=== PATIENT | female | born 1975 | race Caucasian/White ===

== ENCOUNTER → 2016-08-12 | Outpatient (CLI) | payer BC ==
[~2016-08-12] MED LIST: ACET325T96 PO; ALBUAER INH; ALBUAER PO; CLR10 PO; DIPH1TAB PO; EPIN1INJ37 IM; HYDR-5688 PO; IBUP-103 PO; LANS30TA3 PO; ONDA4TAB46 PO; POTA10TA32 PO; POTA10TA79 PO; PRD10 PO; SYMIN INH
--- NOTE | 2016-08-12 12:36 | MAMMOGRAPHY REPORT ---
ULTRASOUND OF BOTH BREASTS: 08/12/2016 CLINICAL HISTORY: 41 year-old woman called back from screening mammography for a 10 mm curvilinear c ircumscribed and lobulated mass in the lower inner quadrant of the left breast. Unknown family hist ory of breast cancer. COMPARISON: Comparison is made to exam dated: 08/07/2016 mammogram - [facility]. FINDINGS: Targeted ultrasound was performed in the lower inner quadrant of the left breast. In the 7:00 axis, 4 cm from the nipple, there are 3 adjacent oval parallel circumscribed anechoic cysts. In conglomerate they measure 11.7 mm in greatest dimension. This correlates with the mammographic a ppearance of a curvilinear and lobulated 10 mm mass in the left lower inner quadrant. These cysts a re benign and no further workup is needed at this time. Recommend follow-up at time of next annual screening mammogram. IMPRESSION: ACR BI-RADS CATEGORY 2: BENIGN The lobulated curvilinear circumscribed mass in the lower inner quadrant of the left breast correlat es with 3 adjacent oval parallel anechoic simple cysts on ultrasound. No further workup is needed a t this time. Recommend follow-up at time of next annual screening mammogram. These results and rec ommendations were discussed with the patient at the time of the exam. Margarita Turner M.D. ay/:08/12/2016 10:51:55 [employer]: Mariama BARRETO)([place]), [facility] letter sent: Normal 1/2 BI-RADS Code: ACR BI-RADS Category 2: Benign
== END | disposition home or self-care (01) ==
LOC: C.MAMM 10:20
PROVIDERS: ATTEND Obstetrics & Gynecology
DX: N63 Unspecified lump in breast (principal)

== ENCOUNTER → 2016-08-12 | Outpatient (CLI) | payer BC, OTHER ==
[2016-08-12 16:07] LABS: BLOOD UREA NITROGEN 8 mg/dl (7-18); BUN/CREATININE RATIO 9.7 (10-20); CARBON DIOXIDE 27 mmol/L (21-32); CHLORIDE 104 mmol/L (98-107); CREATININE 0.81 mg/dl (0.60-1.20); GLUCOSE 99 mg/dl (70-99); POTASSIUM 4.5 mmol/L (3.5-5.1); SODIUM 137 mmol/L (136-145)
== END | disposition home or self-care (01) ==
LOC: C.LAB 12:32
PROVIDERS: ATTEND Family Medicine
DX: E87.6 Hypokalemia (principal)

== ENCOUNTER 2016-08-16 16:26 | Emergency (ER) | payer BC, OTHER ==
[~2016-08-16] VITALS: Ht 165.1 cm; Wt 94.8 kg
[~2016-08-16 16:26] MED LIST changes: -ACET325T96 PO; -ALBUAER PO; -CLR10 PO; -DIPH1TAB PO; -EPIN1INJ37 IM; -HYDR-5688 PO; -IBUP-103 PO; -LANS30TA3 PO; -ONDA4TAB46 PO; -POTA10TA79 PO; -PRD10 PO
[2016-08-16 16:40] VITALS: TEMP 37; Ht 165.1 cm; Wt 94.8 kg
[2016-08-16] MEDS ORDERED: KETOROLAC TROMETHAMINE 30 MG/ML VIAL IV STA (17:35)
[2016-08-16] MEDS ORDERED: SODIUM CHLORIDE 0.9% 1000ML 2,000 ML IV STA (17:35)
[2016-08-16] MEDS ORDERED: ONDANSETRON INJ 2 MG/ML 2 ML VIAL IV STA (17:35)
[2016-08-16] MEDS ORDERED: POTA10TA79 PO (18:32)
[2016-08-16 18:44] LABS: URINE APPEARANCE TURBID (CLEAR); URINE BILIRUBIN NEG (NEG); URINE COLOR DK YELLOW; URINE EPITHELIAL CELL AUTO >30 /lpf (0-5); URINE NITRITE NEG (NEG); URINE PH 5.5 (4.5-7.5); URINE SPECIFIC GRAVITY 1.032 (1.000-1.030); UROBILINOGEN NEG (NEG); ZZUR CULT IF INDIC CLEAN CATCH YES
[2016-08-16 18:47] LABS: MANUAL MICROSCOPIC REQUIRED? NO; REVIEW REQ? YES
--- NOTE | 2016-08-16 19:18 | DIAGNOSTIC IMAGING REPORT ---
PA CHEST RADIOGRAPH AND UPRIGHT AND SUPINE AP RADIOGRAPHS OF THE ABDOMEN CLINICAL HISTORY: Diarrhea. COMPARISON STUDY: Chest radiograph August 05, [address] of the abdomen and pelvis January 16, 2016. FINDINGS: Lung volumes are mildly diminished. There is no pneumothorax or evidence of pulmonary edema. Cardiac size is normal. There is minimal left basilar opacity. No free air is present. There are cholecystectomy clips. There are a few mildly dilated loops of small bowel. There is gas within the colon and rectum. IMPRESSION: 1. No free air. 2. A few prominent loops of small bowel without convincing evidence for a small bowel obstruction. 3. Minimal left basilar opacity. While nonspecific, this likely reflects atelectasis. Electronically signed by: Jacky Galeana M.D. 08/16/2016 7:16 PM Dictated Date/Time: 08/16/2016 7:14 PM
[2016-08-16 19:24] LABS: BLOOD UREA NITROGEN 12 mg/dl (7-18); GLUCOSE 89 mg/dl (70-99)
[2016-08-16 19:25] LABS: ALT/SGPT 42 U/L (12-78); AST/SGOT 28 U/L (15-37); BUN/CREATININE RATIO 16.6 (10-20); CALCIUM 8.9 mg/dl (8.5-10.1); CARBON DIOXIDE 23 mmol/L (21-32); CHLORIDE 108 mmol/L (98-107); CREATININE 0.71 mg/dl (0.60-1.20); POTASSIUM 3.3 mmol/L (3.5-5.1); SODIUM 141 mmol/L (136-145)
[2016-08-16 19:27] LABS: ALKALINE PHOSPHATASE 59 U/L (45-117)
[2016-08-16 20:22] LABS: BASO % 0.4 %; BASO ABS # 0.03 K/uL (0-0.2); COMPLETE YES; EOS % 1.9 %; HEMATOCRIT 34.5 % (37-47); IG% 0.5 %; LYMPH % 29.6 %; LYMPH ABS # 2.45 K/uL (1.2-3.4); MEAN CELL VOLUME 82.7 fL (80-100); MEAN CORPUSCULAR HEMOGLOBIN 27.3 pg (25-34); MEAN PLATELET VOLUME 10.1 fL (7.4-10.4); NEUT % 61.6 %; PLATELET COUNT 234 K/uL (130-400); RED BLOOD COUNT 4.17 M/uL (4.2-5.4); WHITE BLOOD COUNT 8.28 K/uL (4.8-10.8)
[2016-08-16] MEDS ORDERED: ONDA4TAB46 PO (20:28)
[2016-08-16 20:29] VITALS: BP 111/74; PULSE 81; O2SAT 99
--- NOTE | 2016-08-16 20:46 | EMERGENCY ROOM VISIT NOTE ---
History Report prepared by Shilo: Elana Reeves Under the Supervision of: Bryon XiongO. First contact with patient: 17:22 Chief Complaint: ABDOMINAL PAIN Stated Complaint: STOAMCH PAIN Nursing Triage Summary: pt has had n/v/d since Friday [facility] abd pain History of Present Illness The patient is a 41 year old female who presents to the Emergency Room with complaints of persistent abdominal pain that began Friday. She currently rates her discomfort as an 8/10 in severity and describes it as a cramping. The patient states that two weeks ago she was in the emergency department with breathing difficulties and ended up being intubated. She states that they found that her Potassium was low at that time. The patient states that this past Friday she became sick while at work. She states that she thought her Potassium was low again at this time so she called her PCP. The patient states that on Friday and Friday she had abdominal pain, vomiting, and diarrhea. She states that by Friday her vomiting has subsided, but still noted diarrhea and weakness. The patient states that she still went to work that day. She states that on she was feeling better so her and her ate Daniella' s, but states that she developed diarrhea right after she ate. The patient states that she took an Imodium, which she normal does not. She states that she took Pepto Bismol this morning as well. The patient states that she went to [facility] today and was sent here for further work up. She additionally notes leg cramping, and gas today. The patient notes a history of appendectomy and cholecystectomy. She denies any history of c-diff. The patient denies any recent travel. Pt denies headache, change in vision, fevers, chest pain, shortness of breath, nausea, pain with urination, and melena. Source of History: patient Onset: Friday Position: abdomen Symptom Intensity: 8/10 Quality: cramping Timing: other (persistent) Associated Symptoms: + diarrhea, + vomiting, + weakness Note: Associated Symptoms: gas, leg cramping Review of Systems See HPI for pertinent positives & negatives. A total of 10 systems reviewed and were otherwise negative. Past Medical & Surgical Medical Problems: (1) Abdominal pain (2) Acute respiratory failure (3) CALCULUS OF KIDNEY (4) CALCULUS OF URETER (5) Chest pain (6) Dyspnea (7) IRRITABLE BOWEL SYNDROME (8) LUMBAGO (9) PERITONEAL HEDLGASBL-AZRJ-GI/INF (10) Toxic effect of fumes (11) TUBAL LIGATION STATUS (12) Wheeze Family History No family history of cardiac disease Social History Smoking Status: Never Smoker Alcohol Use: none Drug Use: none Marital Status: Housing Status: lives with family Occupation Status: employed Current/Historical Medications Scheduled Potassium Chloride Microencaps (Potassium Chloride Cr), 10 MEQ PO BID Scheduled PRN Epinephrine (Epinephrine), 0.3 MG IM UD PRN for ALLERGIC REACTION Ondansetron Hcl (Zofran), 4 MG PO TID PRN for Nausea Allergies Coded Allergies: Penicillins (Verified Allergy, Intermediate, HIVES, VOMITING, 08/05/16) HIVES Physical Exam Vital Signs Date Time Temp Pulse Resp B/P Pulse Ox O2 Delivery O2 Flow Rate FiO2 08/16/16 20:29 81 20 111/74 99 Room Air 08/16/16 18:42 86 20 125/85 100 Room Air 08/16/16 16:40 37.0 98 20 129/85 99 Room Air Physical Exam GENERAL: Ambulates through room without difficulty, alert, well appearing, well nourished, no distress, non-toxic EYE EXAM: normal conjunctiva. OROPHARYNX: no exudate, no erythema, lips, buccal mucosa, and tongue normal and mucous membranes are moist NECK: supple, no nuchal rigidity, no adenopathy, non-tender LUNGS: Clear to auscultation. Normal chest wall mechanics HEART: no murmurs, S1 normal and S2 normal ABDOMEN: Mild diffuse tenderness, nonfocal. abdomen soft, normo-active bowel sounds, no masses, no rebound or guarding. BACK: Back is symmetrical on inspection and there is no deformity, no midline tenderness, no CVA tenderness. SKIN: no rashes and no bruising UPPER EXTREMITIES: upper extremities are grossly normal. LOWER EXTREMITIES: No pitting edema. NEURO EXAM: Normal sensorium, cranial nerves II-XII grossly intact, normal speech, no gross weakness of arms, no gross weakness of legs. Medical Decision & Procedures ER Provider Diagnostic Interpretation: Xray results per the radiologist and my interpretation. Other results have been interpreted by the radiologist and reviewed by me. PA CHEST RADIOGRAPH AND UPRIGHT AND SUPINE AP RADIOGRAPHS OF THE ABDOMEN CLINICAL HISTORY: Diarrhea. COMPARISON STUDY: Chest radiograph August 05, [address] of the abdomen and pelvis January 16, 2016. FINDINGS: Lung volumes are mildly diminished. There is no pneumothorax or evidence of pulmonary edema. Cardiac size is normal. There is minimal left basilar opacity. No free air is present. There are cholecystectomy clips. There are a few mildly dilated loops of small bowel. There is gas within the colon and rectum. IMPRESSION: 1. No free air. 2. A few prominent loops of small bowel without convincing evidence for a small bowel obstruction. 3. Minimal left basilar opacity. While nonspecific, this likely reflects atelectasis. Electronically signed by: Jacky Galeana M.D. 08/16/2016 7:16 PM Dictated Date/Time: 08/16/2016 7:14 PM Laboratory Results 08/16/16 20:05 Red Blood Count 4.17, Mean Corpuscular Volume 82.7, Mean Corpuscular Hemoglobin 27.3, Mean Corpuscular Hemoglobin Concent 33.0, Mean Platelet Volume 10.1, Neutrophils (%) (Auto) 61.6, Lymphocytes (%) (Auto) 29.6, Monocytes (%) (Auto) 6.0, Eosinophils (%) (Auto) 1.9, Basophils (%) (Auto) 0.4, Neutrophils # (Auto) 5.10, Lymphocytes # (Auto) 2.45, Monocytes # (Auto) 0.50, Eosinophils # (Auto) 0.16, Basophils # (Auto) 0.03 08/16/16 18:35 Test 08/16/16 18:22 08/16/16 18:35 08/16/16 20:05 Urine Color DK YELLOW Urine Appearance TURBID (CLEAR) Urine pH 5.5 (4.5-7.5) Urine Specific [place] 1.032 (1.000-1.030) Urine Protein TRACE (NEG) Urine Glucose (UA) NEG (NEG) Urine Ketones 3+ (NEG) Urine Occult Blood NEG (NEG) Urine Nitrite NEG (NEG) Urine Bilirubin NEG (NEG) Urine Urobilinogen NEG (NEG) Urine Leukocyte Esterase NEG (NEG) Urine WBC (Auto) >30 /hpf (0-5) Urine RBC (Auto) 5-10 /hpf (0-4) Urine Hyaline Casts (Auto) 5-10 /lpf (0-5) Urine Epithelial Cells (Auto) >30 /lpf (0-5) Urine Bacteria (Auto) 4+ (NEG) Urine Crystals CALCIUM OXALATE (NONE Urine Pathogenic Casts /lpf (0) Urine Yeast (Auto) (NONE PRSENT) Urine Test NEG (NEG) Anion Gap 10.0 mmol/L (3-11) Est Creatinine Clear Calc Drug Dose 119.9 ml/min Estimated GFR () 123.5 Estimated GFR (Non- 106.5 BUN/Creatinine Ratio 16.6 (10-20) Calcium Level 8.9 mg/dl (8.5-10.1) Total Bilirubin 0.4 mg/dl (0.2-1) Direct Bilirubin < 0.1 mg/dl (0-0.2) Aspartate Amino Transf (AST/SGOT) 28 U/L (15-37) Alanine Aminotransferase (ALT/SGPT) 42 U/L (12-78) Alkaline Phosphatase 59 U/L (45-117) Total Protein 7.4 gm/dl (6.4-8.2) Albumin 3.9 gm/dl (3.4-5.0) Lipase 65 U/L (73-393) White Blood Count 8.28 K/uL (4.8-10.8) Red Blood Count 4.17 M/uL (4.2-5.4) Hemoglobin 11.4 g/dL (12.0-16.0) Hematocrit 34.5 % (37-47) Mean Corpuscular Volume 82.7 fL (80-100) Mean Corpuscular Hemoglobin 27.3 pg (25-34) Mean Corpuscular Hemoglobin Concent 33.0 g/dl (32-36) Platelet Count 234 K/uL (130-400) Mean Platelet Volume 10.1 fL (7.4-10.4) Neutrophils (%) (Auto) 61.6 % Lymphocytes (%) (Auto) 29.6 % Monocytes (%) (Auto) 6.0 % Eosinophils (%) (Auto) 1.9 % Basophils (%) (Auto) 0.4 % Neutrophils # (Auto) 5.10 K/uL (1.4-6.5) Lymphocytes # (Auto) 2.45 K/uL (1.2-3.4) Monocytes # (Auto) 0.50 K/uL (0.11-0.59) Eosinophils # (Auto) 0.16 K/uL (0-0.5) Basophils # (Auto) 0.03 K/uL (0-0.2) RDW Standard Deviation 41.0 fL (36.4-46.3) RDW Coefficient of Variation 13.5 % (11.5-14.5) Immature Granulocyte % (Auto) 0.5 % Immature Granulocyte # (Auto) 0.04 K/uL (0.00-0.02) Laboratory results per my review. Medications Administered Medications (Trade) Dose Ordered Sig/Hussein Route Start Time Stop Time Status Last Admin Dose Admin Sodium Chloride (Nss 1000ml) 2,000 ml @ 999 mls/hr Q2H1M STAT IV 08/16/16 17:35 08/16/16 19:35 DC 08/16/16 18:32 999 MLS/HR Ondansetron HCl (Zofran Inj) 4 mg NOW STAT IV 08/16/16 17:35 08/16/16 17:36 DC 08/16/16 18:31 4 MG Ketorolac Tromethamine (Toradol Inj) 30 mg NOW STAT IV 08/16/16 17:35 08/16/16 17:36 DC 08/16/16 18:31 30 MG ED Course ED COURSE: Vital signs were reviewed and showed normal vitals The patients medical record was reviewed The above diagnostic studies were performed and reviewed. ED treatments and interventions as stated above. 1724: The patient was evaluated in room A3. A complete history and physical examination was performed. 1735: Ordered Toradol Inj 30 mg IV, Zofran Inj 4 mg IV, Sodium Chloride 2000 ml @ 999 mls/hr. 1850: I updated the patient at this time. She is going over for her x-ray. 2018: I reevaluated the patient and she is feeling much better. 8: Upon reevaluation, the patient is doing well.I discussed my findings with the patient and she understands and agrees with the treatment plan. Based on the patients age, coexisting illnesses, exam and lab findings the decision to treat as an outpatient was made. The patient remained stable while under my care. The patient appeared well at the time of discharge. Medical Decision Differential diagnoses includes but is not limited to gastritis, peptic ulcer disease, GERD, gallbladder disease, pancreatitis, small bowel obstruction, acute coronary syndrome, pericarditis, ischemic bowel, irritable bowel disease, irritable bowel syndrome, appendicitis, diverticulitis, malignancy, hernia, urinary tract infection, torsion, /ectopic (if female), perforation, trauma, infectious. 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 Her symptoms started out with vomiting and diarrhea on Friday but now is currently just diarrhea. She notes that she does have diffuse abdominal cramping which is improved with bowel movements. Labs show no significant leukocytosis or anemia. BMP had a mild hypokalemia at 3.3. LFTs along with bilirubin was unremarkable. Lipase was negative. UA was contaminated. She has no urinary symptoms and will not pursue. Obstruction series shows no obvious obstruction. She is not vomiting and is able to eat and drink. I do not believe that this is the cause of her symptoms. She had no signs peritonitis on exam. I did not elect to CT her because of this. I do favor this is likely either viral or C. difficile. She is unable to give a stool sample in the ER. I stressed the importance of her following up with her PCP tomorrow to give a stool sample. 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 She was given 2 L normal saline was significant improvement of her symptoms. Discussed with Pt concerning signs and symptoms to watch out for. Pt was instructed to follow up with their PCP and discussed with the patient their option to return to the ED at anytime for persistent or worsening symptoms. The appropriate anticipatory guidance and out-patient management, including indications for return to the emergency department, were explained at length to the patient and understood. Impression Primary Impression: Diarrhea Additional Impression: Abdominal cramping Scribe Attestation The scribe's documentation has been prepared under my direction and personally reviewed by me in its entirety. I confirm that the note above accurately reflects all work, treatment, procedures, and medical decision making performed by me. Departure Information Dispostion Home / Self-Care Prescriptions Ondansetron Hcl (ZOFRAN) 4 Mg Tab 4 MG PO TID Y for Nausea, #20 TAB Prov: Kar James, DO 08/16/16 Referrals RV. Patrick MD (PCP) Forms Call Back Authorization, HOME CARE DOCUMENTATION FORM, IMPORTANT VISIT INFORMATION, [facility] Patient Instructions A Signature Page, Diarrhea, Vomit Diarrhea Self Care Additional Instructions Please follow up with your primary care doctor with in the next 24 hours. Any worsening of your symptoms, please return to the ED immediately. This includes passing out, persistent nausea vomiting, bloody stool, or any other concerning signs or symptoms from your standpoint. You must follow up in 24 hours to obtain a stool sample for possible C. difficile.
[2016-10-01] MEDS ORDERED: ALBUAER PO (10:42)
[2016-10-01] MEDS ORDERED: DIPH1TAB PO (10:42)
== END 2016-08-16 20:57 | disposition home or self-care (01) ==
LOC: C.EDB 16:27 → C.EDA 20:57
DX: R19.7 Diarrhea, unspecified (principal); R10.9 Unspecified abdominal pain; E87.6 Hypokalemia; K58.9 Irritable bowel syndrome, unspecified

== ENCOUNTER 2016-08-20 10:00 | Emergency (ER) | payer BC ==
[~2016-08-20] VITALS: Ht 166.4 cm; Wt 97.0 kg
[~2016-08-20 10:00] MED LIST changes: -ALBUAER INH; +ONDA4TAB46 PO; -POTA10TA32 PO; +POTA10TA79 PO; -SYMIN INH
[2016-08-20 10:04] VITALS: TEMP 36.7; O2SAT 99; Ht 166.4 cm; Wt 97.0 kg
[2016-08-20] MEDS ORDERED: RACEPINEPHRINE 2.25% NEBU SOLN 0.5 ML VIAL INH STA (10:24)
[2016-08-20] MEDS ORDERED: SODIUM CHLORIDE 0.9% 1000ML 1,000 ML IV STA (10:29)
[2016-08-20] MEDS ORDERED: DiphenhydrAMINE HCL 50 MG/ML VIAL IV STA (10:29)
[2016-08-20] MEDS ORDERED: METHYLPREDNISOLONE 125 MG VIAL IV STA (10:29)
[2016-08-20] MEDS ORDERED: RANITIDINE HCL 150 MG TAB PO ONE (10:30)
[2016-08-20 10:48] VITALS: PULSE 110; O2SAT 99
[2016-08-20 11:12] VITALS: BP 140/85; PULSE 103; O2SAT 97
[2016-08-20] MEDS ORDERED: DEXAMETHASONE SOD INJ 10 MG/ML VIAL IM ONE (11:15)
--- NOTE | 2016-08-20 11:30 | EMERGENCY ROOM VISIT NOTE ---
History First contact with patient: 10:06 Chief Complaint: RESPIRATORY PROBLEMS Stated Complaint: BREATHING DIFFICULTY Nursing Triage Summary: Patient stated she was working and walked in where they were waxing or something. Patient states she started with resp. difficulty at that time. Patient states she took one benadryl tablet and used her inhaler with minimal relief. Patient reports throat tightness. Patient was given her epi pen by a co-worker. Patient states she "feels better now". History of Present Illness The patient is a 41 year old female who presents to the Emergency Room with complaints of difficulty breathing She believes it is in reaction to newly coated floor wax smell, and feels her initial reaction occurred at 9:45am She took her albuterol inhaler, which provided no relief Subsequently, she took a Benadryl tablet. She had difficulty swallowing the tablet because she felt her throat was closing in. She was also experiencing significant coughing. She then handed her epi-pen to a colleague, who administered it into the patient 's right upper thigh at 9:55am. Patient felt significant relief immediately Currently, throat slightly tight on left side, still has minimal shortness of breath No CP, nausea, vomiting, abdominal pain. Past Medical/Surgical History Medical Problems: (1) Abdominal pain (2) Acute respiratory failure (3) CALCULUS OF KIDNEY (4) CALCULUS OF URETER (5) Chest pain (6) Dyspnea (7) IRRITABLE BOWEL SYNDROME (8) LUMBAGO (9) PERITONEAL [id number]-[id number]-HH/INF (10) Toxic effect of fumes (11) TUBAL LIGATION STATUS (12) Wheeze Family History No family history of cardiac disease Social History Smoking Status: Never Smoker Alcohol Use: none Drug Use: none Marital Status: Housing Status: lives with family Occupation Status: employed Current/Historical Medications Scheduled PRN Albuterol Sulfate (Proventil Hfa), 2 PUFF PO Q4 PRN for Shortness of Breath Diphenhydramine Hcl (Benadryl Allergy), 25 MG PO DIRECTED PRN for ALLERGIC REACTION Epinephrine (Epinephrine), 0.3 MG IM UD PRN for ALLERGIC REACTION Ondansetron Hcl (Zofran), 4 MG PO TID PRN for Nausea Allergies Coded Allergies: Penicillins (Verified Allergy, Intermediate, HIVES, VOMITING, 08/05/16) HIVES Floor Waxes/Polishes (Unverified Allergy, Unknown, shortness of breath, 05/27) Physical Exam Vital Signs Date Time Temp Pulse Resp B/P Pulse Ox O2 Delivery O2 Flow Rate FiO2 08/20/16 11:12 103 16 140/85 97 Room Air 08/20/16 10:48 110 20 99 Room Air 08/20/16 10:07 105 08/20/16 10:04 36.7 103 18 131/73 100 Room Air 08/20/16 10:04 99 Room Air 08/20/16 10:04 99 Room Air Physical Exam GENERAL: alert, well appearing, well nourished, sitting in bed, no acute distress, non-toxic HEAD: Normocephalic, atraumatic. No sinus tenderness. EYES: PERRL, EOMI, normal conjunctiva OROPHARYNX: no exudate, no erythema, lips, buccal mucosa, and tongue normal and mucous membranes are moist NECK: supple, no nuchal rigidity, no adenopathy, non-tender LUNGS: Clear to auscultation. Normal chest wall mechanics, good air entry. No crepitations, crackles, or wheezes HEART: no murmurs, S1 normal and S2 normal CHEST: No reproducible tenderness. ABDOMEN: abdomen soft, non-tender, normo-active bowel sounds, no masses, no rebound or guarding. BACK: Back is symmetrical on inspection, no deformities, no midline tenderness, no CVA tenderness. SKIN: Warm, pink, dry. No erythema, rashes, or bruising. EXTREMITIES: Grossly normal. Moving all 4 limbs, strength 5/5. No pitting edema. Calves non tender. NEURO: Alert, Ox3. No focal deficits. Normal sensorium, cranial nerves II-XII grossly intact, normal speech. PSYCH: Mood and affect appropriate. Medical Decision & Procedures Medications Administered Medications (Trade) Dose Ordered Sig/Hussein Route Start Time Stop Time Status Last Admin Dose Admin Racepinephrine (Raccemic Epinephrine 2.25% 0.5ML Neb) 0.5 ml NOW STAT INH 08/20/16 10:24 08/20/16 10:32 DC 08/20/16 10:47 0.5 ML Medical Decision 41 year old female presented with acute onset difficulty breathing The patient was evaluated in room B4. A complete history and physical exam was performed. Differential diagnoses includes but is not limited to pneumonia, bronchitis, COPD/Asthma exacerbation, pneumothorax, pulmonary embolism, congestive heart failure, acute coronary syndrome Patient was given racemic epinephrine for symptom relief. Additionally, 1L of IV normal saline was given to improve hydration status. For prolonged relief with reduced inflammation, patient was also given 10mg IM dexamethasone and 150mg PO ranitidine. Given recurrence of symptoms, patient strongly advised to seek care from an sports therapist. In the interim, should a recurrence of symptoms occurs, Benadryl and epi-pen can be used for relief prior to returning to the ED. Patient understands and agreeable with care plan. Patient discharged home well. Impression Primary Impression: Breathing difficulty Departure Information Dispostion Home / Self-Care Condition GOOD Referrals RV. Patrick MD (PCP) Patient Instructions A Signature Page, My [facility] [place] Additional Instructions You were seen in the ED today for an acute episode of difficulty breathing. You vitals were noted to be improved as a result of the epi-pen you self administered. You were given racemic epinephrine and an IM steroid to reduce inflammation and subsequently improve symptoms. Upon discharge, we urge you to follow up with your sports therapist with regards to your reactions to various allergens. 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 You have been examined and treated today on an emergency basis only. This is not a substitute for, or an effort to provide, complete comprehensive medical care. It is impossible to recognize and treat all injuries or illnesses in a single emergency department visit. It is therefore important that you make a follow up with your physician for close monitoring. We urge you to return to ER if similar symptoms return or if you develop worsening or persistent dizziness, vomiting, headache, fevers, chest pains, difficulty breathing, black or bloody stools, slurred speech, numbness, weakness , visual changes, or as needed.
--- NOTE | 2016-09-27 19:19 | EMERGENCY ROOM VISIT NOTE ---
History Report prepared by Shilo: Andria Cedeno Under the Supervision of: Dr. Reinaldo Vail M.D. First contact with patient: 10:05 Chief Complaint: RESPIRATORY PROBLEMS Stated Complaint: BREATHING DIFFICULTY Nursing Triage Summary: Patient stated she was working and walked in where they were waxing or something. Patient states she started with resp. difficulty at that time. Patient states she took one benadryl tablet and used her inhaler with minimal relief. Patient reports throat tightness. Patient was given her epi pen by a co-worker. Patient states she "feels better now". History of Present Illness The patient is a 41 year old female who presents to the Emergency Room with complaints of a sudden onset of respiratory difficulties after coming into contact with floor wax just prior to arrival. Currently, she is feeling better after having relief with administration of her EpiPen just prior to arrival. Patient notes that she has a history of allergies to certain perfumes and odors , and she carries an EpiPen with her in case of reactions. At the time of onset of symptoms today, the patient walked into work where they had just waxed the floors. After smelling the wax, patient immediately felt her throat begin to tighten, and she started coughing and having difficulty breathing. Patient did attempt to take 1 Benadryl tablet, which he had difficulty swallowing secondary to the tight sensation in her throat, however, as her symptoms persisted without relief, she then handed her friend her EpiPen, who was able to inject it into her right thigh. After administration of the epinephrine, patient had immediate relief. However, she was sent to the ED for further evaluation. Throughout the episode, patient denies having experiencing swelling, chest pain , rash, or itchiness. She also denies other recent illness or complaints prior to onset today. 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 ) Timing: other (sudden onset) Modifying Factors (Worsening): other (smelling floor wax) Modifying Factors (Relieving): other (epinephrine) Associated Symptoms: + SOB, + sorethroat (tightness), No chest pain, No nausea, No vomiting Note: Patient denies swelling or itchiness. Review of Systems See HPI for pertinent positives & negatives. A total of 10 systems reviewed and were otherwise negative. Past Medical & Surgical Medical Problems: (1) Abdominal pain (2) Acute respiratory failure (3) CALCULUS OF KIDNEY (4) CALCULUS OF URETER (5) Chest pain (6) Dyspnea (7) IRRITABLE BOWEL SYNDROME (8) LUMBAGO (9) PERITONEAL [id number]-WV/INF (10) Toxic effect of fumes (11) TUBAL LIGATION STATUS (12) Wheeze Family History No family history of cardiac disease Social History Smoking Status: Never Smoker Alcohol Use: none Drug Use: none Marital Status: Housing Status: lives with family Occupation Status: employed Current/Historical Medications Scheduled PRN Albuterol Sulfate (Proventil Hfa), 2 PUFF PO Q4 PRN for Shortness of Breath Diphenhydramine Hcl (Benadryl Allergy), 25 MG PO DIRECTED PRN for ALLERGIC REACTION Epinephrine (Epinephrine), 0.3 MG IM UD PRN for ALLERGIC REACTION Ondansetron Hcl (Zofran), 4 MG PO TID PRN for Nausea Allergies Coded Allergies: Penicillins (Verified Allergy, Intermediate, HIVES, VOMITING, 08/05/16) HIVES Floor Waxes/Polishes (Unverified Allergy, Unknown, shortness of breath, 05/27) Physical Exam Vital Signs Date Time Temp Pulse Resp B/P Pulse Ox O2 Delivery O2 Flow Rate FiO2 08/20/16 11:12 103 16 140/85 97 Room Air 08/20/16 10:48 110 20 99 Room Air 08/20/16 10:07 105 08/20/16 10:04 36.7 103 18 131/73 100 Room Air 08/20/16 10:04 99 Room Air 08/20/16 10:04 99 Room Air Physical Exam GENERAL: Patient is a healthy-appearing well-nourished 41 year old female HEAD: Normocephalic atraumatic EYES: Ocular movements intact pupils equal and react to light OROPHARYNX mucous membranes are moist no exudates present no erythema or edema present NECK: Supple no nuchal rigidity. No stridor. CHEST: Good equal expansion LUNGS: Clear and equal to auscultation CARDIAC: Normal S1 and S2 ABDOMEN: Soft nontender no guarding BACK: No CVA tenderness EXTREMITIES: No pain upon palpation normal muscle strength in all groups no clubbing cyanosis or edema NEURO: Patient is following commands is answering questions appropriately. Alert and oriented x3 Cranial Nerves 2-12 grossly intact Medical Decision & Procedures Medications Administered Medications (Trade) Dose Ordered Sig/Hussein Route Start Time Stop Time Status Last Admin Dose Admin Ranitidine HCl (zANTac TAB) 150 mg NOW ONCE PO 08/20/16 10:30 08/20/16 10:31 DC 08/20/16 11:18 150 MG Racepinephrine (Raccemic Epinephrine 2.25% 0.5ML Neb) 0.5 ml NOW STAT INH 08/20/16 10:24 08/20/16 10:32 DC 08/20/16 10:47 0.5 ML Dexamethasone Sodium Phosphate (Decadron Inj) 10 mg NOW ONCE IM 08/20/16 11:15 08/20/16 11:16 DC 08/20/16 11:19 10 MG ED Course 1010: Past medical records reviewed. The patient was evaluated in room B4. A complete history and physical examination was performed. 1024: Racepinephrine 0.5 ml INH was ordered. 1029: Benadryl 50 mg IV, NSS bolus IV, Solu-Medrol 125 mg IV and Ranitidine HCl 150 mg PO were ordered. 1115: Decadron 10 mg IM was ordered. 1120: Upon reevaluation, the patient was doing well and was resting more comfortably. She was asymptomatic at this time. I updated her on my findings on her exam. She was requesting to go back to work. Discharge instructions were discussed. She verbalized her understanding and agreement with the treatment plan, and she is now ready for disposition. Medical Decision Differential diagnosis: Etiologies such as allergic reaction, anaphylaxis, urticaria, Morrow-Haseeb syndrome, toxic epidermal necrolysis, erythema multiforme, cellulitis, as well as others were entertained. Resident Physician Supervision Note: I interviewed and examined the patient. Discussed with Dr. Daly and agree with findings and plan as documented in the note. Documented By: Reianldo Vail Impression Primary Impression: Breathing difficulty Scribe Attestation The scribe's documentation has been prepared under my direction and personally reviewed by me in its entirety. I confirm that the note above accurately reflects all work, treatment, procedures, and medical decision making performed by me. Departure Information Dispostion Home / Self-Care Referrals RV. Patrick MD (PCP) Forms HOME CARE DOCUMENTATION FORM, IMPORTANT VISIT INFORMATION, WORK / SCHOOL INSTRUCTIONS Patient Instructions A Signature Page, My [facility] Additional Instructions You were seen in the ED today for an acute episode of difficulty breathing. You vitals were noted to be improved as a result of the epi-pen you self administered. You were given racemic epinephrine and an IM steroid to reduce inflammation and subsequently improve symptoms. 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 This is important for skilled nursing health maintenance. You have been examined and treated today on an emergency basis only. This is not a substitute for, or an effort to provide, complete comprehensive medical care. It is impossible to recognize and treat all injuries or illnesses in a single emergency department visit. It is therefore important that you make a follow up with your physician for close monitoring. We urge you to return to ER if similar symptoms return or if you develop worsening or persistent dizziness, vomiting, headache, fevers, chest pains, difficulty breathing, black or bloody stools, slurred speech, numbness, weakness , visual changes, or as needed.
[2016-10-01] MEDS ORDERED: ALBUAER PO (10:42)
[2016-10-01] MEDS ORDERED: DIPH1TAB PO (10:42)
== END 2016-08-20 11:27 | disposition home or self-care (01) ==
LOC: EDBD 10:00 → C.EDB 10:01
DX: R06.00 Dyspnea, unspecified (principal); K58.9 Irritable bowel syndrome, unspecified; Z87.442 Personal history of urinary calculi; Z98.51 Tubal ligation status; Z79.899 Other long term (current) drug therapy; Z88.0 Allergy status to penicillin

== ENCOUNTER → 2016-08-21 | Outpatient (CLI) | payer BC ==
[~2016-08-21] MED LIST changes: +ACET325T96 PO; +ALBUAER PO; +CLR10 PO; +DIPH1TAB PO; +EPIN1INJ37 IM; +HYDR-5688 PO; +IBUP-103 PO; +LANS30TA3 PO; -POTA10TA79 PO; +PRD10 PO
[2016-08-25 17:38] LABS: C1 ESTERASE INHIB FUNC 99 % (>=68); C1 ESTERASE INHIB TC298 32 mg/dL (21-39)
== END | disposition home or self-care (01) ==
LOC: C.LABSPEC 11:01
PROVIDERS: ATTEND Allergy & Immunology
DX: R22.1 Localized swelling, mass and lump, neck (principal)

== ENCOUNTER → 2016-09-09 | Outpatient (CLI) | payer BC | END | disposition home or self-care (01) | LOC: C.PAPS 16:02 | PROVIDERS: ATTEND Obstetrics & Gynecology | DX: Z01.419 Encounter for gynecological examination (general) (routine) without abnormal findings (principal) ==

== ENCOUNTER 2016-10-01 11:19 | Inpatient (IN) | payer BC ==
[~2016-10-01] VITALS: Ht 167.6 cm; Wt 95.1 kg
[~2016-10-01 11:19] MED LIST changes: -ACET325T96 PO; -CLR10 PO; -EPIN1INJ37 IM; -HYDR-5688 PO; -IBUP-103 PO; -LANS30TA3 PO; -PRD10 PO
[2016-10-01] MEDS ORDERED: CLR10 PO (11:29)
[2016-10-01] MEDS ORDERED: FAMOTIDINE 20MG/102 ML D5W IV STA ×2 (11:32→11:40)
[2016-10-01] MEDS ORDERED: SODIUM CHLORIDE 0.9% 1000ML 1,000 ML IV STA (11:32)
[2016-10-01] MEDS ORDERED: ALBUT/IPRATROP 3MG/0.5MG NEB 3 ML VIAL INH STA (11:32)
[2016-10-01] MEDS ORDERED: DiphenhydrAMINE HCL 50 MG/ML VIAL IV STA (11:32)
--- NOTE | 2016-10-01 11:39 | EMERGENCY ROOM VISIT NOTE ---
History Report prepared by Shilo: Mendel Pereyra Under the Supervision of: Dr. Rosalio Chew D.O. First contact with patient: 11:31 Chief Complaint: SHORTNESS OF BREATH Stated Complaint: SOB History of Present Illness The patient is a 41 year old female who presents to the Emergency Room with complaints of worsening shortness of breath for the past three days. The breathing trouble is exacerbated by exercise like running. The patient has also been experiencing recurrent coughing and chest "fullness." The patient has been taking Claritin for the past three days. She has also been using an inhaler, which has not helped. The patient denies any throat swelling. She has an EpiPen , which she has not used. The patient has experienced leg pain which she attributes to recent exercise. The patient called her doctor today, who referred her to the ED. Source of History: patient Onset: three days ago Position: other (respiratory) Quality: other (short of breath) Timing: other (recurrent) Associated Symptoms: + chest pain (fullness), + cough Review of Systems See HPI for pertinent positives & negatives. A total of 10 systems reviewed and were otherwise negative. Past Medical & Surgical Medical Problems: (1) Abdominal pain (2) Acute respiratory failure (3) CALCULUS OF KIDNEY (4) CALCULUS OF URETER (5) Chest pain (6) Dyspnea (7) IRRITABLE BOWEL SYNDROME (8) LUMBAGO (9) PERITONEAL ISXLLINPR-QMUZ-IR/INF (10) Status asthmaticus (11) Toxic effect of fumes (12) TUBAL LIGATION STATUS (13) Wheeze Family History No family history of cardiac disease Social History Smoking Status: Never Smoker Alcohol Use: none Drug Use: none Marital Status: Housing Status: lives with family Occupation Status: employed Current/Historical Medications Scheduled Loratadine (Claritin), 10 MG PO DAILY Scheduled PRN Albuterol Sulfate (Proventil Hfa), 2 PUFF PO Q4 PRN for Shortness of Breath Diphenhydramine Hcl (Benadryl Allergy), 25 MG PO DIRECTED PRN for ALLERGIC REACTION Epinephrine (Epinephrine), 0.3 MG IM UD PRN for ALLERGIC REACTION Ondansetron Hcl (Zofran), 4 MG PO TID PRN for Nausea Allergies Coded Allergies: Penicillins (Verified Allergy, Intermediate, HIVES, VOMITING, 10/01/16) HIVES Floor Waxes/Polishes (Unverified Allergy, Unknown, shortness of breath, ) Physical Exam Vital Signs Date Time Temp Pulse Resp B/P Pulse Ox O2 Delivery O2 Flow Rate FiO2 10/01/16 14:04 106 20 93 Nasal Cannula 2.0 10/01/16 13:49 97 24 121/80 95 Nasal Cannula 2.0 10/01/16 12:33 94 18 115/84 100 Nasal Cannula 2.0 10/01/16 12:18 101 10/01/16 12:10 108 24 124/93 100 Nasal Cannula 2.0 10/01/16 11:59 100 Nasal Cannula 2.0 10/01/16 11:58 99 26 105/86 100 Nasal Cannula 2.0 10/01/16 11:25 36.9 110 20 134/92 98 Room Air 10/01/16 11:25 98 Room Air 10/01/16 11:25 98 Room Air Physical Exam GENERAL: Patient is awake, alert, very anxious and uncomfortable appearing. EYES: The conjunctivae are clear. The pupils are round and reactive. EARS, NOSE, MOUTH AND THROAT: The nose is without any evidence of any deformity. Mucous membranes are moist tongue is midline NECK: The neck is nontender and supple. RESPIRATORY: Diminished lung sounds throughout with severe scatted expiratory wheezing, significant conversational dyspnea and pursed lip breathing. CARDIOVASCULAR: Regular rate and rhythm noted there no murmurs rubs or gallops normal S1 normal S2 GASTROINTESTINAL: The abdomen is soft. Bowel sounds are present in all quadrants. Abdomen is nontender MUSCULOSKELETAL/EXTREMITIES: There is no evidence of gross deformity full range of motion is noted in the hips and shoulders SKIN: There is no obvious evidence of any rash. There are no petechiae, pallor or cyanosis noted. NEUROLOGIC: Patient is awake alert and oriented x3. Medical Decision & Procedures ER Provider Diagnostic Interpretation: X-ray results as stated below per interpretation by me and the radiologist. CHEST ONE VIEW PORTABLE CLINICAL HISTORY: Respiratory distress. Dyspnea. COMPARISON STUDY: Chest radiograph August 16, 2016. FINDINGS: Lung volumes are diminished. This is unchanged. No pneumothorax or pleural effusions present. There is no consolidation to suggest pneumonia and there is no evidence of pulmonary edema. Cardiomediastinal silhouette is normal. IMPRESSION: No acute cardiopulmonary findings. Electronically signed by: Jacky Galeana M.D. 10/01/2016 11:57 AM Dictated Date/Time: 10/01/2016 11:56 AM Laboratory Results 10/01/16 11:30 Red Blood Count 4.76, Mean Corpuscular Volume 80.9, Mean Corpuscular Hemoglobin 27.5, Mean Corpuscular Hemoglobin Concent 34.0, Mean Platelet Volume 10.1, Neutrophils (%) (Auto) 49.9, Lymphocytes (%) (Auto) 39.1, Monocytes (%) (Auto) 5.5, Eosinophils (%) (Auto) 5.1, Basophils (%) (Auto) 0.3, Neutrophils # (Auto) 3.74, Lymphocytes # (Auto) 2.93, Monocytes # (Auto) 0.41, Eosinophils # (Auto) 0.38, Basophils # (Auto) 0.02 Test 10/01/16 00:00 10/01/16 11:30 Influenza Type A Antigen Neg for Influ A (NEG) Influenza Type B Antigen Neg for Influ B (NEG) White Blood Count 7.49 K/uL (4.8-10.8) Red Blood Count 4.76 M/uL (4.2-5.4) Hemoglobin 13.1 g/dL (12.0-16.0) Hematocrit 38.5 % (37-47) Mean Corpuscular Volume 80.9 fL (80-100) Mean Corpuscular Hemoglobin 27.5 pg (25-34) Mean Corpuscular Hemoglobin Concent 34.0 g/dl (32-36) Platelet Count 285 K/uL (130-400) Mean Platelet Volume 10.1 fL (7.4-10.4) Neutrophils (%) (Auto) 49.9 % Lymphocytes (%) (Auto) 39.1 % Monocytes (%) (Auto) 5.5 % Eosinophils (%) (Auto) 5.1 % Basophils (%) (Auto) 0.3 % Neutrophils # (Auto) 3.74 K/uL (1.4-6.5) Lymphocytes # (Auto) 2.93 K/uL (1.2-3.4) Monocytes # (Auto) 0.41 K/uL (0.11-0.59) Eosinophils # (Auto) 0.38 K/uL (0-0.5) Basophils # (Auto) 0.02 K/uL (0-0.2) RDW Standard Deviation 40.3 fL (36.4-46.3) RDW Coefficient of Variation 13.5 % (11.5-14.5) Immature Granulocyte % (Auto) 0.1 % Immature Granulocyte # (Auto) 0.01 K/uL (0.00-0.02) Prothrombin Time 10.2 SECONDS (9.0-12.0) Prothromb Time International Ratio 1.0 (0.9-1.1) Activated Partial Thromboplast Time 25.9 SECONDS (21.0-31.0) Partial Thromboplastin Ratio 1.0 Total Bilirubin 0.4 mg/dl (0.2-1) Aspartate Amino Transf (AST/SGOT) 15 U/L (15-37) Alanine Aminotransferase (ALT/SGPT) 22 U/L (12-78) Alkaline Phosphatase 61 U/L (45-117) Troponin I < 0.015 ng/ml (0-0.045) Total Protein 7.5 gm/dl (6.4-8.2) Albumin 3.9 gm/dl (3.4-5.0) Globulin 3.6 gm/dl (2.5-4.0) Albumin/Globulin Ratio 1.1 (0.9-2) Human Chorionic Gonadotropin, Qual NEG (NEG) Laboratory results per my review. Medications Administered Medications (Trade) Dose Ordered Sig/Hussein Route Start Time Stop Time Status Last Admin Dose Admin Sodium Chloride (Nss 1000ml) 1,000 ml @ 999 mls/hr Q1H1M STAT IV 10/01/16 11:32 10/01/16 12:32 DC 10/01/16 11:40 999 MLS/HR Dexamethasone Sodium Phosphate (Decadron Inj) 10 mg NOW ONCE IV 10/01/16 11:45 10/01/16 11:46 DC 10/01/16 11:40 10 MG Diphenhydramine HCl (Benadryl Inj) 25 mg NOW STAT IV 10/01/16 11:32 10/01/16 11:34 DC 10/01/16 11:40 25 MG Albuterol/ Ipratropium 3 ml 3 ml NOW STAT INH 10/01/16 11:32 10/01/16 11:34 DC 10/01/16 11:38 3 ML Famotidine/ Dextrose (Pepcid IV Inj/ D5 100ml) 102 ml @ 204 mls/hr NOW ONCE IV 10/01/16 11:45 10/01/16 12:14 DC 10/01/16 11:52 204 MLS/HR Epinephrine HCl (EpINEphrine INJ 1MG/ML AMP/VIAL) 0.3 mg NOW STAT IM 10/01/16 11:51 10/01/16 11:53 DC 10/01/16 11:56 0.3 MG Epinephrine HCl (EpINEphrine INJ 1MG/ML AMP/VIAL) 0.3 mg NOW STAT IM 10/01/16 13:25 10/01/16 13:26 DC 10/01/16 13:28 0.3 MG Albuterol/ Ipratropium (Duoneb) 12 ml ONE ONCE INH 10/01/16 13:45 10/01/16 13:46 DC 10/01/16 14:03 12 ML Acetaminophen (Tylenol Tab) 650 mg Q4H PRN PO 10/01/16 15:00 10/31/16 14:59 10/01/16 20:16 650 MG ECG Indication: SOB/dyspnea Rate (beats per minute): 96 Rhythm: normal sinus Findings: no ectopy, other (Inferior T wave abnormality.) Comparison ECG Date: 2015 Change: no significant change ED Course 1130: The patient was evaluated in room A9b. A complete history and physical examination were performed. 1132: DuoNeb 3 ml INH, Benadryl 25 mg IV, NSS 1000 ml @ 999 mls/hr. 1145: Famotidine 20 mg / dextrose 102 ml @ 204 mls/hr, Decadron 10 mg IV. 1150: The patient's symptoms are worsening. She will get epinephrine. 1151: Epinephrine 0.3 mg IM. 1325: Epinephrine 0.3 mg IM. 1342: The patient is still having trouble breathing. 1345: DuoNeb 12ml INH. 1418: Spoke with Dr. Lopez, [place] [facility]. The patient will be evaluated. 1427: Updated the patient. Medical Decision Prior records/ancillary studies reviewed. Triage Nursing notes reviewed. The patient's history was concerning for respiratory difficulties. Differential diagnosis: Etiologies such as infections, reactive airway disease, pneumonia, pneumothorax , COPD, CHF, cardiac ischemia, pulmonary embolism, musculoskeletal, gastrointestinal, as well as others were entertained. The patient is a 41-year-old female who is been having problems with severe bronchospasms because of environmental allergens recently. She presented to the emergency department with a significant difficulty breathing as well as early anaphylaxis. The patient was initially treated with IV fluids IV steroids and bronchodilator nebulizer. The patient's condition continued to worsen she was treated with IM epinephrine on 2 occasions. Her condition slowly improved but she still had very significant bronchospasm especially with any exertion. The patient was reevaluated multiple times. I discussed this case with the on-call [facility] group. They have agreed to evaluate patient in the emergency department for further management and disposition. Consults Time Called: 1410 Consulting Physician: Dr. Lopez [facility]. Returned Call: 1412 1418: Spoke with Dr. Lopez, [facility]. The patient will be evaluated. Impression Primary Impression: Allergic reaction Additional Impressions: Anaphylaxis Bronchospasm Respiratory distress Critical Care I have personally spent greater than 45 minutes of critical care time in the direct management of this patient. This includes bedside care, interpretation of diagnostic studies, and testing, discussion with consultants, patient, and family members, and other required patient management activities. This 45 minutes is in excess of all separately billable procedures. Scribe Attestation The scribe's documentation has been prepared under my direction and personally reviewed by me in its entirety. I confirm that the note above accurately reflects all work, treatment, procedures, and medical decision making performed by me. Departure Information Dispostion Being Evaluated By Hospitalist Referrals RV. Patrick MD (PCP) Patient Instructions My [facility] Problem Qualifiers Primary Impression: Allergic reaction Encounter type: sequela Qualified Codes: T78.40XS - Allergy, unspecified, sequela Additional Impressions: Anaphylaxis Encounter type: initial encounter Qualified Codes: T78.2XXA - Anaphylactic shock, unspecified, initial encounter
[2016-10-01 11:40] LABS: BASO % 0.3 %; BASO ABS # 0.02 K/uL (0-0.2); COMPLETE YES; EOS % 5.1 %; HEMATOCRIT 38.5 % (37-47); IG% 0.1 %; LYMPH % 39.1 %; LYMPH ABS # 2.93 K/uL (1.2-3.4); MEAN CELL VOLUME 80.9 fL (80-100); MEAN CORPUSCULAR HEMOGLOBIN 27.5 pg (25-34); MEAN PLATELET VOLUME 10.1 fL (7.4-10.4); MONO % 5.5 %; NEUT % 49.9 %; PLATELET COUNT 285 K/uL (130-400); RED BLOOD COUNT 4.76 M/uL (4.2-5.4); WHITE BLOOD COUNT 7.49 K/uL (4.8-10.8)
[2016-10-01] MEDS ORDERED: DEXAMETHASONE SOD INJ 10 MG/ML VIAL IV ONE (11:45)
[2016-10-01] MEDS ORDERED: FAMOTIDINE IV INJ 20 MG in DEXTROSE 5% 100ML 100 ML IV ONE (11:45)
[2016-10-01] MEDS ORDERED: EpINEphrine INJ 1MG/ML AMP 1 MG/ML AMP IM STA ×2 (11:51→13:25)
--- NOTE | 2016-10-01 11:58 | DIAGNOSTIC IMAGING REPORT ---
CHEST ONE VIEW PORTABLE CLINICAL HISTORY: Respiratory distress. Dyspnea. COMPARISON STUDY: Chest radiograph August 16, 2016. FINDINGS: Lung volumes are diminished. This is unchanged. No pneumothorax or pleural effusions present. There is no consolidation to suggest pneumonia and there is no evidence of pulmonary edema. Cardiomediastinal silhouette is normal. IMPRESSION: No acute cardiopulmonary findings. Electronically signed by: Jacky Galeana M.D. 10/01/2016 11:57 AM Dictated Date/Time: 10/01/2016 11:56 AM
[2016-10-01 12:01] LABS: ALT/SGPT 22 U/L (12-78); BLOOD UREA NITROGEN 8 mg/dl (7-18); BUN/CREATININE RATIO 10.5 (10-20); CALCIUM 9.3 mg/dl (8.5-10.1); CARBON DIOXIDE 26 mmol/L (21-32); CHLORIDE 106 mmol/L (98-107); GLUCOSE 99 mg/dl (70-99); POTASSIUM 3.3 mmol/L (3.5-5.1); SODIUM 141 mmol/L (136-145)
[2016-10-01 12:05] LABS: ALB/GLOB RATIO 1.1 (0.9-2); ALKALINE PHOSPHATASE 61 U/L (45-117); AST/SGOT 15 U/L (15-37)
[2016-10-01 12:08] LABS: PREG INTERNAL NEGATIVE QC NEG CLEAR BACKGROUND; PREG INTERNAL POSITIVE QC POS CONTROL LINE
[2016-10-01] MEDS ORDERED: ALBUT/IPRATROP 3MG/0.5MG NEB 3 ML VIAL INH ONE (13:45)
[2016-10-01 14:04] VITALS: PULSE 106; O2SAT 93
[2016-10-01] MEDS ORDERED: MAGNESIUM HYDROXIDE SUSP 30 ML UDC PO PRN (15:00)
[2016-10-01] MEDS ORDERED: ALBUTEROL 0.083% NEBU SOLN 3 ML VIAL INH PRN (15:00)
[2016-10-01] MEDS ORDERED: EPINEPHRINE ADULT AUTO-INJECT 0.3 MG SYR IM PRN (15:00)
[2016-10-01] MEDS ORDERED: ALUMINUM/MAGNESIUM/SIMETH (MAALOX MAX) 30 ML UDC PO PRN (15:00)
[2016-10-01] MEDS ORDERED: ALBUTEROL HFA 8 GM INHALER INH PRN (15:00)
[2016-10-01] MEDS ORDERED: AZITHROMYCIN IV 500 MG in DEXTROSE 5% 250ML 250 ML IV ONE (16:00)
[2016-10-01 16:05] VITALS: BP 138/67; PULSE 126; TEMP 36.9; O2SAT 96; Ht 167.6 cm; Wt 95.1 kg
[2016-10-01] MEDS ORDERED: NURSING DECISION MEDICATION ORDER SCH (16:45)
[2016-10-01] MEDS ORDERED: COUGH DROP (SUGAR FREE) LOZ 24 LOZ/1 BOX PO PRN ×2 (16:45→23:30)
[2016-10-01] MEDS ORDERED: METHYLPREDNISOLONE IV 80 MG in SYRINGE 0 ML IV ONE (17:00)
[2016-10-01] MEDS ORDERED: EPIN1INJ37 IM (18:32)
[2016-10-01 18:54] VITALS: BP 119/69; PULSE 111; TEMP 36.7; O2SAT 97
[2016-10-01 19:12] VITALS: PULSE 115; O2SAT 97
[2016-10-01] MEDS: ALBUT/IPRATROP 3MG/0.5MG NEB 3 ML VIAL INH SCH ×2 (19:12→23:59)
[2016-10-01 19:30] LABS: PROTHROMBIN TIME (PATIENT) 10.2 SECONDS (9.0-12.0)
[2016-10-01] MEDS: ACETAMINOPHEN 325 MG TAB PO PRN (20:16)
[2016-10-01 20:37] LABS: URINE APPEARANCE CLEAR (CLEAR); URINE BILIRUBIN NEG (NEG); URINE COLOR YELLOW; URINE NITRITE NEG (NEG); URINE SPECIFIC GRAVITY 1.011 (1.000-1.030); UROBILINOGEN NEG (NEG)
[2016-10-01 20:41] LABS: MANUAL MICROSCOPIC REQUIRED? NO; REVIEW REQ? NO
[2016-10-01] MEDS: ENOXAPARIN 40 MG/0.4 ML SYR SC SCH (21:00)
[2016-10-01] MEDS ORDERED: POTASSIUM CHLORIDE 10 MEQ TABCR PO STA (22:18)
--- NOTE | 2016-10-01 22:19 | History and Physical ---
History & Physical Date & Time of Service: Oct 01, 2016 at 22:13 Chief Complaint: Status Asthmaticus Primary Care Physician: RV. Patrick MD History of Present Illness Source: patient, family started about 4 days ago with worsening breathing, tight cough (some clear sputum but mostly saliva) and then things continued to worsen. no sick contacts but does work here in [facility] so certainly exposures routinely possible, no f/c/s. no diffuse myalgias trying to manage at home - breathing worsened - came to ER for further eval - epi (due to concern on allergic reaction) and nebs - still worsening - we were asked to admit. known to me from prior admissions Past Medical/Surgical History Medical Problems: (1) CALCULUS OF KIDNEY Status: Chronic (2) CALCULUS OF URETER Status: Chronic (3) Chest pain Status: Resolved (4) Dyspnea Status: Resolved (5) IRRITABLE BOWEL SYNDROME Status: Chronic (6) LUMBAGO Status: Chronic (7) PERITONEAL BRAFRHYVZ-TWHF-MI/INF Status: Chronic (8) TUBAL LIGATION STATUS Status: Resolved Family History No family history of cardiac disease Social History Smoking Status: Never Smoker Drug Use: none Marital Status: Occupational Status: employed Multi-Drug Resistant Organisms History of MDRO: No Allergies Coded Allergies: Penicillins (Verified Allergy, Intermediate, HIVES, VOMITING, 10/01/16) HIVES Floor Waxes/Polishes (Unverified Allergy, Unknown, shortness of breath, ) Home Medications Scheduled Loratadine (Claritin), 10 MG PO DAILY Scheduled PRN Albuterol Sulfate (Proventil Hfa), 2 PUFF PO Q4 PRN for Shortness of Breath Diphenhydramine Hcl (Benadryl Allergy), 25 MG PO DIRECTED PRN for ALLERGIC REACTION Epinephrine (Epinephrine), 0.3 MG IM UD PRN for ALLERGIC REACTION Ondansetron Hcl (Zofran), 4 MG PO TID PRN for Nausea Review of Systems ROS otherwise negative except for as above and below Constitutional: No chills, No fever, No sweats Respiratory: + cough, + dyspnea on exertion (first noticed her SOB as VASQUEZ - was trying to work out and things were worsening), + shortness of breath, + wheezing, No sputum Physical Exam Vital Signs Date Time Temp Pulse Resp B/P Pulse Ox O2 Delivery O2 Flow Rate FiO2 10/01/16 19:12 115 20 97 Room Air 10/01/16 18:54 36.7 111 16 119/69 97 Room Air 10/01/16 16:05 36.9 126 16 138/67 96 Room Air 10/01/16 15:15 116 20 110/56 94 10/01/16 14:04 106 20 93 Nasal Cannula 2.0 10/01/16 13:49 97 24 121/80 95 Nasal Cannula 2.0 10/01/16 12:33 94 18 115/84 100 Nasal Cannula 2.0 10/01/16 12:18 101 10/01/16 12:10 108 24 124/93 100 Nasal Cannula 2.0 10/01/16 11:59 100 Nasal Cannula 2.0 10/01/16 11:58 99 26 105/86 100 Nasal Cannula 2.0 10/01/16 11:25 36.9 110 20 134/92 98 Room Air 10/01/16 11:25 98 Room Air 10/01/16 11:25 98 Room Air General Appearance: + moderate distress (tachypnic, some conversational dyspnea ) Head: normocephalic, atraumatic Eyes: normal inspection, EOMI ENT: hearing grossly normal Neck: trachea midline Respiratory/Chest: no respiratory distress, no accessory muscle use, + decreased breath sounds, + wheezing (diffuse wheeze b/l no r/r good effort maybe mild accessory muscle use intercostals) Cardiovascular: regular rate, rhythm (to sl tachy), no edema, no gallop, no murmur Abdomen/GI: non tender, soft, no organomegaly Back: normal inspection (grossly) Extremities/Musculoskelatal: normal inspection, no calf tenderness, no pedal edema, normal range of motion Neurologic/Psych: 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 tested, no motor/sensory deficits (none grossly noted), alert, normal mood/affect, oriented x 3 Skin: normal color, warm/dry Diagnostics Laboratory Results Results Past 24 Hours Test 10/01/16 00:00 10/01/16 11:30 10/01/16 20:17 Range/Units Influenza Type A Antigen Neg for Influ A NEG Influenza Type B Antigen Neg for Influ B NEG White Blood Count 7.49 4.8-10.8 K/uL Red Blood Count 4.76 4.2-5.4 M/uL Hemoglobin 13.1 12.0-16.0 g/dL Hematocrit 38.5 37-47 % Mean Corpuscular Volume 80.9 80-100 fL Mean Corpuscular Hemoglobin 27.5 25-34 pg Mean Corpuscular Hemoglobin Concent 34.0 32-36 g/dl Platelet Count 285 130-400 K/uL Mean Platelet Volume 10.1 7.4-10.4 fL Neutrophils (%) (Auto) 49.9 % Lymphocytes (%) (Auto) 39.1 % Monocytes (%) (Auto) 5.5 % Eosinophils (%) (Auto) 5.1 % Basophils (%) (Auto) 0.3 % Neutrophils # (Auto) 3.74 1.4-6.5 K/uL Lymphocytes # (Auto) 2.93 1.2-3.4 K/uL Monocytes # (Auto) 0.41 0.11-0.59 K/uL Eosinophils # (Auto) 0.38 0-0.5 K/uL Basophils # (Auto) 0.02 0-0.2 K/uL RDW Standard Deviation 40.3 36.4-46.3 fL RDW Coefficient of Variation 13.5 11.5-14.5 % Immature Granulocyte % (Auto) 0.1 % Immature Granulocyte # (Auto) 0.01 0.00-0.02 K/uL Prothrombin Time 10.2 9.0-12.0 SECONDS Prothromb Time International Ratio 1.0 0.9-1.1 Activated Partial Thromboplast Time 25.9 21.0-31.0 SECONDS Partial Thromboplastin Ratio 1.0 Sodium Level 141 136-145 mmol/L Potassium Level 3.3 3.5-5.1 mmol/L Chloride Level 106 98-107 mmol/L Carbon Dioxide Level 26 21-32 mmol/L Anion Gap 9.0 3-11 mmol/L Blood Urea Nitrogen 8 7-18 mg/dl Creatinine 0.80 0.60-1.20 mg/dl Est Creatinine Clear Calc Drug Dose 108.8 ml/min Estimated GFR () 106.9 Estimated GFR (Non- 92.2 BUN/Creatinine Ratio 10.5 10-20 Random Glucose 99 70-99 mg/dl Calcium Level 9.3 8.5-10.1 mg/dl Total Bilirubin 0.4 0.2-1 mg/dl Aspartate Amino Transf (AST/SGOT) 15 15-37 U/L Alanine Aminotransferase (ALT/SGPT) 22 12-78 U/L Alkaline Phosphatase 61 45-117 U/L Troponin I < 0.015 0-0.045 ng/ml Total Protein 7.5 6.4-8.2 gm/dl Albumin 3.9 3.4-5.0 gm/dl Globulin 3.6 2.5-4.0 gm/dl Albumin/Globulin Ratio 1.1 0.9-2 Human Chorionic Gonadotropin, Qual NEG NEG Urine Color YELLOW Urine Appearance CLEAR CLEAR Urine pH 5.0 4.5-7.5 Urine Specific [place] 1.011 1.000-1.030 Urine Protein NEG NEG Urine Glucose (UA) 3+ NEG Urine Ketones 1+ NEG Urine Occult Blood NEG NEG Urine Nitrite NEG NEG Urine Bilirubin NEG NEG Urine Urobilinogen NEG NEG Urine Leukocyte Esterase NEG NEG CXR normal (no infiltrate) Impression Assessment and Plan asthma exacerbation/ status asthmaticus -recurrent -since wax/fumes exposure last year has had a much worse course w asthma than prior - wheezing and tight today -flu swab -zithromax to cover atypicals -steroids, duonebs q4hr, albuterol q2 prn -supportive care, follow closely -pulmonary consult given recurrent and refractory nature of her illness recently hypokalemia -replete, recheck DVT proph -lovenox Advanced Directives Existing Living Will: No Existing Power of Unemployment Examiner: No VTE Prophylaxis VTE Risk Assessment Done? Y/N: Yes Risk Level: Moderate
[2016-10-01] MEDS: METHYLPREDNISOLONE IV 80 MG in SYRINGE 0 ML IV SCH (23:22)
[2016-10-01] MEDS ORDERED: CHLORASEPTIC 1.4% SOLN 180 ML BTL MT PRN (23:30)
[2016-10-01 23:58] VITALS: BP 121/68; PULSE 102; TEMP 36.6; O2SAT 95
[2016-10-01 23:59] VITALS: PULSE 97; O2SAT 95
[2016-10-02] VITALS (14 sets, daily range): BP systolic 101–136; BP diastolic 62–95; PULSE 66–116; TEMP 36.5–37.1; O2SAT 0–99
[2016-10-02] MEDS ORDERED: GUAIFENESIN 600 MG TABCR PO ONE (00:19)
[2016-10-02] MEDS ORDERED: HYDROCODONE/HOMATROPINE SYRUP 5MG/1.5MG 5ML UDP PO STA (00:20)
[2016-10-02] MEDS: ALBUT/IPRATROP 3MG/0.5MG NEB 3 ML VIAL INH SCH ×6 (03:35→23:21)
[2016-10-02 05:56] LABS: BUN/CREATININE RATIO 8.5 (10-20); CALCIUM 8.8 mg/dl (8.5-10.1); CREATININE 0.84 mg/dl (0.60-1.20); POTASSIUM 3.8 mmol/L (3.5-5.1)
[2016-10-02] MEDS: LORATADINE 10 MG TAB PO SCH (08:45)
[2016-10-02] MEDS: GUAIFENESIN 600 MG TABCR PO SCH ×2 (08:45→20:34)
[2016-10-02] MEDS: METHYLPREDNISOLONE IV 80 MG in SYRINGE 0 ML IV SCH ×3 (08:46→23:32)
[2016-10-02] MEDS: AZITHROMYCIN IV 250 MG in DEXTROSE 5% 250ML 250 ML IV SCH (08:46)
[2016-10-02] MEDS: HYDROCODONE/HOMATROPINE SYRUP 5MG/1.5MG 5ML UDP PO PRN ×3 (10:53→23:32)
[2016-10-02] MEDS: ACETAMINOPHEN 325 MG TAB PO PRN ×3 (12:00→23:41)
--- NOTE | 2016-10-02 12:11 | Pulmonary Consultation ---
History General Date of Service: Oct 02, 2016. Stated Complaint: Status Asthmaticus HPI The patient is a 41 year old female who presents to [facility] with complaints of Status Asthmaticus. The patient's primary care provider is RV. Patrick MD. The patient is a 41 year old female who presents to the Emergency Room with complaints of worsening shortness of breath. She has a history of repeated episodes of angioedema in the past requiring epinephrine and severe asthma attacks requiring intubation in the past. Over the past week she notes progressive a non-productive cough associated especially with exercise. Yesterday while eating lunch she describes an aspiration event which appears to have exacerbated her cough with associated SOB. In the ED she was treated for possible angioedema but she denies voice changes associated with previous attacks. At this time she notes mucus production and chest tightness. She denies: cardiac chest pain, pleurisy or upper airway issues. Treatment: EG: #1 Decadron injection 10 mg IV 1 #2 Benadryl 25 mg IV 1 #3 DuoNeb nebulizer #4 Pepcid IV #5 epinephrine 0.3 mg IM 2 Hospital: #1 Claritin 10 mg by mouth daily #2 azithromycin/Z-Willian #3 600 mg by mouth twice a day #4 methylprednisolone 80 mg IV every 8 #5 Lovenox 40 mg subcutaneous daily #6 DuoNeb every 4 hours #7 epinephrine pen 0.3 mg when necessary Previous workup: Echocardiogram stress study 01/24/16 (indeterminate study secondary to chest pain ) LV: EF=55-60% o No stress induced segmental wall abnormalities noted RV: Within normal limits Stress parameters o Borderline positive stress EKG for ischemia. 1.[address] depression in the inferior leads Allergy consultation Dr. Lemon No definitive findings ENT Dr. Sean Menchaca Laryngoscopy performed within normal limits Historian: patient, EMS Review of Systems Constitutional: reports: no symptoms Eyes: reports: no symptoms ENT: reports: no symptoms Cardiovascular: reports: no symptoms Respiratory: reports: cough, other, shortness of breath Gastrointestinal: reports: no symptoms Genitourinary - Female: reports: no symptoms Musculoskeletal: reports: no symptoms Integumentary: reports: no symptoms Neurologic: reports: no symptoms Psychiatric: reports: no symptoms Endocrine: no symptoms Hematologic / Lymphatic: no symptoms Allergic / Immunologic: no symptoms Past Medical History Past Medical History: 1.Abnormal CT scan 2.Acid reflux 3.Ascites 4.Dyspnea 5.Elevated d-dimer 6.Epigastric pain 7.Hepatomegaly 8.Irritable bowel syndrome 9.Kidney stone 10.Loss of appetite 11.Lumbago 12.Plantar fasciitis, bilateral 13.Concussion Past Surgical History: 1. Ankle Repair 2. Appendectomy 3. Breast Surgery Enlargement Procedure 4. Lithotripsy 5. Septoplasty 6. Tubal Ligation Family History No family history of cardiac disease 1. Family history of cardiac disorder 2. Family history of diabetes mellitus Social History Employed Living situation Never smoker Social alcohol use Hx Tobacco Use In Past Year?: No Smoking Status: Never Smoker Marital status: Occupational Status: employed History of MDRO History of MDRO: No Allergies Coded Allergies: Penicillins (Verified Allergy, Intermediate, HIVES, VOMITING, 10/01/16) HIVES Floor Waxes/Polishes (Unverified Allergy, Unknown, shortness of breath, ) Current Medications Reported Home Medications Medications Dose Route/Sig Max Daily Dose Days Date Category Claritin (Loratadine) 10 Mg Tab 10 Mg PO DAILY 10/01/16 Reported Proventil Hfa (Albuterol Sulfate) 108 Mcg/Act Aer 2 Puff PO Q4 PRN 08/20/16 Reported Benadryl Allergy (Diphenhydramine Hcl) 25 Mg Tab 25 Mg PO DIRECTED PRN 08/20/16 Reported Zofran (Ondansetron HCl) 4 Mg Tab 4 Mg PO TID PRN 08/16/16 Rx Epinephrine 0.3 Mg/0.3 Ml Inj 0.3 Mg IM UD PRN 08/16/16 Reported Physical Physical Exam Vital Signs: Date Time Temp Pulse Resp B/P Pulse Ox O2 Delivery O2 Flow Rate FiO2 10/02/16 11:42 104 20 98 Room Air 10/02/16 10:49 36.7 101 16 114/73 97 Room Air 10/02/16 09:02 Room Air 10/02/16 08:00 0 Room Air 10/02/16 07:33 36.5 116 20 102/62 98 Room Air 10/02/16 06:53 73 20 97 Room Air 10/02/16 05:13 102 20 93 Room Air 10/02/16 04:00 Room Air 10/02/16 03:57 36.8 84 20 114/72 95 Room Air 10/02/16 00:00 Room Air 2.0 10/01/16 23:59 97 20 95 Room Air 10/01/16 23:58 36.6 102 20 121/68 95 Room Air 10/01/16 20:00 Room Air 10/01/16 19:12 115 20 97 Room Air 10/01/16 18:54 36.7 111 16 119/69 97 Room Air 10/01/16 16:05 36.9 126 16 138/67 96 Room Air 10/01/16 15:15 116 20 110/56 94 10/01/16 14:04 106 20 93 Nasal Cannula 2.0 10/01/16 13:49 97 24 121/80 95 Nasal Cannula 2.0 10/01/16 12:33 94 18 115/84 100 Nasal Cannula 2.0 10/01/16 12:18 101 10/01/16 12:10 108 24 124/93 100 Nasal Cannula 2.0 10/01/16 11:59 100 Nasal Cannula 2.0 10/01/16 11:58 99 26 105/86 100 Nasal Cannula 2.0 General Appearance: mild distress Head: NORMOCEPHALIC, ATRAUMATIC Eyes: PERRLA, NO DISCHARGE, EOMI, SCLERAE NORMAL ENT: NORMAL EAR EXAM, NORMAL NASAL EXAM, NORMAL MOUTH EXAM, NORMAL THROAT EXAM , other Neck: NORMAL RANGE OF MOTION, NO TENDERNESS, other (minimal exp wheezing in the throat) Respiratory: CLEAR TO AUSCULTATION Cardiovasular: REGULAR RATE/RHYTHM, NORMAL S1S2, NO M/G/R, NO MURMUR, NO GALLOP , NO JVD Abdomen: NON TENDER, NORMAL BOWEL SOUNDS, NO REBOUND, NO MASSES, NO GUARDING, NO ORGANOMEGALY, NORMAL RECTAL EXAM, NO HEMORRHOIDS Genitourinary - Female: EXTERNAL GENITALIA NORMAL Back: NORMAL INSPECTION, NO MIDLINE TENDERNESS, NO CVA TENDERNESS, NO PARAVERTEBRAL TTP Upper Extremities: NO EDEMA, NO DEFORMITY, NORMAL ROM Lower Extremities: NO EDEMA, NO DEFORMITY, NORMAL ROM Pulses: carotid (R) (2+), carotid (L) (2+), dorsalis pedis (R) (2+), dorsalis pedis (L) (2+) Neuro: ALERT, ORIENTED x 3, NORMAL MOTOR EXAM, NORMAL SENSATION, NORMAL CEREBELLAR EXAM, NORMAL SPEECH Reflexes: biceps (R) (2+), bicpes (L) (2+), achilles (R) (2+), achilles (L) (2+ ) Babinski Testing: right (downgoing), left (downgoing) Psychiatric: NORMAL AFFECT, NO SUICIDAL IDEATION, CONTRACTS FOR SAFETY Diagnostics Labs Results Past 24 Hours Test 10/01/16 20:17 10/02/16 05:05 10/02/16 09:20 Range/Units Urine Color YELLOW Urine Appearance CLEAR CLEAR Urine pH 5.0 4.5-7.5 Urine Specific [place] 1.011 1.000-1.030 Urine Protein NEG NEG Urine Glucose (UA) 3+ NEG Urine Ketones 1+ NEG Urine Occult Blood NEG NEG Urine Nitrite NEG NEG Urine Bilirubin NEG NEG Urine Urobilinogen NEG NEG Urine Leukocyte Esterase NEG NEG Sodium Level 142 136-145 mmol/L Potassium Level 3.8 3.5-5.1 mmol/L Chloride Level 110 98-107 mmol/L Carbon Dioxide Level 18 21-32 mmol/L Anion Gap 14.0 3-11 mmol/L Blood Urea Nitrogen 7 7-18 mg/dl Creatinine 0.84 0.60-1.20 mg/dl Est Creatinine Clear Calc Drug Dose 104.6 ml/min Estimated GFR () 100.8 Estimated GFR (Non- 86.9 BUN/Creatinine Ratio 8.5 10-20 Random Glucose 177 70-99 mg/dl Calcium Level 8.8 8.5-10.1 mg/dl Erythrocyte Sedimentation Rate 10 0-21 mm/hr C-Reactive Protein < 0.29 0-0.29 mg/dl Procalcitonin < 0.05 0-0.5 ng/mL Diagnostic Radiology Chest x-ray: Expiratory film no acute intra-thoracic process noted EKG Interpretation: NORMAL EKG Impression Assessment and Plan 41y/o female with acute on chronic respiratory insufficiency: 1) Acute Respiratory Insufficiency: Most likely associated with reactive airway disease syndrome(RAD) exacerbated by aspiration event. I agree with current medical regimen but will change her steroids to prednisone 60md/qd. Suggest we monitor her Peak Flow and when stable d/c with pulm clinic f/u. Patient will need bronchoscopy in the future but with repeat episodes of angioedema and upper airway compromise I would like her to see an drilling fluids specialist at [facility] prior to the bronchoscopy. 2) Angioedema: Patient has clinical history similar to episodes of angioedema. Patient's recent blood work shows normal C4 and C esterase inhibitor levels. These are relevant in hereditary and acquired forms of angioedema. 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 It should be noted that angioedema is a clinical diagnosis and can be very difficult to make. At this time I have suggested the patient go to [facility] and/or [facility] for an allergy evaluation.
[2016-10-02] MEDS ORDERED: RACEPINEPHRINE 2.25% NEBU SOLN 0.5 ML VIAL INH ONE (15:30)
--- NOTE | 2016-10-02 15:57 | Progress Note ---
Subjective Date of Service: Oct 02, 2016. Subjective Pt evaluation today including: conversation w/ patient, physical exam, lab review, review of studies, conversation w/ [employer] consultant, review of inpatient medication list Pain: sore throat PO Intake: adequate, limited by sore throat Voiding: no voiding problems patient was doing okay this morning, main complaint was sore throat discussed with Dr. Lara, patient has two issues, reactive airway disease but also angioedema in the afternoon the patient's voice was more raspy, more stridor on exam she did not feel like airway was closing in like it had in the past, she just had some difficulty swallowing still with chest tightness Problem List Medical Problems: (1) Allergic reaction Status: Acute (2) Anaphylaxis Status: Acute (3) Anterior chest wall pain Status: Acute (4) Breathing difficulty Status: Acute (5) Bronchospasm Status: Acute (6) Bronchospasm Status: Acute (7) Bronchospasm Status: Acute (8) Chest pain Status: Acute (9) Laryngeal edema Status: Acute (10) Pleurisy Status: Acute (11) Respiratory distress Status: Acute (12) Respiratory distress Status: Acute (13) Stridor Status: Acute Review of Systems ENT: + sore throat Respiratory: + cough, + dyspnea on exertion, + shortness of breath Cardiac: + chest pain (tightness) All Other Systems: Reviewed and Negative Medications Current Inpatient Medications Medications (Trade) Dose Ordered Sig/Hussein Route Start Time Stop Time Status Last Admin Dose Admin Enoxaparin Sodium (Lovenox Inj) 40 mg QPM SC 10/01/16 21:00 10/31/16 20:59 Acetaminophen (Tylenol Tab) 650 mg Q4H PRN PO 10/01/16 15:00 10/31/16 14:59 10/02/16 12:00 650 MG Al Hydrox/Mg Hydrox/Simethicone (Maalox Max Susp) 15 ml Q4H PRN PO 10/01/16 15:00 10/31/16 14:59 Magnesium Hydroxide (Milk Of Magnesia Susp) 30 ml Q12H PRN PO 10/01/16 15:00 10/31/16 14:59 Ondansetron HCl (Zofran Inj) 4 mg Q6H PRN IV 10/01/16 15:00 10/31/16 14:59 Albuterol (Ventolin Hfa Inhaler) 1 puffs Q4 PRN INH 10/01/16 15:00 10/31/16 14:59 Epinephrine (Epipen) 0.3 mg UD PRN IM 10/01/16 15:00 10/31/16 14:59 Loratadine 10 mg 10 mg DAILY PO 10/02/16 09:00 11/01/16 08:59 10/02/16 08:45 10 MG Methylprednisolone Sodium Succinate/ Syringe (Solu-Medrol IV/ Syringe) 1.28 ml @ 1.5 mls/min Q8H IV 10/02/16 00:00 11/01/16 00:00 10/02/16 08:46 1.5 MLS/MIN Albuterol/ Ipratropium (Duoneb) 3 ml Q4R INH 10/01/16 16:00 10/31/16 15:59 10/02/16 15:36 3 ML Albuterol Sulfate 2.5 mg 2.5 mg Q4 PRN INH 10/01/16 15:00 10/31/16 14:59 Azithromycin/ Dextrose (Zithromax IV/D5 250ml) 252.5 ml @ 125 mls/hr DAILY@0900 IV 10/02/16 09:00 10/08/16 08:59 10/02/16 08:46 125 MLS/HR Menthol (Nice Zohaib) 1 zohaib PRN PRN PO 10/01/16 16:45 10/31/16 16:44 10/01/16 16:44 1 ZOHAIB Phenol (Chloraseptic 1.4% [place]) 2 sprays Q4H PRN MT 10/01/16 23:30 10/31/16 23:29 Guaifenesin (Mucinex Contr Rel Tab) 600 mg Q12 PO 10/02/16 09:00 11/01/16 08:59 10/02/16 08:45 600 MG Hydrocodone Bit/ Homatropine Methylb (Hycodan Syrup) 5 ml Q6 PRN PO 10/02/16 09:15 10/16/16 09:14 10/02/16 10:53 5 ML Objective Vital Signs Date Time Temp Pulse Resp B/P Pulse Ox O2 Delivery O2 Flow Rate FiO2 10/02/16 15:38 36.6 110 18 109/66 98 10/02/16 15:36 104 20 97 Room Air 10/02/16 12:00 0 Room Air 10/02/16 11:42 104 20 98 Room Air 10/02/16 10:49 36.7 101 16 114/73 97 Room Air 10/02/16 09:02 Room Air 10/02/16 08:00 0 Room Air 10/02/16 07:33 36.5 116 20 102/62 98 Room Air 10/02/16 06:53 73 20 97 Room Air 10/02/16 05:13 102 20 93 Room Air 10/02/16 04:00 Room Air 10/02/16 03:57 36.8 84 20 114/72 95 Room Air 10/02/16 00:00 Room Air 2.0 10/01/16 23:59 97 20 95 Room Air 10/01/16 23:58 36.6 102 20 121/68 95 Room Air 10/01/16 20:00 Room Air 10/01/16 19:12 115 20 97 Room Air 10/01/16 18:54 36.7 111 16 119/69 97 Room Air 10/01/16 16:05 36.9 126 16 138/67 96 Room Air Physical Exam General Appearance: WD/WN, no apparent distress Eyes: normal inspection, EOMI, sclerae normal ENT: normal ENT inspection, hearing grossly normal, pharynx normal (no erythema , no exudate) Neck: supple, no adenopathy, no JVD, trachea midline, + pertinent finding ( expiratory stridor) Respiratory/Chest: chest non-tender, lungs clear, normal breath sounds, no respiratory distress, no accessory muscle use Cardiovascular: regular rate, rhythm, no edema, no gallop, no JVD, no murmur Abdomen: normal bowel sounds, non tender, soft, no organomegaly Extremities: normal range of motion, non-tender, normal inspection, no pedal edema, no calf tenderness 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, no motor/sensory deficits, alert, normal mood/affect, oriented x 3 Skin: normal color, warm/dry, no rash Lymphatic: no adenopathy Laboratory Results Last 24 Hours Test 10/01/16 20:17 10/02/16 05:05 10/02/16 09:20 Urine Color YELLOW Urine Appearance CLEAR Urine pH 5.0 Urine Specific [place] 1.011 Urine Protein NEG Urine Glucose (UA) 3+ Urine Ketones 1+ Urine Occult Blood NEG Urine Nitrite NEG Urine Bilirubin NEG Urine Urobilinogen NEG Urine Leukocyte Esterase NEG Sodium Level 142 mmol/L Potassium Level 3.8 mmol/L Chloride Level 110 mmol/L Carbon Dioxide Level 18 mmol/L Anion Gap 14.0 mmol/L Blood Urea Nitrogen 7 mg/dl Creatinine 0.84 mg/dl Est Creatinine Clear Calc Drug Dose 104.6 ml/min Estimated GFR () 100.8 Estimated GFR (Non- 86.9 BUN/Creatinine Ratio 8.5 Random Glucose 177 mg/dl Calcium Level 8.8 mg/dl Erythrocyte Sedimentation Rate 10 mm/hr C-Reactive Protein < 0.29 mg/dl Procalcitonin < 0.05 ng/mL Assessment and Plan 41 yo female with history of angioedema, has required intubation in the past, also with reactive airway disease, here with chest tightness, dyspnea, cough and sore throat that started yesterday after possible aspiration event - Angioedema: lips and tongue normal, can visualize entire posterior oropharynx however, she has stridor on exam continue Prednisone, anti-histamines, will give a dose of Racemic epi since it has helped in the past - Reactive airway disease: appreciate pulm consult peak flows, utilize nebulizers, Azithromycin for atypical coverage ideally would need bronchoscopy but Dr. Lara wants patient to see swimming coach or instructor at [place] prior to this hypokalemia: resolved keep on tele due to stridor, tachycardia DVT proph -lovenox
[2016-10-02] MEDS: ENOXAPARIN 40 MG/0.4 ML SYR SC SCH (20:34)
[2016-10-03] VITALS (14 sets, daily range): BP systolic 104–125; BP diastolic 63–77; PULSE 87–115; TEMP 36.5–36.9; O2SAT 0–98
[2016-10-03] MEDS: ALBUT/IPRATROP 3MG/0.5MG NEB 3 ML VIAL INH SCH ×5 (03:57→20:02)
[2016-10-03] MEDS: HYDROCODONE/HOMATROPINE SYRUP 5MG/1.5MG 5ML UDP PO PRN ×3 (05:40→20:11)
[2016-10-03] MEDS: ACETAMINOPHEN 325 MG TAB PO PRN ×4 (05:41→20:12)
[2016-10-03] MEDS: METHYLPREDNISOLONE IV 80 MG in SYRINGE 0 ML IV SCH ×3 (08:12→23:46)
[2016-10-03] MEDS: GUAIFENESIN 600 MG TABCR PO SCH ×2 (08:13→21:31)
[2016-10-03] MEDS: LORATADINE 10 MG TAB PO SCH (08:13)
[2016-10-03] MEDS: AZITHROMYCIN IV 250 MG in DEXTROSE 5% 250ML 250 ML IV SCH (08:20)
--- NOTE | 2016-10-03 16:20 | Progress Note ---
Subjective Date of Service: Oct 03, 2016. Subjective Pt evaluation today including: conversation w/ patient, physical exam, conversation w/ industrial rehabilitation consultant, review of inpatient medication list Pain: sore throat PO Intake: adequate Voiding: no voiding problems breathing better, throat still very sore but feels less narrow, breathing easier still with cough, no hypoxia she is frustrated that not significantly better Problem List Medical Problems: (1) Allergic reaction Status: Acute (2) Anaphylaxis Status: Acute (3) Anterior chest wall pain Status: Acute (4) Breathing difficulty Status: Acute (5) Bronchospasm Status: Acute (6) Bronchospasm Status: Acute (7) Bronchospasm Status: Acute (8) Chest pain Status: Acute (9) Laryngeal edema Status: Acute (10) Pleurisy Status: Acute (11) Respiratory distress Status: Acute (12) Respiratory distress Status: Acute (13) Stridor Status: Acute Review of Systems ENT: + sore throat Respiratory: + cough, + dyspnea on exertion All Other Systems: Reviewed and Negative Medications Current Inpatient Medications Medications (Trade) Dose Ordered Sig/Hussein Route Start Time Stop Time Status Last Admin Dose Admin Enoxaparin Sodium (Lovenox Inj) 40 mg QPM SC 10/01/16 21:00 10/31/16 20:59 Acetaminophen (Tylenol Tab) 650 mg Q4H PRN PO 10/01/16 15:00 10/31/16 14:59 10/03/16 14:46 650 MG Al Hydrox/Mg Hydrox/Simethicone (Maalox Max Susp) 15 ml Q4H PRN PO 10/01/16 15:00 10/31/16 14:59 Magnesium Hydroxide (Milk Of Magnesia Susp) 30 ml Q12H PRN PO 10/01/16 15:00 10/31/16 14:59 Ondansetron HCl (Zofran Inj) 4 mg Q6H PRN IV 10/01/16 15:00 10/31/16 14:59 Albuterol (Ventolin Hfa Inhaler) 1 puffs Q4 PRN INH 10/01/16 15:00 10/31/16 14:59 Epinephrine (Epipen) 0.3 mg UD PRN IM 10/01/16 15:00 10/31/16 14:59 Loratadine 10 mg 10 mg DAILY PO 10/02/16 09:00 11/01/16 08:59 10/03/16 08:13 10 MG Methylprednisolone Sodium Succinate/ Syringe (Solu-Medrol IV/ Syringe) 1.28 ml @ 1.5 mls/min Q8H IV 10/02/16 00:00 11/01/16 00:00 10/03/16 16:12 1.5 MLS/MIN Albuterol/ Ipratropium (Duoneb) 3 ml Q4R INH 10/01/16 16:00 10/31/16 15:59 10/03/16 11:13 3 ML Albuterol Sulfate 2.5 mg 2.5 mg Q4 PRN INH 10/01/16 15:00 10/31/16 14:59 Azithromycin/ Dextrose (Zithromax IV/D5 250ml) 252.5 ml @ 125 mls/hr DAILY@0900 IV 10/02/16 09:00 10/08/16 08:59 10/03/16 08:20 125 MLS/HR Menthol (Nice Zohaib) 1 zohaib PRN PRN PO 10/01/16 16:45 10/31/16 16:44 10/01/16 16:44 1 ZOHAIB Phenol (Chloraseptic 1.4% [place]) 2 sprays Q4H PRN MT 10/01/16 23:30 10/31/16 23:29 Guaifenesin (Mucinex Contr Rel Tab) 600 mg Q12 PO 10/02/16 09:00 11/01/16 08:59 10/03/16 08:13 600 MG Hydrocodone Bit/ Homatropine Methylb (Hycodan Syrup) 5 ml Q6 PRN PO 10/02/16 09:15 10/16/16 09:14 10/03/16 13:09 5 ML Objective Vital Signs Date Time Temp Pulse Resp B/P Pulse Ox O2 Delivery O2 Flow Rate FiO2 10/03/16 15:54 36.7 87 18 122/72 95 Room Air 10/03/16 13:19 Room Air 10/03/16 12:51 36.9 98 18 123/77 95 10/03/16 12:29 36.8 99 18 0 2.0 10/03/16 12:00 0 Room Air 10/03/16 11:39 36.8 99 18 112/73 98 Room Air 10/03/16 11:13 98 12 96 Room Air 10/03/16 08:00 0 Room Air 10/03/16 07:58 36.5 103 18 110/71 95 Room Air 10/03/16 07:17 112 20 97 Room Air 10/03/16 03:57 115 20 96 Room Air 10/03/16 03:30 Room Air 10/03/16 03:30 36.7 99 22 104/63 93 Room Air 10/02/16 23:30 Room Air 10/02/16 23:28 37.1 96 20 101/65 98 Room Air 10/02/16 23:21 85 20 96 Room Air 10/02/16 20:18 108 20 96 Room Air 10/02/16 20:00 Room Air 10/02/16 19:20 36.8 108 18 117/95 99 Physical Exam General Appearance: WD/WN, no apparent distress Eyes: normal inspection, EOMI, sclerae normal ENT: normal ENT inspection, hearing grossly normal, pharynx normal (posterior oropharynx with normal color, normal tonsils) Neck: supple, no adenopathy, no JVD, trachea midline, + pertinent finding (no stridor today which is improvement) Respiratory/Chest: chest non-tender, no respiratory distress, no accessory muscle use, + wheezing (end exhalation, less than yesterday) Cardiovascular: regular rate, rhythm, no edema, no gallop, no JVD, no murmur Abdomen: normal bowel sounds, non tender, soft, no organomegaly Extremities: normal range of motion, non-tender, normal inspection, no pedal edema, no calf tenderness, pelvis stable Neurologic/Psychiatric: learning designer II-XII nml as tested, no motor/sensory deficits, alert, normal mood/affect, oriented x 3 Skin: normal color, warm/dry, no rash Lymphatic: no adenopathy Laboratory Results Last 24 Hours Test 10/03/16 05:15 Assessment and Plan 41 yo female with history of angioedema, has required intubation in the past, also with reactive airway disease, here with chest tightness, dyspnea, cough and sore throat that started yesterday after possible aspiration event - Angioedema: lips and tongue normal, can visualize entire posterior oropharynx still, no change since yesterday no stridor today which is improvement continue Prednisone, anti-histamines will ask for ENT to evaluate tomorrow since her throat is still so sore and nothing can be seen on my exam pulmonology would like visualization with laryngoscope if possible - Reactive airway disease: appreciate pulm consult peak flows, utilize nebulizers, Azithromycin for atypical coverage ideally would need bronchoscopy but Dr. Lara wants patient to see news wire photo operator at [place] prior to this lungs clearing up, less wheezing and only at end exhalation hypokalemia: resolved transfer to medical today DVT proph -lovenox
[2016-10-03] MEDS: ENOXAPARIN 40 MG/0.4 ML SYR SC SCH (21:00)
[2016-10-04] VITALS (9 sets, daily range): BP systolic 116–122; BP diastolic 75–76; PULSE 63–99; TEMP 36.6–36.7; O2SAT 94–100
[2016-10-04] MEDS: ALBUT/IPRATROP 3MG/0.5MG NEB 3 ML VIAL INH SCH ×7 (00:15→23:55)
[2016-10-04] MEDS: HYDROCODONE/HOMATROPINE SYRUP 5MG/1.5MG 5ML UDP PO PRN ×4 (03:10→21:04)
[2016-10-04] MEDS: ACETAMINOPHEN 325 MG TAB PO PRN ×4 (03:11→21:06)
[2016-10-04] MEDS: GUAIFENESIN 600 MG TABCR PO SCH ×2 (07:48→21:04)
[2016-10-04] MEDS: METHYLPREDNISOLONE IV 80 MG in SYRINGE 0 ML IV SCH ×2 (07:48→15:17)
[2016-10-04] MEDS: LORATADINE 10 MG TAB PO SCH (07:48)
[2016-10-04] MEDS: AZITHROMYCIN IV 250 MG in DEXTROSE 5% 250ML 250 ML IV SCH (09:26)
--- NOTE | 2016-10-04 13:55 | ENT CONSULTATION ---
DATE OF CONSULTATION: 10/04/2016 I have been asked by Dr. Viral Levy to evaluate this patient with severe sore throat. HISTORY OF PRESENT ILLNESS: The patient is a 41-year-old female who I have seen in the past in my office on 05/07/2019 for evaluation of hoarseness after being intubated for 3 days and hospitalized for 8 days after a presumed chemical exposure to floor wax. At that time she had only mild hoarseness and improved over time and therefore did not follow up with me. Since that time she has had several illnesses and several hospital admissions and was recently admitted on 10/01/2016 with shortness of breath and chest fullness. Since being admitted her shortness of breath is somewhat improved, but she has developed a severe sore throat as well as hoarseness. This has progressed over the past 2 days. She states that she was choking on lettuce and is wondering if lettuce is lodged in her airways or her esophagus. However, she is able to eat and drink without any difficulty currently and is tolerating her secretions. She does have a history of recurrent angioedema requiring epinephrine and is supposed to get allergy testing at [facility] on October 17. She had normal C4 and C1 esterase inhibitor levels ruling out hereditary angioedema. Since she was hospitalized on the she has been afebrile and her vital signs are stable. She currently is on room air. ALLERGIES: PENICILLIN AND PRESUMABLY FLOOR WAX AND UKRAINIAN. CURRENT MEDICATIONS: Hydrocodone, loratadine, azithromycin, Guaifenesin, methylprednisolone, Chloraseptic spray, Lovenox, menthol lozenges, DuoNeb, Tylenol p.r.n., Maalox p.r.n., Milk of magnesia p.r.n., Zofran p.r.n., albuterol p.r.n., epinephrine p.r.n. PAST MEDICAL HISTORY: 1. As above. 2. Kidney stones. 3. Reactive airway disease/asthma. 4. Irritable bowel syndrome. 5. Recurrent angioedema. PAST SURGICAL HISTORY: 1. Status post ankle surgery. 2. Status post appendectomy. 3. Status post breast augmentation. 4. Status post lithotripsy. 5. Status post tubal ligation. 6. Status post septoplasty and turbinate reduction by Dr. Sun. FAMILY HISTORY: Noncontributory. No hereditary angioedema. 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 She is . She lives with her family. She denies tobacco, alcohol or illicit drug use. REVIEW OF SYSTEMS: The patient currently has a severe sore throat in the hypopharyngeal airway as well as hoarseness. She has cough productive of yellow sputum and some mild shortness of breath. She denies any sinus pain or pressure. She denies any decrease sense of smell. She does perhaps have postnasal drip. She denies any lightheadedness, dizziness or chest pain. PHYSICAL EXAMINATION: GENERAL: This is a middle-aged white female in no acute distress with no stridor but who does have moderately severe breathy hoarseness. External auditory canals and tympanic membranes are clear bilaterally. Nasal examination reveals a septal perforation anteriorly as well as dry mucous membranes and bloody crusting. There is some purulence within the left greater than right nasal cavity. Oral cavity and oropharyngeal examination reveals no mucosal lesions or masses. There is no evidence of oral thrush. NECK: Reveals no lymphadenopathy, thyroid nodularity or masses. After administration of topical lidocaine and Afrin to the left nasal cavity, flexible nasopharyngeal laryngoscopy was performed revealing severe thickened mucoid yellowish secretions within the nasal cavity and coating the nasopharynx. Within the oropharynx, hypopharynx and larynx, there is mild inflammation but no evidence of tumor, mass or fungal infection. There is normal bilateral true vocal cord mobility to the midline. Interestingly, periodically the patient's voice would be normal while the scope was in place. LABORATORY EXAMINATION: Reveals a normal white blood cell count on 10/01/2016. She has a normal eosinophil count. Chest x-ray from 10/01/2016 is unremarkable. IMPRESSION AND RECOMMENDATIONS: This 41-year-old female with history of recurrent angioedema and allergic attacks who currently has severe sore throat and hoarseness. Her examination is consistent with possible sinusitis and postnasal drip leading to sore throat. She currently is on azithromycin and methylprednisolone, which should cover most sinonasal pathogens. Supportive care with bronchodilation is also recommended. She does have an appointment with [facility] for allergy testing for her suspected chemical exposure and I would highly recommend that she has that consultation. There is no evidence of a foreign body within her hypopharynx or larynx. If you are still clinically conserved, one could entertain the thought of bronchoscopy and/or EGD to further evaluate this patient's complaints. Since there is no surgical issue, I will sign off on this consultation, but if you need any further assistance, please do not hesitate to contact me. MARITZAD
--- NOTE | 2016-10-04 15:43 | Progress Note ---
Subjective Date of Service: Oct 04, 2016. Subjective Pt evaluation today including: conversation w/ patient, conversation w/ family , physical exam, review of studies, conversation w/ packaging sales consultant, review of inpatient medication list Pain: sore throat PO Intake: adequate Voiding: no voiding problems patient more hoarse today, throat still sore, but does not feel like throat is closing feels like she has a lot of congestion in chest, wishes she could just cough it up reviewed ENT consultation, laryngoscopy showed sinusitis, normal vocal cords, no inflammation lower in the throat to explain pain just finished performing a PFT with respiratory, will review results later overall, no considerable improvement since admission, patient naturally frustrated Problem List Medical Problems: (1) Allergic reaction Status: Acute (2) Anaphylaxis Status: Acute (3) Anterior chest wall pain Status: Acute (4) Breathing difficulty Status: Acute (5) Bronchospasm Status: Acute (6) Bronchospasm Status: Acute (7) Bronchospasm Status: Acute (8) Chest pain Status: Acute (9) Laryngeal edema Status: Acute (10) Pleurisy Status: Acute (11) Respiratory distress Status: Acute (12) Respiratory distress Status: Acute (13) Stridor Status: Acute Review of Systems ENT: + sore throat Respiratory: + cough, + shortness of breath All Other Systems: Reviewed and Negative Medications Current Inpatient Medications Medications (Trade) Dose Ordered Sig/Hussein Route Start Time Stop Time Status Last Admin Dose Admin Enoxaparin Sodium (Lovenox Inj) 40 mg QPM SC 10/01/16 21:00 10/31/16 20:59 Acetaminophen (Tylenol Tab) 650 mg Q4H PRN PO 10/01/16 15:00 10/31/16 14:59 10/04/16 15:17 650 MG Al Hydrox/Mg Hydrox/Simethicone (Maalox Max Susp) 15 ml Q4H PRN PO 10/01/16 15:00 10/31/16 14:59 Magnesium Hydroxide (Milk Of Magnesia Susp) 30 ml Q12H PRN PO 10/01/16 15:00 10/31/16 14:59 Ondansetron HCl (Zofran Inj) 4 mg Q6H PRN IV 10/01/16 15:00 10/31/16 14:59 Albuterol (Ventolin Hfa Inhaler) 1 puffs Q4 PRN INH 10/01/16 15:00 10/31/16 14:59 Epinephrine (Epipen) 0.3 mg UD PRN IM 10/01/16 15:00 10/31/16 14:59 Loratadine 10 mg 10 mg DAILY PO 10/02/16 09:00 11/01/16 08:59 10/04/16 07:48 10 MG Methylprednisolone Sodium Succinate/ Syringe (Solu-Medrol IV/ Syringe) 1.28 ml @ 1.5 mls/min Q8H IV 10/02/16 00:00 11/01/16 00:00 10/04/16 15:17 1.5 MLS/MIN Albuterol/ Ipratropium (Duoneb) 3 ml Q4R INH 10/01/16 16:00 10/31/16 15:59 10/04/16 15:19 3 ML Albuterol Sulfate 2.5 mg 2.5 mg Q4 PRN INH 10/01/16 15:00 10/31/16 14:59 Azithromycin/ Dextrose (Zithromax IV/D5 250ml) 252.5 ml @ 125 mls/hr DAILY@0900 IV 10/02/16 09:00 10/08/16 08:59 10/04/16 09:26 125 MLS/HR Menthol (Nice Zohaib) 1 zohaib PRN PRN PO 10/01/16 16:45 10/31/16 16:44 10/01/16 16:44 1 ZOHAIB Phenol (Chloraseptic 1.4% [place]) 2 sprays Q4H PRN MT 10/01/16 23:30 10/31/16 23:29 Guaifenesin (Mucinex Contr Rel Tab) 600 mg Q12 PO 10/02/16 09:00 11/01/16 08:59 10/04/16 07:48 600 MG Hydrocodone Bit/ Homatropine Methylb (Hycodan Syrup) 5 ml Q6 PRN PO 10/02/16 09:15 10/16/16 09:14 10/04/16 15:16 5 ML Objective Vital Signs Date Time Temp Pulse Resp B/P Pulse Ox O2 Delivery O2 Flow Rate FiO2 10/04/16 15:20 86 16 97 Room Air 10/04/16 15:16 36.6 95 18 116/76 94 10/04/16 11:38 81 16 98 Room Air 10/04/16 08:00 Room Air 10/04/16 07:53 84 16 98 Room Air 10/04/16 07:49 36.7 99 18 122/75 100 10/04/16 03:14 83 16 97 Room Air 10/04/16 00:15 87 16 94 Room Air 10/03/16 23:44 36.7 90 18 125/77 96 Room Air 10/03/16 20:02 96 16 96 Room Air 10/03/16 20:00 Room Air 10/03/16 16:26 89 16 97 Room Air 10/03/16 15:54 36.7 87 18 122/72 95 Room Air Physical Exam General Appearance: WD/WN, no apparent distress Eyes: normal inspection, EOMI, sclerae normal ENT: normal ENT inspection, hearing grossly normal, pharynx normal, + pertinent finding (no sinus pain or tenderness) Neck: supple, no adenopathy, no JVD, trachea midline Respiratory/Chest: chest non-tender, normal breath sounds, no respiratory distress, no accessory muscle use, + wheezing (faint, end expiratory, no stridor today) Cardiovascular: regular rate, rhythm, no edema, no gallop, no JVD, no murmur Abdomen: normal bowel sounds, non tender, soft, no organomegaly Extremities: normal range of motion, non-tender, normal inspection, no pedal edema, no calf tenderness Neurologic/Psychiatric: asset analyst II-XII nml as tested, no motor/sensory deficits, alert, normal mood/affect, oriented x 3 Skin: normal color, warm/dry, no rash Lymphatic: no adenopathy Assessment and Plan 41 yo female with history of angioedema, has required intubation in the past, also with reactive airway disease, here with chest tightness, dyspnea, cough and sore throat that started yesterday after possible aspiration event - Angioedema: lips and tongue normal, can visualize entire posterior oropharynx still, no change since yesterday no stridor today which is improvement but still with what is described as severe sore throat continue Prednisone, anti-histamines ENT evaluation: normal oropharynx, normal cords, no inflammation visualized in throat or swelling had evidence of sinusitis - Reactive airway disease: appreciate pulm consult peak flows, utilize nebulizers, Azithromycin for atypical coverage ideally would need bronchoscopy but Dr. Lara wants patient to see surface to air weapons officer at [place] prior to this lungs clearing up, less wheezing and only at end exhalation overall little improvement since admission, flow loop performed today, results pending - Sinusitis: no improvement on Azithromycin, could consider alternative, she has PCN allergy so would avoid PCN, cephalosporins will add Levaquin today interestingly, no sinus symptoms despite how bad it looked on direct scope exam no fever, WBC normal hypokalemia: resolved DVT proph -lovenox
[2016-10-04] MEDS ORDERED: OPTIRAY 320 IV PRN (16:00)
[2016-10-04] MEDS: LEVOFLOXACIN / D5W 750 MG in PREMIXED IN D5W 150 ML IV SCH (16:28)
--- NOTE | 2016-10-04 16:34 | DIAGNOSTIC IMAGING REPORT ---
CT OF THE SINUSES WITH CONTRAST. CT DOSE: 559.15 mGy.cm CLINICAL HISTORY: Sinusitis. Status asthmaticus. TECHNIQUE: Axial images of the sinuses were obtained following intravenous injection of 92 cc of Optiray 320 IV. Coronal reformats were viewed. COMPARISON STUDY: Head CT April 20, 2016. FINDINGS: Visualized portions of the intracranial contents are unremarkable. Mastoid air cells are clear. There is no fluid within the middle ears. Cribriform plate is intact. The orbits are unremarkable. There is no mass within the nasal cavity or the sinuses. The major drainage pathways of the sinuses are patent. There is minimal mucosal thickening of the ethmoid sinuses. There are no air-fluid levels. There is no bony destruction. Note is made of lalo bullosa of the bilateral middle turbinates. There is mild rightward deviation of the nasal septum. IMPRESSION: 1. Minimal mucosal thickening of the sinuses. No evidence of acute sinusitis. Patent major drainage pathways. 2. Lalo bullosa of the bilateral middle turbinates. 3. Mild S-shaped deviation of the nasal septum. Electronically signed by: Jacky Galeana M.D. 10/04/2016 4:32 PM Dictated Date/Time: 10/04/2016 4:28 PM
--- NOTE | 2016-10-04 17:13 | Pulmonology Progress Note ---
Pulmonary Progress Note Date of Service Oct 04, 2016. Attending Cam Lara Subjective Patient still notes sore throat but no active sputum production, pleurisy or chest pain Objective Patient able to complete full sentences no signs of respiratory insufficiency: Vital signs: Stable Respiratory: Expiration patient has multiple coughs unable to completely auscultate Cardiac: S1-S2 regular rate and rhythm Abdomen: Positive bowel sounds soft nontender ENT: No signs of erythema or breakdown/ulcers at this time Labs: C-reactive protein less than 0.29 Pro-calcitonin less than 0.05 ESR 10 Complement titers pending ENT laryngoscopy Signs of sinusitis The signs of active angioedema or obstructive foreign-body Primary function test: This of ATS criteria moderate obstructive ventilatory disease FEV1/FVC: 74 FEV1: 2.06/62% FVC: 2.72/69% Flow volume loop no signs of intra or extra thoracic obstruction Assessment & Plan 41-year-old female with a history of angioedema but admitted with sore throat and acute cough: #1 cough: Patient is been worked up at this time by ENT as well as flow volume loops. At this time she showing no signs of respiratory compromise and ENT did note signs of sinusitis. Patient is having no signs of respiratory/upper respiratory compromise we'll switch from IV steroids to prednisone at this time and taper down over the next 7 days. Patient needs to be off all antihistamines as well as steroids for at least a week prior to her visit to her she allergy clinic on 10/17/2016. Pulmonary sign off at this time please contact Dr. Wade frankel over the weekend if necessary Data Medications: Current Inpatient Medications Medications (Trade) Dose Ordered Sig/Hussein Route Start Time Stop Time Status Last Admin Dose Admin Enoxaparin Sodium (Lovenox Inj) 40 mg QPM SC 10/01/16 21:00 10/31/16 20:59 Acetaminophen (Tylenol Tab) 650 mg Q4H PRN PO 10/01/16 15:00 10/31/16 14:59 10/04/16 15:17 650 MG Al Hydrox/Mg Hydrox/Simethicone (Maalox Max Susp) 15 ml Q4H PRN PO 10/01/16 15:00 10/31/16 14:59 Magnesium Hydroxide (Milk Of Magnesia Susp) 30 ml Q12H PRN PO 10/01/16 15:00 10/31/16 14:59 Ondansetron HCl (Zofran Inj) 4 mg Q6H PRN IV 10/01/16 15:00 10/31/16 14:59 Albuterol (Ventolin Hfa Inhaler) 1 puffs Q4 PRN INH 10/01/16 15:00 10/31/16 14:59 Epinephrine (Epipen) 0.3 mg UD PRN IM 10/01/16 15:00 10/31/16 14:59 Loratadine 10 mg 10 mg DAILY PO 10/02/16 09:00 11/01/16 08:59 10/04/16 07:48 10 MG Methylprednisolone Sodium Succinate/ Syringe (Solu-Medrol IV/ Syringe) 1.28 ml @ 1.5 mls/min Q8H IV 10/02/16 00:00 11/01/16 00:00 10/04/16 15:17 1.5 MLS/MIN Albuterol/ Ipratropium (Duoneb) 3 ml Q4R INH 10/01/16 16:00 10/31/16 15:59 10/04/16 15:19 3 ML Albuterol Sulfate 2.5 mg 2.5 mg Q4 PRN INH 10/01/16 15:00 10/31/16 14:59 Azithromycin/ Dextrose (Zithromax IV/D5 250ml) 252.5 ml @ 125 mls/hr DAILY@0900 IV 10/02/16 09:00 10/08/16 08:59 10/04/16 09:26 125 MLS/HR Menthol (Nice Leena) 1 leena PRN PRN PO 10/01/16 16:45 10/31/16 16:44 10/01/16 16:44 1 LEENA Phenol (Chloraseptic 1.4% [place]) 2 sprays Q4H PRN MT 10/01/16 23:30 10/31/16 23:29 Guaifenesin (Mucinex Contr Rel Tab) 600 mg Q12 PO 10/02/16 09:00 11/01/16 08:59 10/04/16 07:48 600 MG Hydrocodone Bit/ Homatropine Methylb 5 ml 5 ml Q6 PRN PO 10/02/16 09:15 10/16/16 09:14 10/04/16 15:16 5 ML Levofloxacin/Prmx (Levaquin / D5W/ Premixed D5W) 150 ml @ 100 mls/hr DAILY@1600 IV 10/04/16 16:00 10/11/16 15:59 10/04/16 16:28 100 MLS/HR Ioversol (Optiray 320) 125 ml UD PRN IV 10/04/16 16:00 10/08/16 15:59 I & O: 24-Hour Column 10/04/16 08:00 Intake Total 250 ml Balance 250 ml Vital Signs: Date Time Temp Pulse Resp B/P Pulse Ox O2 Delivery O2 Flow Rate FiO2 10/04/16 16:00 Room Air 10/04/16 15:20 86 16 97 Room Air 10/04/16 15:16 36.6 95 18 116/76 94 10/04/16 11:38 81 16 98 Room Air 10/04/16 08:00 Room Air 10/04/16 07:53 84 16 98 Room Air 10/04/16 07:49 36.7 99 18 122/75 100 10/04/16 03:14 83 16 97 Room Air 10/04/16 00:15 87 16 94 Room Air 10/03/16 23:44 36.7 90 18 125/77 96 Room Air 10/03/16 20:02 96 16 96 Room Air 10/03/16 20:00 Room Air
[2016-10-04] MEDS: ENOXAPARIN 40 MG/0.4 ML SYR SC SCH (21:00)
[2016-10-05] VITALS (15 sets, daily range): BP systolic 117–136; BP diastolic 76–103; PULSE 74–136; TEMP 36.4–36.9; O2SAT 95–100
[2016-10-05] MEDS: METHYLPREDNISOLONE IV 80 MG in SYRINGE 0 ML IV SCH (00:37)
[2016-10-05] MEDS: ALBUT/IPRATROP 3MG/0.5MG NEB 3 ML VIAL INH SCH ×5 (03:56→19:37)
[2016-10-05] MEDS: HYDROCODONE/HOMATROPINE SYRUP 5MG/1.5MG 5ML UDP PO PRN ×2 (05:48→20:50)
[2016-10-05] MEDS: ACETAMINOPHEN 325 MG TAB PO PRN ×3 (05:49→18:40)
[2016-10-05] MEDS: GUAIFENESIN 600 MG TABCR PO SCH ×2 (08:06→23:11)
[2016-10-05] MEDS: LORATADINE 10 MG TAB PO SCH (08:06)
[2016-10-05] MEDS: AZITHROMYCIN IV 250 MG in DEXTROSE 5% 250ML 250 ML IV SCH (08:07)
[2016-10-05 09:19] LABS: BASO % 0.1 %; BASO ABS # 0.01 K/uL (0-0.2); COMPLETE YES; HEMATOCRIT 40.7 % (37-47); LYMPH % 13.1 %; LYMPH ABS # 1.92 K/uL (1.2-3.4); MEAN CELL VOLUME 83.6 fL (80-100); MEAN CORPUSCULAR HEMOGLOBIN 27.7 pg (25-34); MEAN CORPUSCULAR HGB CONC 33.2 g/dl (32-36); MEAN PLATELET VOLUME 10.6 fL (7.4-10.4); MONO % 2.7 %; NEUT % 83.1 %; PLATELET COUNT 305 K/uL (130-400); RED BLOOD COUNT 4.87 M/uL (4.2-5.4); WHITE BLOOD COUNT 14.71 K/uL (4.8-10.8)
[2016-10-05 09:45] LABS: BLOOD UREA NITROGEN 16 mg/dl (7-18); BUN/CREATININE RATIO 16.8 (10-20); C-REACTIVE PROTEIN < 0.29 mg/dl (0-0.29); CALCIUM 9.3 mg/dl (8.5-10.1); CARBON DIOXIDE 27 mmol/L (21-32); CHLORIDE 101 mmol/L (98-107); CREATININE 0.93 mg/dl (0.60-1.20); GLUCOSE 183 mg/dl (70-99); MAGNESIUM 2.4 mg/dl (1.8-2.4); POTASSIUM 3.7 mmol/L (3.5-5.1); SODIUM 136 mmol/L (136-145)
[2016-10-05] MEDS ORDERED: MAGIC SWIZZLE PO PRN (14:45)
--- NOTE | 2016-10-05 14:49 | PULMONARY PROGRESS NOTE ---
DATE: 10/05/2016 DATE: 10/05/2016. TIME: 2:20 p.m. SUBJECTIVE: The patient feels about the same as she did when admitted. She does not feel any better or any worse. She still has significant hoarseness. She still is short of breath to about the same degree. She does not feel badly as she did last fall when she had to be intubated. She is not expectorating any phlegm. OBJECTIVE: GENERAL: The patient is very hoarse. She did not appear short of breath. Temperature is 36.4. Review of her records does not show any significant fever since admission. Pupils were reactive to light. Mouth exam was unremarkable. She appears to have blotchy red spots in her neck. I believe this may be from rubbing it. HEART: The heart rate is 78 per minute. Blood pressure 123/85. Respiratory rate is 20 breaths per minute. Wheezing is heard on inspiration and expiration. Oxygen saturation is 97% on room air. ABDOMEN: Soft and nontender. EXTREMITIES: Show no cyanosis, clubbing or edema. IMPRESSIONS: 1. Recurring episodes of cough and shortness of breath -- etiology not entirely clear. 2. Possible angioedema. 3. Possible aspiration. COMMENTS: The patient does not feel terribly uncomfortable. She is not comfortable either and she has wheezing on examination. ENT examination was unremarkable. In spite of this, she complains of severe burning in her throat. She also has the sensation that food is sticking. The case was discussed with Dr. Lara. He believes she has recurrent angioedema. Typically, I would think if that was the only issue she would resolve more quickly than what she has this time. She is on prednisone 60 mg daily as well as levofloxacin, azithromycin, guaifenesin and frequent nebulizer treatments. I reviewed a report of pulmonary function testing done 02/08/2016. I also reviewed the actual date and flow volume loops. They were normal. Diffusion was also normal when corrected for alveolar ventilation. Would continue the current medicines. I believe the patient should be better than she is before discharge. Will discuss with Dr. Levy.
--- NOTE | 2016-10-05 14:52 | Progress Note ---
Subjective Date of Service: Oct 05, 2016. Subjective Pt evaluation today including: conversation w/ patient, conversation w/ family , physical exam, lab review, conversation w/ quality compliance consultant, review of inpatient medication list Pain: sore throat, no improvement PO Intake: adequate Voiding: no voiding problems patient frustrated, no real improvement over the past few day still with sore throat, no change still with tightness in chest and the constant feeling of needing to cough up phlegm, very little production discussed results of CT sinuses - no sinusitis discussed case with Dr. Preciado, he would like to aggressively treat GERD Problem List Medical Problems: (1) Allergic reaction Status: Acute (2) Anaphylaxis Status: Acute (3) Anterior chest wall pain Status: Acute (4) Breathing difficulty Status: Acute (5) Bronchospasm Status: Acute (6) Bronchospasm Status: Acute (7) Bronchospasm Status: Acute (8) Chest pain Status: Acute (9) Laryngeal edema Status: Acute (10) Pleurisy Status: Acute (11) Respiratory distress Status: Acute (12) Respiratory distress Status: Acute (13) Stridor Status: Acute Review of Systems Constitutional: + fatigue, + weakness ENT: + sore throat Respiratory: + cough, + shortness of breath, + sputum, + wheezing All Other Systems: Reviewed and Negative Medications Current Inpatient Medications Medications (Trade) Dose Ordered Sig/Hussein Route Start Time Stop Time Status Last Admin Dose Admin Enoxaparin Sodium (Lovenox Inj) 40 mg QPM SC 10/01/16 21:00 10/31/16 20:59 Acetaminophen (Tylenol Tab) 650 mg Q4H PRN PO 10/01/16 15:00 10/31/16 14:59 10/05/16 10:36 650 MG Al Hydrox/Mg Hydrox/Simethicone (Maalox Max Susp) 15 ml Q4H PRN PO 10/01/16 15:00 10/31/16 14:59 Magnesium Hydroxide (Milk Of Magnesia Susp) 30 ml Q12H PRN PO 10/01/16 15:00 10/31/16 14:59 Ondansetron HCl (Zofran Inj) 4 mg Q6H PRN IV 10/01/16 15:00 10/31/16 14:59 Albuterol (Ventolin Hfa Inhaler) 1 puffs Q4 PRN INH 10/01/16 15:00 10/31/16 14:59 Epinephrine (Epipen) 0.3 mg UD PRN IM 10/01/16 15:00 10/31/16 14:59 Loratadine (Claritin Tab) 10 mg DAILY PO 10/02/16 09:00 11/01/16 08:59 10/05/16 08:06 10 MG Albuterol/ Ipratropium (Duoneb) 3 ml Q4R INH 10/01/16 16:00 10/31/16 15:59 10/05/16 11:00 3 ML Albuterol Sulfate 2.5 mg 2.5 mg Q4 PRN INH 10/01/16 15:00 10/31/16 14:59 Azithromycin/ Dextrose (Zithromax IV/D5 250ml) 252.5 ml @ 125 mls/hr DAILY@0900 IV 10/02/16 09:00 10/08/16 08:59 10/05/16 08:07 125 MLS/HR Menthol (Nice Zohaib) 1 zohaib PRN PRN PO 10/01/16 16:45 10/31/16 16:44 10/01/16 16:44 1 ZOHAIB Phenol (Chloraseptic 1.4% [place]) 2 sprays Q4H PRN MT 10/01/16 23:30 10/31/16 23:29 Guaifenesin (Mucinex Contr Rel Tab) 600 mg Q12 PO 10/02/16 09:00 11/01/16 08:59 10/05/16 08:06 600 MG Hydrocodone Bit/ Homatropine Methylb 5 ml 5 ml Q6 PRN PO 10/02/16 09:15 10/16/16 09:14 10/05/16 05:48 5 ML Levofloxacin/Prmx (Levaquin / D5W/ Premixed D5W) 150 ml @ 100 mls/hr DAILY@1600 IV 10/04/16 16:00 10/11/16 15:59 10/04/16 16:28 100 MLS/HR Ioversol (Optiray 320) 125 ml UD PRN IV 10/04/16 16:00 10/08/16 15:59 Prednisone (PredniSONE TAB) 60 mg DAILY PO 10/05/16 08:00 11/04/16 07:59 10/05/16 08:07 60 MG Objective Vital Signs Date Time Temp Pulse Resp B/P Pulse Ox O2 Delivery O2 Flow Rate FiO2 10/05/16 11:58 36.4 10/05/16 11:00 78 16 98 Room Air 10/05/16 08:15 Room Air 10/05/16 08:11 36.8 78 18 123/85 96 10/05/16 08:01 92 16 96 Room Air 10/05/16 03:56 103 16 97 Room Air 10/05/16 00:41 36.7 78 18 121/78 95 Room Air 10/04/16 23:59 Room Air 10/04/16 23:55 63 16 97 Room Air 10/04/16 20:09 79 16 96 Room Air 10/04/16 20:00 Room Air 10/04/16 16:00 Room Air 10/04/16 15:20 86 16 97 Room Air 10/04/16 15:16 36.6 95 18 116/76 94 Physical Exam General Appearance: WD/WN, no apparent distress Eyes: normal inspection, EOMI, sclerae normal ENT: normal ENT inspection, hearing grossly normal, pharynx normal Neck: supple, no adenopathy, no JVD, trachea midline (no stridor) Respiratory/Chest: chest non-tender, no respiratory distress, no accessory muscle use Cardiovascular: regular rate, rhythm, no edema, no gallop, no JVD, no murmur Abdomen: normal bowel sounds, non tender, soft, no organomegaly Extremities: normal range of motion, non-tender, normal inspection, no pedal edema, no calf tenderness Neurologic/Psychiatric: geometry teacher II-XII nml as tested, no motor/sensory deficits, alert, normal mood/affect, oriented x 3 Skin: normal color, warm/dry, no rash Lymphatic: no adenopathy Laboratory Results Last 24 Hours Test 10/05/16 09:05 White Blood Count 14.71 K/uL Red Blood Count 4.87 M/uL Hemoglobin 13.5 g/dL Hematocrit 40.7 % Mean Corpuscular Volume 83.6 fL Mean Corpuscular Hemoglobin 27.7 pg Mean Corpuscular Hemoglobin Concent 33.2 g/dl Platelet Count 305 K/uL Mean Platelet Volume 10.6 fL Neutrophils (%) (Auto) 83.1 % Lymphocytes (%) (Auto) 13.1 % Monocytes (%) (Auto) 2.7 % Eosinophils (%) (Auto) 0.0 % Basophils (%) (Auto) 0.1 % Neutrophils # (Auto) 12.25 K/uL Lymphocytes # (Auto) 1.92 K/uL Monocytes # (Auto) 0.39 K/uL Eosinophils # (Auto) 0.00 K/uL Basophils # (Auto) 0.01 K/uL RDW Standard Deviation 43.8 fL RDW Coefficient of Variation 14.3 % Immature Granulocyte % (Auto) 1.0 % Immature Granulocyte # (Auto) 0.14 K/uL Erythrocyte Sedimentation Rate 20 mm/hr Sodium Level 136 mmol/L Potassium Level 3.7 mmol/L Chloride Level 101 mmol/L Carbon Dioxide Level 27 mmol/L Anion Gap 8.0 mmol/L Blood Urea Nitrogen 16 mg/dl Creatinine 0.93 mg/dl Est Creatinine Clear Calc Drug Dose 93.0 ml/min Estimated GFR () 89.1 Estimated GFR (Non- 76.9 BUN/Creatinine Ratio 16.8 Random Glucose 183 mg/dl Calcium Level 9.3 mg/dl Magnesium Level 2.4 mg/dl C-Reactive Protein < 0.29 mg/dl Assessment and Plan 41 yo female with history of angioedema, has required intubation in the past, also with reactive airway disease, here with chest tightness, dyspnea, cough and sore throat that started yesterday after possible aspiration event - Angioedema: lips and tongue normal, can visualize entire posterior oropharynx still, no change still no stridor continue Prednisone, anti-histamines ENT evaluation: normal oropharynx, normal cords, no inflammation visualized in throat or swelling - Reactive airway disease: appreciate pulm consult peak flows, utilize nebulizers, Levaquin for atypical coverage ideally would need bronchoscopy but Dr. Lara wants patient to see product safety and standards engineer at [place] prior to this wheezing inhalation and exhalation today overall little improvement since admission, flow loop performed, not good study due to coughing will treat potential GERD per Dr. Preciado, appreciate his recommendations - Sinusitis?: seen on laryngoscope, no signs of sinusitis clinically CT sinuses - no evidence of sinusitis WBC normal, afebrile will stop Zithromax, continue Levaquin - Sore throat, dysphagia: will add Protonix 40mg daily and Magic Swizzle, look for improvement would hold on GI consult, not a candidate for an EGD given her active asthma hypokalemia: resolved DVT proph -lovenox
[2016-10-05] MEDS ORDERED: PANTOprazole SOD 40 MG TAB PO ONE (15:00)
[2016-10-05] MEDS: LIDOCAINE HCL 2% VISCOUS SOLN 60 ML, DiphenhydrAMINE HCL SYRUP 150 MG, ALUMINUM/MAGNESI... MT PRN ×4 (16:39)
[2016-10-05] MEDS: LEVOFLOXACIN / D5W 750 MG in PREMIXED IN D5W 150 ML IV SCH (16:44)
[2016-10-05] MEDS ORDERED: OPTIRAY 320 IV PRN (17:15)
--- NOTE | 2016-10-05 17:49 | DIAGNOSTIC IMAGING REPORT ---
CT OF THE CHEST WITH IV CONTRAST CLINICAL HISTORY: Chest tightness. Asthma. COMPARISON STUDY: 05/17/2016 TECHNIQUE: Following the IV administration of 74 mL of Optiray-320, CT of the thorax was performed from the thoracic inlet to the lung bases. Images are reviewed in the axial, sagittal, and coronal planes. IV contrast was administered without complication. CT DOSE: 651.79 mGy.cm FINDINGS: Thyroid: Imaged portions of the thyroid gland are normal in appearance. Thoracic aorta: The thoracic aorta is normal in course and caliber, noting standard 3-vessel arch anatomy. No aneurysm or dissection is seen. Pulmonary vasculature: The pulmonary trunk is normal in caliber. There are no central filling defects identified to suggest pulmonary embolus. Note that this examination was not protocoled for the evaluation of pulmonary emboli. HEART: The heart is normal in size and configuration, without pericardial effusion. Lungs and pleural spaces: No pleural effusions are visualized. There is no focal consolidation. Mediastinum: There is no mediastinal lymphadenopathy. Meenakshi: Clear. Axilla: Clear. Upper abdomen: There are bilateral breast implants. There is a stable 2 cm left lobe hepatic cyst. The gallbladder surgically absent. Skeletal structures: There are no lytic or blastic osseous lesions. IMPRESSION: 1. No evidence of pathologic adenopathy 2. Atelectatic changes 3. No evidence of focal pulmonary consolidation 4. No evidence of pathologic adenopathy Electronically signed by: Kel Baker M.D. 10/05/2016 5:48 PM Dictated Date/Time: 10/05/2016 5:43 PM
[2016-10-05] MEDS ORDERED: DiphenhydrAMINE HCL 50 MG/ML VIAL IV STA (20:04)
[2016-10-05] MEDS ORDERED: METHYLPREDNISOLONE 125 MG VIAL IV STA (20:04)
[2016-10-05] MEDS ORDERED: DiphenhydrAMINE HCL 50 MG/ML VIAL ONE (20:05)
[2016-10-05] MEDS ORDERED: METHYLPREDNISOLONE 125 MG in SYRINGE 0 ML IV STA (20:06)
[2016-10-05] MEDS: ONDANSETRON INJ 2 MG/ML 2 ML VIAL IV PRN ×2 (20:11→20:23)
[2016-10-05] MEDS ORDERED: LORAZEPAM 2 MG/ML 1 ML VIAL IV PRN (20:15)
[2016-10-05] MEDS ORDERED: DiphenhydrAMINE HCL 50 MG/ML VIAL IV PRN (20:15)
[2016-10-05] MEDS ORDERED: ACETAMINOPHEN 325 MG TAB PO PRN (20:15)
[2016-10-05] MEDS ORDERED: RACEPINEPHRINE 2.25% NEBU SOLN 0.5 ML VIAL INH STA (20:24)
[2016-10-05] MEDS ORDERED: LEVALBUTEROL 1.25MG/0.5ML NEB INH PRN (20:30)
[2016-10-05] MEDS ORDERED: LORAZEPAM INJ 0.5 MG in SYRINGE 0.75 ML IV PRN (20:30)
[2016-10-05] MEDS ORDERED: IPRATROPIUM BROMIDE NEB SOLN 0.02% 2.5 ML VIAL INH PRN (20:30)
--- NOTE | 2016-10-05 20:32 | DIAGNOSTIC IMAGING REPORT ---
CHEST ONE VIEW PORTABLE CLINICAL HISTORY: tachypnea COMPARISON STUDY: 10/01/2016 FINDINGS: The cardiac and mediastinal contours are normal. There is no evidence of focal pulmonary consolidation. There is no evidence of failure. No pleural effusions are visualized.[ IMPRESSION: No active disease in the chest. Electronically signed by: Kel Baker M.D. 10/05/2016 8:31 PM Dictated Date/Time: 10/05/2016 8:30 PM
[2016-10-05] MEDS ORDERED: HYDROCODONE/HOMATROPINE SYRUP 5MG/1.5MG 5ML UDP PO PRN (21:00)
[2016-10-05] MEDS ORDERED: LEVALBUTEROL/IPRATROPIUM NEB INH SCH (21:00)
[2016-10-05] MEDS: NSS + 20MEQ KCL 1000ML 1,000 ML IV SCH (21:00)
[2016-10-05] MEDS: LEVALBUTEROL 1.25MG/0.5ML NEB INH SCH (21:28)
[2016-10-05] MEDS: IPRATROPIUM BROMIDE NEB SOLN 0.02% 2.5 ML VIAL INH SCH (21:28)
[2016-10-05 22:54] LABS: IPAP 12; ISTAT ALLEN TEST Pass; ISTAT ARTERIAL BLOOD GAS HCO3 27 meq/L (19-24); ISTAT ARTERIAL BLOOD GAS PCO2 38 mmHg (35-46); ISTAT ARTERIAL BLOOD GAS PO2 204 mmHg (80-95); ISTAT ARTERIAL BLOOD GAS pH 7.45 (7.35-7.45); ISTAT CARBON DIOXIDE 28 mEq/l (24-31); ISTAT DELIVERY SYSTEM BIPAP; ISTAT FIO2 40 %; ISTAT RATE 12; ISTAT SITE R Radial
[2016-10-05] MEDS: ENOXAPARIN 40 MG/0.4 ML SYR SC SCH (23:36)
[2016-10-06] VITALS (19 sets, daily range): BP systolic 122–149; BP diastolic 74–107; PULSE 53–102; TEMP 36.6–37; O2SAT 93–100
[2016-10-06] MEDS: METHYLPREDNISOLONE IV 60 MG in SYRINGE 0 ML IV SCH ×4 (02:27→19:59)
[2016-10-06] MEDS: IPRATROPIUM BROMIDE NEB SOLN 0.02% 2.5 ML VIAL INH SCH ×4 (02:30→19:45)
[2016-10-06] MEDS: LEVALBUTEROL 1.25MG/0.5ML NEB INH SCH ×4 (02:30→19:45)
[2016-10-06] MEDS: NSS + 20MEQ KCL 1000ML 1,000 ML IV SCH ×3 (04:41→20:02)
[2016-10-06 06:24] LABS: BASO % 0.1 %; BASO ABS # 0.01 K/uL (0-0.2); COMPLETE YES; HEMATOCRIT 36.2 % (37-47); IG% 1.4 %; LYMPH % 10.6 %; LYMPH ABS # 1.45 K/uL (1.2-3.4); MEAN CORPUSCULAR HEMOGLOBIN 28.2 pg (25-34); MEAN PLATELET VOLUME 9.9 fL (7.4-10.4); NEUT % 84.9 %; PLATELET COUNT 250 K/uL (130-400); RED BLOOD COUNT 4.36 M/uL (4.2-5.4); WHITE BLOOD COUNT 13.73 K/uL (4.8-10.8)
[2016-10-06 06:54] LABS: ALT/SGPT 19 U/L (12-78); BLOOD UREA NITROGEN 15 mg/dl (7-18); BUN/CREATININE RATIO 18.8 (10-20); CALCIUM 8.3 mg/dl (8.5-10.1); CARBON DIOXIDE 24 mmol/L (21-32); CHLORIDE 107 mmol/L (98-107); GLUCOSE 148 mg/dl (70-99); MAGNESIUM 2.4 mg/dl (1.8-2.4); POTASSIUM 4.3 mmol/L (3.5-5.1); SODIUM 141 mmol/L (136-145)
[2016-10-06 07:00] LABS: ALKALINE PHOSPHATASE 42 U/L (45-117); AST/SGOT 8 U/L (15-37); PHOSPHORUS 2.4 mg/dl (2.5-4.9)
--- NOTE | 2016-10-06 07:54 | DIAGNOSTIC IMAGING REPORT ---
CHEST ONE VIEW PORTABLE HISTORY: tachypnea COMPARISON: Chest 10/06/2016. FINDINGS: There are low lung volumes. This may account for the slight cardiac enlargement and interstitial thickening. No focal lung consolidations to suggest pneumonia. No evidence for pulmonary edema. No pleural effusions. No pneumothorax. IMPRESSION: Low lung volumes. Otherwise, no acute process within the chest. Electronically signed by: Oz Hendricks M.D. 10/06/2016 7:53 AM Dictated Date/Time: 10/06/2016 7:52 AM
[2016-10-06] MEDS ORDERED: PANTOprazole SOD 40 MG TAB PO SCH (08:00)
--- NOTE | 2016-10-06 08:02 | PULMONARY PROGRESS NOTE ---
DATE: 10/06/2016 TIME: 07:15 a.m. SUBJECTIVE: Last evening, the patient developed increasing respiratory distress. She was evaluated by the hospitalist and transferred to the intensive care unit. She was placed on BiPAP. Her situation seemed to stabilize. Her tachypnea and tachycardia resolved. However, she became uncomfortable with the BiPAP after about 2 hours and it was taken off without difficulty. According to nursing staff, she had a very good night. However, at this time, she is in respiratory distress. She states it started when they came in to do her chest x-ray this morning. The process of moving her around apparently resulted in shortness of breath. She has a harsh cough. It is nonproductive. The patient is barely able to speak at present. OBJECTIVE: GENERAL: The patient is uncomfortable and tachypneic. Temperature is 36.6. She is coughing frequently. EARS, NOSE, AND THROAT: Exam is unremarkable. HEART: Rate when I first went into her room was 110. As she would calm and stop coughing, the rates will go down back to 80. She then would go back up again. Her saturations are good. She is 99% on a nasal cannula. Blood pressure is 134/90. LUNGS: She is, however, using accessory muscles to breathe. She is very tight with marked wheezing on expiration. ABDOMEN: Soft and nontender. Bowel sounds were present. EXTREMITIES: Showed no cyanosis, clubbing or edema. LABORATORY DATA: White count this morning was 13.73. Hemoglobin 12.3. Platelets were 250,000. It is notable that the patient has had sed rates checked on the and the and they were 10 and 20 respectively. It is unknown if she had steroids before the sed rates were checked. She had a blood gas last night done on BiPAP showing a pH of 7.45 with a pCO2 of 38 and a pO2 of 204. Electrolytes show sodium 141, potassium 4.3, chloride 107, and bicarbonate 24. BUN is 15 with a creatinine of 0.8. Phosphorus was 2.4, which is slightly decreased. Chest x-ray from this morning was reviewed. There are increased prominence to the lung markings bilaterally, greater on the right than left, but this may be because she did not take a deep exhalation or probably was coughing at that time. The official report is pending. IMPRESSIONS: 1. Acute respiratory distress with bronchospasm. 2. Angioedema by history. 3. Dysphagia. COMMENTS AND RECOMMENDATIONS: The source of the patient's continued respiratory distress is not clear. It is unknown if this may represent form of asthma. Her exam today would be compatible with status asthmaticus. There is no evidence of stridor or upper airway obstruction. Plan for now is to give her a stat respiratory treatment. She was changed to IV methylprednisolone last evening, which I support. She was started on pantoprazole as Dr. Levy and I had discussed yesterday. She is getting her regular breathing treatments. We will use BiPAP again as needed, even in short term since it seemed to help last evening. Would maintain in the intensive care unit today.
[2016-10-06] MEDS: HYDROCODONE/HOMATROPINE SYRUP 5MG/1.5MG 5ML UDP PO PRN ×3 (08:04→20:12)
[2016-10-06] MEDS: PANTOprazole INJ 40 MG in SYRINGE 0 ML IV SCH (08:04)
[2016-10-06] MEDS: LORATADINE 10 MG TAB PO SCH ×2 (08:05→09:00)
[2016-10-06] MEDS: GUAIFENESIN 600 MG TABCR PO SCH ×3 (08:05→21:00)
[2016-10-06] MEDS ORDERED: ALBUTEROL 0.083% NEBU SOLN 3 ML VIAL INH STA (08:28)
[2016-10-06] MEDS: LIDOCAINE HCL 2% VISCOUS SOLN 60 ML, DiphenhydrAMINE HCL SYRUP 150 MG, ALUMINUM/MAGNESI... MT PRN ×8 (09:48→16:38)
--- NOTE | 2016-10-06 11:17 | CRITICAL CARE CONSULTATION ---
DATE OF CONSULTATION: 10/06/2016 CHIEF COMPLAINT: Shortness of breath. 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 She was concerned that she had aspirated on lettuce and was treated in the Emergency Department with IV steroids, bronchodilators, Benadryl, Pepcid and IM epinephrine due to concerns of angioedema. She was admitted to the hospital and placed on intravenous steroids, bronchodilators and empiric antibiotics. She was seen by the ENT service secondary to sore throat and hoarseness. The upper airway evaluation showed no obstruction, but some inflammation in the oropharynx, hypopharynx and larynx. She was seen by the pulmonary service and had a bedside PFT showing moderate obstructive ventilatory disease with an FEV1 of 2.06 liters/62%, FEV1-FVC ratio of 74. Flow volume loops showed no signs of intra or extrathoracic obstruction. Last night, she became short of breath and there was concern that she might be having an allergic reaction. She was given bronchodilators, racemic epinephrine, 125 mg of Solu-Medrol and Benadryl. She had previously been on prednisone. She was transferred to the intensive care unit where she was on BiPAP 12/5, 30% for a short period of time. This morning, she appears relatively comfortable off the BiPAP, but has a hoarse voice. Her is at her bedside and is very frustrated that she is not getting "not getting better." Rosio has a history of angioedema as well as an admission for shortness of breath and respiratory failure in April of this year. At that time, she was intubated primarily for unremitting cough and hypoxemia with the cough. That episode surrounded inhalation of noxious fumes associated with floor cleaning in the hospital. She is scheduled for allergy testing, October [address] [facility]. There has been consideration for bronchoscopy by Dr. Lara, earlier in this admission; however, according to his note, he would like to wait until allergy testing has been done. PAST MEDICAL HISTORY: Reactive airway disease, gastroesophageal reflux disease, irritable bowel syndrome, nephrolithiasis, lumbago, lumbago concussion, and angioedema. PAST SURGICAL HISTORY: Appendectomy, tubal ligation, ankle surgery, breast augmentation, septoplasty and turbinate reduction. ALLERGIES: FLOOR WAXES, POLISHES AND PENICILLIN. OUTPATIENT MEDICATIONS: Albuterol, Benadryl, EpiPen p.r.n., Claritin, Zofran. PRESENT MEDICATIONS: Acetaminophen, Maalox, albuterol, Benadryl, Lovenox, EpiPen, Mucinex, Hycodan, Atrovent, Xopenex, Claritin, magic swizzle, Ativan, milk of magnesia, menthol lozenges, Solu-Medrol, Zofran, Protonix, Chloraseptic spray, IV fluids of Normosol at 125 mL per hour. SOCIAL HISTORY: She is and does not drink or smoke. 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 FAMILY HISTORY: No family history of heart disease or diabetes. REVIEW OF SYSTEMS: Limited as she is somewhat difficult to understand with her hoarse voice. Primarily she feels like her chest is full and that she has something to cough out. She feels her breathing is better than it has been. She does not like the BiPAP because it makes her warm. She denies fevers, chills, nausea, vomiting. Additional review of systems is limited. PHYSICAL EXAMINATION: GENERAL: This is a tired appearing young woman, sitting in bed, in no distress. VITAL SIGNS: As follows: Temperature 36.8, heart rate 87, respiratory rate 23, blood pressure 129/77, oxygen saturation 93% on 2 liters nasal cannula. HEENT: Pupils are equally round and reactive to light. Oral mucosa is moist. Posterior pharynx has no erythema. NECK: No adenopathy, no stridor. Trachea is midline. LUNGS: Have some mild expiratory wheezes in the bilateral upper lung marley, none in the lower lung marley. No rhonchi, no rales. HEART: Regular rate and rhythm. ABDOMEN: Soft, nondistended, nontender. Active bowel sounds. EXTREMITIES: Warm. No edema. Radial and dorsalis pedis pulses are 2+ bilaterally. NEUROLOGIC: She is awake, alert and follows commands. LABORATORY DATA: White blood cell count 13.73, hemoglobin 12.3, hematocrit 36.2, platelets 250. Sodium 141, potassium 4.3, chloride 107, CO2 24, BUN 15, creatinine 0.8. Blood sugar 148, calcium 8.3, phosphorus 2.4, AST and ALT within normal limits, albumin 3.2. Allergy profile pending. IMAGING DATA: Portable chest x-ray from this morning was reviewed and shows no acute infiltrate, but low lung volumes. Other laboratory data and imaging data have been reviewed. IMPRESSION: 1. Reactive airway disease exacerbation. Dr. Varner had communicated with me last night that he thought she might be having an allergic reaction to something. She does not remember anything out of the ordinary that she had ingested last night or any unusual odors. 2. Sinusitis diagnosed by ENT, which may be contributing to her sore throat and hoarseness. 3. Possible angioedema in the Emergency Department. 4. History of gastroesophageal reflux disease. 5. History of irritable bowel syndrome. PLAN: 1. Continue intravenous steroids as well as bronchodilators. I have given her a 1 hour long albuterol treatment. 2. Continue IV fluids. 3. BiPAP as needed. 4. Await allergy panel, although it was done on steroids. 5. Continue to treat more aggressively for reflux, as suggested by Dr. Preciado. Her is quite frustrated that she is not improving. He reports that he feels she is getting worse. Clearly, she had some sort of event last night. I offered to transfer the patient to a different facility if he and tried to reassure him that sometimes an exacerbation of reactive airway disease may take more than a few days to improve. He is definitely concerned that she is going to miss her appointment in [place] and I agree. She needs to be off steroids and for a week prior to that testing. I answered his questions and told him that I do not think a bronchoscopy at this point would be therapeutic and that the risk outweighed the benefit. We can certainly reevaluate over the next day or so. Critical care time 1 hour. CHAVA
[2016-10-06] MEDS: LEVOFLOXACIN / D5W 750 MG in PREMIXED IN D5W 150 ML IV SCH (14:56)
--- NOTE | 2016-10-06 15:44 | Progress Note ---
Subjective Date of Service: Oct 06, 2016. Subjective Pt evaluation today including: conversation w/ patient, conversation w/ family , physical exam, lab review, conversation w/ independent consultant, review of inpatient medication list Pain: sore throat still PO Intake: ice chips Voiding: no voiding problems had severe coughing spell last night, tachycardia, anxiety, tachypnea moved to the ICU, CXR showed no changes thought to have had an allergic reaction or possible worsening bronchospasm treated with Solumedrol, Benadryl, BIPAP this morning she is resting comfortably although looks very tired still with cough and sore throat, PPI and magic swizzle help very little with sore throat she says that when she eats ice chips then swallows, the water triggers a cough she mentions that she wants to go to [facility] for allergy testing so that she can then get her bronchoscopy very focused on getting bronchoscopy, she feels that she inhaled food and that it is stuck in her trachea keeps describing feeling of just needing to cough up the food and then she'll be fine discussed that nothing was seen on her CT chest yesterday Problem List Medical Problems: (1) Allergic reaction Status: Acute (2) Anaphylaxis Status: Acute (3) Anterior chest wall pain Status: Acute (4) Breathing difficulty Status: Acute (5) Bronchospasm Status: Acute (6) Bronchospasm Status: Acute (7) Bronchospasm Status: Acute (8) Chest pain Status: Acute (9) Laryngeal edema Status: Acute (10) Pleurisy Status: Acute (11) Respiratory distress Status: Acute (12) Respiratory distress Status: Acute (13) Stridor Status: Acute Review of Systems Constitutional: + fatigue, + weakness ENT: + problem reported (hoarse voice), + sore throat Respiratory: + cough, + shortness of breath Psychiatric: + anxiety All Other Systems: Reviewed and Negative Medications Current Inpatient Medications Medications (Trade) Dose Ordered Sig/Hussein Route Start Time Stop Time Status Last Admin Dose Admin Enoxaparin Sodium (Lovenox Inj) 40 mg QPM SC 10/01/16 21:00 10/31/16 20:59 10/05/16 23:36 40 MG Acetaminophen (Tylenol Tab) 650 mg Q4H PRN PO 10/01/16 15:00 10/31/16 14:59 10/05/16 18:40 650 MG Al Hydrox/Mg Hydrox/Simethicone (Maalox Max Susp) 15 ml Q4H PRN PO 10/01/16 15:00 10/31/16 14:59 Magnesium Hydroxide (Milk Of Magnesia Susp) 30 ml Q12H PRN PO 10/01/16 15:00 10/31/16 14:59 Ondansetron HCl (Zofran Inj) 4 mg Q6H PRN IV 10/01/16 15:00 10/31/16 14:59 10/05/16 20:23 4 MG Albuterol (Ventolin Hfa Inhaler) 1 puffs Q4 PRN INH 10/01/16 15:00 10/31/16 14:59 Epinephrine (Epipen) 0.3 mg UD PRN IM 10/01/16 15:00 10/31/16 14:59 Loratadine (Claritin Tab) 10 mg DAILY PO 10/02/16 09:00 11/01/16 08:59 10/05/16 08:06 10 MG Menthol (Nice Leena) 1 leena PRN PRN PO 10/01/16 16:45 10/31/16 16:44 10/01/16 16:44 1 LEENA Phenol (Chloraseptic 1.4% [place]) 2 sprays Q4H PRN MT 10/01/16 23:30 10/31/16 23:29 Guaifenesin (Mucinex Contr Rel Tab) 600 mg Q12 PO 10/02/16 09:00 11/01/16 08:59 10/05/16 23:11 600 MG Hydrocodone Bit/ Homatropine Methylb 5 ml 5 ml Q6 PRN PO 10/02/16 09:15 10/16/16 09:14 10/06/16 08:04 5 ML Levofloxacin/Prmx (Levaquin / D5W/ Premixed D5W) 150 ml @ 100 mls/hr DAILY@1600 IV 10/04/16 16:00 10/11/16 15:59 10/06/16 14:56 100 MLS/HR Ioversol 125 ml UD PRN IV 10/04/16 16:00 10/08/16 15:59 Lidocaine HCl/ Diphenhydramine HCl/Al Hydroxide/ Mg Hydroxide/ Glycerin/Barcode (VISCOUS LIDOCAINE 2% Soln/ Benadryl Syrup/ Maalox Susp/ Glycerin Anhydrous Soln) Q6H PRN MT 10/05/16 15:00 11/04/16 14:59 10/06/16 09:48 5 ML Ioversol 111 ml 111 ml UD PRN IV 10/05/16 17:15 10/09/16 17:14 Potassium Chloride/Sodium Chloride (Nss + 20meq KCl 1000ml) 1,000 ml @ 125 mls/hr Q8H IV 10/05/16 20:05 11/04/16 20:04 10/06/16 13:24 125 MLS/HR Lorazepam 0.5 mg 0.5 mg Q4H PRN IV 10/05/16 20:15 11/04/16 20:14 Pantoprazole Sodium 40 mg/ Syringe 10 ml @ 5 mls/min DAILY IV 10/06/16 08:00 11/05/16 07:59 10/06/16 08:04 5 MLS/MIN Methylprednisolone Sodium Succinate/ Syringe (Solu-Medrol IV/ Syringe) 0.96 ml @ 1.5 mls/min Q6H IV 10/06/16 02:00 11/05/16 01:59 10/06/16 14:56 1.5 MLS/MIN Diphenhydramine HCl 50 mg 50 mg Q6H PRN IV 10/05/16 20:15 11/04/16 20:14 Lorazepam/Syringe (Ativan Inj/ Syringe) 1 ml @ 1 mls/min Q4H PRN IV 10/05/16 20:30 11/04/16 20:29 Ipratropium [place] (Atrovent 0.02% 0.5MG/2.5ML Neb) 0.5 mg Q6R INH 10/05/16 21:00 11/04/16 20:59 10/06/16 14:19 0.5 MG Levalbuterol (Xopenex 1.25MG/ 0.5ML Neb) 1.25 mg Q6R INH 10/05/16 21:00 11/04/16 20:59 10/06/16 14:19 1.25 MG Ipratropium [place] (Atrovent 0.02% 0.5MG/2.5ML Neb) 0.5 mg Q2H PRN INH 10/05/16 20:30 3/27/17 20:29 Levalbuterol (Xopenex 1.25MG/ 0.5ML Neb) 1.25 mg Q2H PRN INH 10/05/16 20:30 11/04/16 20:29 Hydrocodone Bit/ Homatropine Methylb (Hycodan Syrup) 5 ml Q4H PRN PO 10/05/16 21:00 10/19/16 20:59 10/06/16 01:03 5 ML Hydrocodone Bit/ Homatropine Methylb (Hycodan Syrup) 10 ml Q4H PRN PO 10/05/16 21:00 10/19/16 20:59 Objective Vital Signs Date Time Temp Pulse Resp B/P Pulse Ox O2 Delivery O2 Flow Rate FiO2 10/06/16 14:20 78 24 99 Nasal Cannula 2.0 10/06/16 12:00 36.7 61 20 133/88 98 Nasal Cannula 2.0 10/06/16 12:00 Nasal Cannula 2.0 10/06/16 10:00 100 23 149/97 97 Nasal Cannula 2.0 10/06/16 09:22 99 24 98 Nasal Cannula 2.0 10/06/16 08:00 36.8 87 23 129/77 93 Nasal Cannula 2.0 10/06/16 08:00 Nasal Cannula 2.0 10/06/16 07:16 102 24 98 Nasal Cannula 2.0 10/06/16 06:50 68 22 134/90 96 Nasal Cannula 2.0 10/06/16 04:00 36.6 72 18 138/88 96 Nasal Cannula 2.0 10/06/16 04:00 Nasal Cannula 2.0 10/06/16 03:00 77 24 124/83 93 Nasal Cannula 2.0 10/06/16 02:30 79 24 98 Nasal Cannula 2.0 10/06/16 02:00 67 18 139/87 97 Nasal Cannula 2.0 10/06/16 01:00 73 20 137/82 95 Nasal Cannula 2.0 10/06/16 00:01 37.0 75 22 137/107 98 Nasal Cannula 2.0 10/06/16 00:01 Nasal Cannula 2.0 10/05/16 23:00 83 22 126/77 99 BiPAP 30 10/05/16 22:00 86 20 117/78 99 BiPAP 40 10/05/16 21:28 97 27 99 BiPAP/CPAP 40 10/05/16 21:11 119 99 40 10/05/16 21:00 BiPAP 40 10/05/16 20:40 36.9 129 30 136/103 100 BiPAP 40 10/05/16 20:00 136 40 97 BiPAP/CPAP 10/05/16 19:37 119 36 97 Room Air Physical Exam General Appearance: WD/WN, no apparent distress Eyes: normal inspection, EOMI, sclerae normal ENT: normal ENT inspection, hearing grossly normal, pharynx normal Neck: supple, no adenopathy, thyroid normal, no JVD, trachea midline, + pertinent finding (no stridor) Respiratory/Chest: chest non-tender, no respiratory distress, no accessory muscle use, + wheezing (mild end exhalation) Cardiovascular: regular rate, rhythm, no edema, no gallop, no JVD, no murmur Abdomen: normal bowel sounds, non tender, soft, no organomegaly Extremities: normal range of motion, non-tender, normal inspection, no pedal edema, no calf tenderness Neurologic/Psychiatric: relations coordinator II-XII nml as tested, no motor/sensory deficits, alert, normal mood/affect, oriented x 3 Skin: normal color, warm/dry, no rash Laboratory Results Last 24 Hours Test 10/05/16 21:12 10/05/16 22:42 10/05/16 22:45 10/06/16 06:15 Blood Gas Sample Site R Radial Bedside Blood Gas pH (LAB) 7.45 Bedside Blood Gas pCO2 (LAB) 38 mmHg Bedside Blood Gas pO2 (LAB) 204 mmHg Bedside Blood Gas HCO3 (LAB) 27 meq/L Bedside Blood Gas Total CO2 28 mEq/l Bedside Blood Gas Base Excess (LAB) 2.0 meq/L Bedside Blood Gas O2 Saturation 100.0 % All Test Pass Oxygen Delivery Device BIPAP Bedside Oxygen Rate (breaths/min) 12 Bedside FiO2 40 % Blood Gas IPAP 12 Bedside Glucose 161 mg/dl White Blood Count 13.73 K/uL Red Blood Count 4.36 M/uL Hemoglobin 12.3 g/dL Hematocrit 36.2 % Mean Corpuscular Volume 83.0 fL Mean Corpuscular Hemoglobin 28.2 pg Mean Corpuscular Hemoglobin Concent 34.0 g/dl Platelet Count 250 K/uL Mean Platelet Volume 9.9 fL Neutrophils (%) (Auto) 84.9 % Lymphocytes (%) (Auto) 10.6 % Monocytes (%) (Auto) 3.0 % Eosinophils (%) (Auto) 0.0 % Basophils (%) (Auto) 0.1 % Neutrophils # (Auto) 11.67 K/uL Lymphocytes # (Auto) 1.45 K/uL Monocytes # (Auto) 0.41 K/uL Eosinophils # (Auto) 0.00 K/uL Basophils # (Auto) 0.01 K/uL RDW Standard Deviation 43.2 fL RDW Coefficient of Variation 14.3 % Immature Granulocyte % (Auto) 1.4 % Immature Granulocyte # (Auto) 0.19 K/uL Sodium Level 141 mmol/L Potassium Level 4.3 mmol/L Chloride Level 107 mmol/L Carbon Dioxide Level 24 mmol/L Anion Gap 10.0 mmol/L Blood Urea Nitrogen 15 mg/dl Creatinine 0.80 mg/dl Est Creatinine Clear Calc Drug Dose 108.6 ml/min Estimated GFR () 106.9 Estimated GFR (Non- 92.2 BUN/Creatinine Ratio 18.8 Random Glucose 148 mg/dl Calcium Level 8.3 mg/dl Phosphorus Level 2.4 mg/dl Magnesium Level 2.4 mg/dl Total Bilirubin 0.3 mg/dl Direct Bilirubin < 0.1 mg/dl Aspartate Amino Transf (AST/SGOT) 8 U/L Alanine Aminotransferase (ALT/SGPT) 19 U/L Alkaline Phosphatase 42 U/L Total Protein 6.3 gm/dl Albumin 3.2 gm/dl Test 10/06/16 11:59 Bedside Glucose 120 mg/dl Assessment and Plan 41 yo female with history of angioedema, has required intubation in the past, also with reactive airway disease, here with chest tightness, dyspnea, cough and sore throat that started yesterday after possible aspiration event - Reactive airway disease: worsened over night, now in ICU due extreme coughing spell stable this morning peak flows, utilize nebulizers, Levaquin for atypical coverage ideally would need bronchoscopy but Dr. Lara wants patient to see warehouse order puller at [facility] prior to this patient really focused on the bronchoscopy, thinks that she has food in trachea no plans for bronchoscopy over weekend will treat potential GERD per Dr. Preciado, appreciate his recommendations - Sinusitis?: seen on laryngoscope, no signs of sinusitis clinically CT sinuses - no evidence of sinusitis WBC normal, afebrile will stop Zithromax, continue Levaquin - Sore throat, dysphagia: will add Protonix 40mg daily and Magic Swizzle, look for improvement would hold on GI consult, not a candidate for an EGD given her active asthma - history of Angioedema: lips and tongue normal, can visualize entire posterior oropharynx still, no change still no stridor continue Prednisone, anti-histamines ENT evaluation: normal oropharynx, normal cords, no inflammation visualized in throat or swelling hypokalemia: resolved DVT proph -lovenox Plan: unclear what to do at this point, she is failing to improve on days of steroids and nebulizers, antihistamines c/p cough and sore throat interestingly, her HR and breathing were very stable when sleeping, certainly anxiety playing a role re-affirmed to her that she will get better
[2016-10-06] MEDS: ENOXAPARIN 40 MG/0.4 ML SYR SC SCH (21:45)
[2016-10-06] MEDS ORDERED: NURSING VERBAL MED ORDER ONE (23:15)
[2016-10-06] MEDS ORDERED: MoRPHine SULFATE 2 MG/ML CARP IV STA (23:33)
[2016-10-07] VITALS (16 sets, daily range): BP systolic 118–151; BP diastolic 68–97; PULSE 47–88; TEMP 36.5–36.7; O2SAT 95–100
[2016-10-07] MEDS: IPRATROPIUM BROMIDE NEB SOLN 0.02% 2.5 ML VIAL INH SCH ×4 (02:08→18:09)
[2016-10-07] MEDS: LEVALBUTEROL 1.25MG/0.5ML NEB INH SCH ×4 (02:08→18:10)
[2016-10-07] MEDS: METHYLPREDNISOLONE IV 60 MG in SYRINGE 0 ML IV SCH ×4 (02:12→19:40)
[2016-10-07 06:09] LABS: BASO % 0.1 %; BASO ABS # 0.01 K/uL (0-0.2); COMPLETE YES; HEMATOCRIT 38.9 % (37-47); IG% 0.8 %; LYMPH % 12.2 %; LYMPH ABS # 1.45 K/uL (1.2-3.4); MEAN CELL VOLUME 84.2 fL (80-100); MEAN CORPUSCULAR HEMOGLOBIN 27.3 pg (25-34); MEAN CORPUSCULAR HGB CONC 32.4 g/dl (32-36); MEAN PLATELET VOLUME 10.3 fL (7.4-10.4); MONO % 3.1 %; NEUT % 83.8 %; PLATELET COUNT 256 K/uL (130-400); RED BLOOD COUNT 4.62 M/uL (4.2-5.4); WHITE BLOOD COUNT 11.88 K/uL (4.8-10.8)
[2016-10-07 06:35] LABS: ALT/SGPT 15 U/L (12-78); BLOOD UREA NITROGEN 14 mg/dl (7-18); BUN/CREATININE RATIO 25.1 (10-20); CALCIUM 8.2 mg/dl (8.5-10.1); CARBON DIOXIDE 28 mmol/L (21-32); CHLORIDE 103 mmol/L (98-107); CREATININE 0.55 mg/dl (0.60-1.20); GLUCOSE 138 mg/dl (70-99); MAGNESIUM 2.6 mg/dl (1.8-2.4); POTASSIUM 4.4 mmol/L (3.5-5.1); SODIUM 138 mmol/L (136-145)
[2016-10-07 06:38] LABS: ALKALINE PHOSPHATASE 43 U/L (45-117); AST/SGOT 9 U/L (15-37); PHOSPHORUS 2.7 mg/dl (2.5-4.9)
[2016-10-07] MEDS: NSS + 20MEQ KCL 1000ML 1,000 ML IV SCH (07:47)
[2016-10-07] MEDS: LORATADINE 10 MG TAB PO SCH (07:47)
[2016-10-07] MEDS: PANTOprazole INJ 40 MG in SYRINGE 0 ML IV SCH (07:47)
[2016-10-07] MEDS: GUAIFENESIN 600 MG TABCR PO SCH ×2 (07:48→20:54)
[2016-10-07] MEDS: LIDOCAINE HCL 2% VISCOUS SOLN 60 ML, DiphenhydrAMINE HCL SYRUP 150 MG, ALUMINUM/MAGNESI... MT PRN ×4 (07:58)
--- NOTE | 2016-10-07 08:26 | DIAGNOSTIC IMAGING REPORT ---
SINGLE VIEW CHEST CLINICAL HISTORY: Tachypnea. FINDINGS: An AP, portable, upright chest radiograph is compared to study dated 10/06/2016. The examination is degraded by portable technique and large body habitus. The cardiomediastinal silhouette is unremarkable. Inflation has improved from yesterday. Bibasilar atelectasis persists. The lungs and pleural spaces are otherwise clear. No pneumothorax is seen. The bony thorax is grossly intact. Cholecystectomy clips are identified in the right upper quadrant. IMPRESSION: No active disease in the chest. Electronically signed by: Freddy Amezcua M.D. 10/07/2016 8:25 AM Dictated Date/Time: 10/07/2016 8:24 AM
[2016-10-07] MEDS ORDERED: DEXAMETHASONE CONC SOLN 3.75 MG, NYSTATIN SUSP 30 ML, DiphenhydrAMINE HCL SYRUP 300 MG,... PO PRN ×5 (08:30)
--- NOTE | 2016-10-07 08:55 | PULMONARY PROGRESS NOTE ---
DATE: 10/07/2016 Seeing the patient in the intensive care unit. She seems to be stable with hoarseness and cough which is vigorous cough associated with hoarseness. She denies sputum production and states she feels like she has a bit of chest tightness over the anterior thorax. She has not had any foreign body aspiration, although she may have choked on some lettuce. ENT evaluation suggesting no foreign body aspiration with minimal amount of erythema in the vocal cords. She does have a cat at home and that does not seem to bother her. She denies fevers or night sweats. From a pulmonary standpoint, she seems to be stable at this point. Dr. Lara and Dr. Preciado have evaluated her as well. PHYSICAL EXAMINATION: VITAL SIGNS: Stable and she is afebrile. Her pulse is 70 and regular, respiratory rate 20, blood pressure 127/77, oxygen saturation 95% on 2 liters. She has a very hoarse voice. HEENT: Reveals no stridor. Palate elevates appropriately. Tongue protrudes in midline. There is no thrush noted. There is no evidence of any upper airway obstruction. Manipulation of the trachea produces slight coughing. No adenopathy is noted. Expansion of the thorax is normal with deep inspiration. HEART: Regular rate and rhythm. No murmurs are heard. LUNGS: Reveal very minimal wheezing at the end of expiration bilaterally with "tight respiratory sounds," consistent with bronchospasm. I do not detect any rales. Forced expiratory maneuver produces vigorous coughing. ABDOMEN: Soft and obese, nontender. EXTREMITIES: She has no cyanosis, clubbing or edema. When I spoke with the patient, apparently she has been exercising. She would run a block and then walk a block. She used albuterol beforehand just several weeks ago, which afforded good improvement in her exercise tolerance. She has never really had any problems until she had been intubated in the past. She does carry a history of angioedema, has required steroids and epinephrine in the past. Her chest x-ray to my eye today is normal. Chest film yesterday looked good as well with no infiltrates noted. I thought the tracheal stripe look good. When I reviewed her records, I do not see she had a specific CT scan of the neck or trachea, but x-rays of soft tissue of the neck looked fairly good. There was no evidence of any significant tracheal obstruction. LABORATORY DATA: [place] count is 11.88, hemoglobin 12.6 with an unremarkable differential. Sed rate is normal. Blood gas revealed pH 7.45, pCO2 of 38, pO2 of 204. Her PRP is unremarkable and sugar 138. Coagulation profile, urinalysis unremarkable. C3 and C4 were unremarkable. Influenza A and B serology is negative. She has had an allergy workup, and the C4 and C1 esterase inhibitor evaluations have been negative, essentially ruling out hereditary angioedema. IMPRESSION: Bronchial asthma with exacerbation. I think this is the most likely etiology for her symptoms. The fact that she has upper airway symptoms such as hoarseness and feels like there is something in the upper airway suggests she could have obstruction in the upper airway, such as tracheomalacia or foreign body aspiration she is not aware of. Nothing was seen on ENT evaluation, but I do not believe the scope was passed through the vocal cords into the proximal and distal trachea. Silent aspiration or even esophageal abnormalities such as Zenker's diverticulum are possibilities as well. I do not think he would see this on the CT scan since I do not think she has had a CAT scan of the neck, at least from what I can glean after reviewing the records. RECOMMENDATIONS: 1. At this point, I would ask Dr. Love to consider bronchoscopy for evaluation of the subglottic area and trachea, right and left main stem bronchi to rule out tracheomalacia or foreign body aspiration. This should be done in the OR with careful evaluation to ensure she will not develop upper airway obstruction. 2. GI evaluation for consideration for endoscopy. Perhaps that could be done at the same time. 3. At this point, I will continue on the methylprednisolone, Xopenex with Atrovent, and I think the Levaquin probably could be discontinued. I do not see any evidence of infection. I think the Mucinex could be stopped as well. I would also add on Asmanex 220 mcg one inhalation b.i.d. At this point, I think she should be kept in the intensive care unit with careful evaluation for upper airway obstruction, especially in the setting of history of angioedema. MTDD
--- NOTE | 2016-10-07 10:24 | Hospitalist Progress Note ---
Hospitalist Progress Note Date of Service Oct 07, 2016. Subjective Pt evaluation today including: conversation w/ patient, physical exam, chart review, lab review, review of studies, review of inpatient medication list Patient had intractable coughing and concern or worsening angioedema transferred to ICU yesterday Today patient continues to complain of hoarseness, congestion in her chest Constitutional: No fever Eyes: No worsening of vision ENT: + nasal symptoms, + sore throat, + trouble swallowing Respiratory: + cough, + shortness of breath, No dyspnea on exertion, No sputum, No wheezing Cardiovascular: No chest pain Abdomen: No diarrhea, No nausea, No pain, No vomiting Musculoskeletal: No joint pain Female : No dysuria Neurologic: No memory loss Psychiatric: No depression symptoms Heme: No abnormal bleeding/bruising Endo: No fatigue Medications Current Inpatient Medications Medications (Trade) Dose Ordered Sig/Hussein Route Start Time Stop Time Status Last Admin Dose Admin Enoxaparin Sodium (Lovenox Inj) 40 mg QPM SC 10/01/16 21:00 10/31/16 20:59 10/06/16 21:45 40 MG Acetaminophen (Tylenol Tab) 650 mg Q4H PRN PO 10/01/16 15:00 10/31/16 14:59 10/05/16 18:40 650 MG Al Hydrox/Mg Hydrox/Simethicone (Maalox Max Susp) 15 ml Q4H PRN PO 10/01/16 15:00 10/31/16 14:59 Magnesium Hydroxide (Milk Of Magnesia Susp) 30 ml Q12H PRN PO 10/01/16 15:00 10/31/16 14:59 Ondansetron HCl (Zofran Inj) 4 mg Q6H PRN IV 10/01/16 15:00 10/31/16 14:59 10/05/16 20:23 4 MG Albuterol (Ventolin Hfa Inhaler) 1 puffs Q4 PRN INH 10/01/16 15:00 10/31/16 14:59 Epinephrine (Epipen) 0.3 mg UD PRN IM 10/01/16 15:00 10/31/16 14:59 Loratadine (Claritin Tab) 10 mg DAILY PO 10/02/16 09:00 11/01/16 08:59 10/05/16 08:06 10 MG Menthol (Nice Zohaib) 1 zohaib PRN PRN PO 10/01/16 16:45 10/31/16 16:44 10/01/16 16:44 1 ZOHAIB Guaifenesin 600 mg 600 mg Q12 PO 10/02/16 09:00 11/01/16 08:59 10/05/16 23:11 600 MG Levofloxacin/Prmx (Levaquin / D5W/ Premixed D5W) 150 ml @ 100 mls/hr DAILY@1600 IV 10/04/16 16:00 10/11/16 15:59 10/06/16 14:56 100 MLS/HR Ioversol (Optiray 320) 125 ml UD PRN IV 10/04/16 16:00 10/08/16 15:59 Ioversol 111 ml 111 ml UD PRN IV 10/05/16 17:15 10/09/16 17:14 Potassium Chloride/Sodium Chloride (Nss + 20meq KCl 1000ml) 1,000 ml @ 125 mls/hr Q8H IV 10/05/16 20:05 11/04/16 20:04 10/07/16 07:47 125 MLS/HR Lorazepam 0.5 mg 0.5 mg Q4H PRN IV 10/05/16 20:15 11/04/16 20:14 Pantoprazole Sodium 40 mg/ Syringe 10 ml @ 5 mls/min DAILY IV 10/06/16 08:00 11/05/16 07:59 10/07/16 07:47 5 MLS/MIN Methylprednisolone Sodium Succinate/ Syringe (Solu-Medrol IV/ Syringe) 0.96 ml @ 1.5 mls/min Q6H IV 10/06/16 02:00 11/05/16 01:59 10/07/16 07:47 1.5 MLS/MIN Diphenhydramine HCl 50 mg 50 mg Q6H PRN IV 10/05/16 20:15 11/04/16 20:14 Lorazepam/Syringe (Ativan Inj/ Syringe) 1 ml @ 1 mls/min Q4H PRN IV 10/05/16 20:30 11/04/16 20:29 Ipratropium [place] (Atrovent 0.02% 0.5MG/2.5ML Neb) 0.5 mg Q6R INH 10/05/16 21:00 11/04/16 20:59 10/07/16 07:48 0.5 MG Levalbuterol (Xopenex 1.25MG/ 0.5ML Neb) 1.25 mg Q6R INH 10/05/16 21:00 11/04/16 20:59 10/07/16 07:48 1.25 MG Ipratropium [place] (Atrovent 0.02% 0.5MG/2.5ML Neb) 0.5 mg Q2H PRN INH 10/05/16 20:30 11/04/16 20:29 Levalbuterol (Xopenex 1.25MG/ 0.5ML Neb) 1.25 mg Q2H PRN INH 10/05/16 20:30 11/04/16 20:29 Hydrocodone Bit/ Homatropine Methylb (Hycodan Syrup) 5 ml Q4H PRN PO 10/05/16 21:00 10/19/16 20:59 10/06/16 01:03 5 ML Hydrocodone Bit/ Homatropine Methylb (Hycodan Syrup) 10 ml Q4H PRN PO 10/05/16 21:00 10/19/16 20:59 10/06/16 16:38 10 ML Mometasone Furoate 1 puff PM INH 10/07/16 21:00 11/06/16 20:59 Dexamethasone/ Nystatin/ Diphenhydramine HCl/Sucrose/ Microcrystalline Cellulose/Barcode (Decadron Conc Soln/Mycostatin Susp/Benadryl Syrup/Ora-Sweet Syrup/Ora-Plus Susp. Vehicle) Q6H PRN PO 10/07/16 08:30 11/06/16 08:29 Objective Vital Signs Date Time Temp Pulse Resp B/P Pulse Ox O2 Delivery O2 Flow Rate FiO2 10/07/16 08:00 36.6 69 22 135/91 100 Nasal Cannula 2.0 10/07/16 08:00 Nasal Cannula 2.0 10/07/16 07:49 51 16 100 Nasal Cannula 2.0 10/07/16 06:00 72 18 127/77 95 Nasal Cannula 2.0 10/07/16 04:00 Nasal Cannula 2.0 10/07/16 04:00 36.5 49 16 123/68 100 Nasal Cannula 2.0 10/07/16 02:08 88 20 100 Nasal Cannula 2.0 10/07/16 02:00 53 19 118/75 99 Nasal Cannula 2.0 10/07/16 00:01 36.6 56 21 129/80 95 Nasal Cannula 2.0 10/06/16 23:59 Nasal Cannula 2.0 10/06/16 22:00 58 20 122/87 99 Nasal Cannula 2.0 10/06/16 20:00 96 Nasal Cannula 2.0 10/06/16 20:00 36.6 66 20 132/90 98 Nasal Cannula 2.0 10/06/16 19:45 89 22 100 Nasal Cannula 2.0 10/06/16 18:00 69 22 127/79 98 Nasal Cannula 2.0 10/06/16 16:00 36.8 71 22 134/89 98 Nasal Cannula 2.0 10/06/16 16:00 Nasal Cannula 2.0 10/06/16 14:20 78 24 99 Nasal Cannula 2.0 10/06/16 14:00 53 21 132/74 99 Nasal Cannula 2.0 10/06/16 12:00 36.7 61 20 133/88 98 Nasal Cannula 2.0 10/06/16 12:00 Nasal Cannula 2.0 Physical Exam General Appearance: WD/WN, no apparent distress Eyes: normal inspection ENT: normal ENT inspection, pharynx normal, + muffled/hoarse voice Neck: supple Respiratory/Chest: chest non-tender, lungs clear, normal breath sounds, no respiratory distress Cardiovascular: regular rate, rhythm, no edema, no gallop Abdomen: normal bowel sounds, non tender, soft Extremities: normal range of motion, non-tender Neurologic/Psychiatric: mirror inspector II-XII nml as tested, no motor/sensory deficits, alert, oriented x 3 Skin: normal color, warm/dry Lymphatic: no adenopathy Laboratory Results Last 24 Hours Test 10/06/16 11:59 10/06/16 17:43 10/06/16 21:27 10/07/16 05:45 Bedside Glucose 120 mg/dl 121 mg/dl 117 mg/dl White Blood Count 11.88 K/uL Red Blood Count 4.62 M/uL Hemoglobin 12.6 g/dL Hematocrit 38.9 % Mean Corpuscular Volume 84.2 fL Mean Corpuscular Hemoglobin 27.3 pg Mean Corpuscular Hemoglobin Concent 32.4 g/dl Platelet Count 256 K/uL Mean Platelet Volume 10.3 fL Neutrophils (%) (Auto) 83.8 % Lymphocytes (%) (Auto) 12.2 % Monocytes (%) (Auto) 3.1 % Eosinophils (%) (Auto) 0.0 % Basophils (%) (Auto) 0.1 % Neutrophils # (Auto) 9.95 K/uL Lymphocytes # (Auto) 1.45 K/uL Monocytes # (Auto) 0.37 K/uL Eosinophils # (Auto) 0.00 K/uL Basophils # (Auto) 0.01 K/uL RDW Standard Deviation 44.6 fL RDW Coefficient of Variation 14.4 % Immature Granulocyte % (Auto) 0.8 % Immature Granulocyte # (Auto) 0.10 K/uL Sodium Level 138 mmol/L Potassium Level 4.4 mmol/L Chloride Level 103 mmol/L Carbon Dioxide Level 28 mmol/L Anion Gap 7.0 mmol/L Blood Urea Nitrogen 14 mg/dl Creatinine 0.55 mg/dl Est Creatinine Clear Calc Drug Dose 158.0 ml/min Estimated GFR () 136.0 Estimated GFR (Non- 117.3 BUN/Creatinine Ratio 25.1 Random Glucose 138 mg/dl Calcium Level 8.2 mg/dl Phosphorus Level 2.7 mg/dl Magnesium Level 2.6 mg/dl Total Bilirubin 0.4 mg/dl Direct Bilirubin < 0.1 mg/dl Aspartate Amino Transf (AST/SGOT) 9 U/L Alanine Aminotransferase (ALT/SGPT) 15 U/L Alkaline Phosphatase 43 U/L Total Protein 6.1 gm/dl Albumin 3.0 gm/dl Assessment and Plan 41 yo female with history of angioedema, has required intubation in the past, also with reactive airway disease, here with chest tightness,presents with SOB and cough. Patien had concern for worsening angioedema vs oropharyngeal edema and transferred to ICU on 10.06 Bronchial Asthma - appreciate pulmonary input - continue nebulizers - continue solumedrol q 6 hours - patient to be seen by air conditioning mechanic at [facility] this week, if not discharged will need to be re-scheduled Hoarseness/Dysphagia - seen by ENT on laryngoscopy - unclear etiology/foreign body aspiration vs sinusitis/postnasal drip - per pulmonary recommend bronchoscopy to r/u tracheal etiologies/consult Dr. Love - continue Mucinex and levaquin Sinusitis - cont Levaquin/Mucinex - continue PPI as questionable component of GERD h/o recurrent Angioedema: -ENT evaluation: normal oropharynx, normal cords, no inflammation visualized in throat or swelling - racemic epinephrine given on 2. hypokalemia: resolved DVT proph -lovenox
--- NOTE | 2016-10-07 10:38 | Critical Care Progress Note ---
Critical Care Progress Note Date of Service Oct 07, 2016. Attending Subjective She is feeling better. Less wheezing noted. Appears comfortable and compensated. No worsening dyspnea. No increased anxiety. Spoke with pulmonary Objective Vitals-afeb/VSS HEENT--no new focal changes. Pulmonary--exchange is really good--I don't hear much of any wheezing AM today Cardio--rate and volume to track GI--OBR and monitor progress. Musculo--no changes Neuro--no focal changes Psychiatric--appears calm at the time of visit AM today Assessment & Plan Asthma--Reactive Airway 1. Pulmonary--consult in place. Unusual constellation of symptoms--question if something more unusual here--evaluation in progress 2. Cardio--rate and volume ok. No additions or changes. 3. GI--diet as tolerated 4. Musculo--will need to mobilize 5. F/E/N--tracking appropriates 6. Psychiatric--anxiety Rx in place Critical Care Time 45min Consults & Procedures Consultants: Dr Garcia--Pulmonary Data Medications: Current Inpatient Medications Medications (Trade) Dose Ordered Sig/Hussein Route Start Time Stop Time Status Last Admin Dose Admin Enoxaparin Sodium (Lovenox Inj) 40 mg QPM SC 10/01/16 21:00 10/31/16 20:59 10/06/16 21:45 40 MG Acetaminophen (Tylenol Tab) 650 mg Q4H PRN PO 10/01/16 15:00 10/31/16 14:59 10/05/16 18:40 650 MG Al Hydrox/Mg Hydrox/Simethicone (Maalox Max Susp) 15 ml Q4H PRN PO 10/01/16 15:00 10/31/16 14:59 Magnesium Hydroxide (Milk Of Magnesia Susp) 30 ml Q12H PRN PO 10/01/16 15:00 10/31/16 14:59 Ondansetron HCl (Zofran Inj) 4 mg Q6H PRN IV 10/01/16 15:00 10/31/16 14:59 10/05/16 20:23 4 MG Albuterol (Ventolin Hfa Inhaler) 1 puffs Q4 PRN INH 10/01/16 15:00 10/31/16 14:59 Epinephrine (Epipen) 0.3 mg UD PRN IM 10/01/16 15:00 10/31/16 14:59 Loratadine (Claritin Tab) 10 mg DAILY PO 10/02/16 09:00 11/01/16 08:59 10/05/16 08:06 10 MG Menthol (Nice Zohaib) 1 zohaib PRN PRN PO 10/01/16 16:45 10/31/16 16:44 10/01/16 16:44 1 ZOHAIB Guaifenesin 600 mg 600 mg Q12 PO 10/02/16 09:00 11/01/16 08:59 10/05/16 23:11 600 MG Levofloxacin/Prmx (Levaquin / D5W/ Premixed D5W) 150 ml @ 100 mls/hr DAILY@1600 IV 10/04/16 16:00 10/11/16 15:59 10/06/16 14:56 100 MLS/HR Ioversol (Optiray 320) 125 ml UD PRN IV 10/04/16 16:00 10/08/16 15:59 Ioversol (Optiray 320) 111 ml UD PRN IV 10/05/16 17:15 10/09/16 17:14 Lorazepam 0.5 mg 0.5 mg Q4H PRN IV 10/05/16 20:15 11/04/16 20:14 Pantoprazole Sodium 40 mg/ Syringe 10 ml @ 5 mls/min DAILY IV 10/06/16 08:00 11/05/16 07:59 10/07/16 07:47 5 MLS/MIN Methylprednisolone Sodium Succinate/ Syringe (Solu-Medrol IV/ Syringe) 0.96 ml @ 1.5 mls/min Q6H IV 10/06/16 02:00 11/05/16 01:59 10/07/16 07:47 1.5 MLS/MIN Diphenhydramine HCl 50 mg 50 mg Q6H PRN IV 10/05/16 20:15 11/04/16 20:14 Lorazepam/Syringe (Ativan Inj/ Syringe) 1 ml @ 1 mls/min Q4H PRN IV 10/05/16 20:30 11/04/16 20:29 Ipratropium [place] (Atrovent 0.02% 0.5MG/2.5ML Neb) 0.5 mg Q6R INH 10/05/16 21:00 11/04/16 20:59 10/07/16 07:48 0.5 MG Levalbuterol (Xopenex 1.25MG/ 0.5ML Neb) 1.25 mg Q6R INH 10/05/16 21:00 11/04/16 20:59 10/07/16 07:48 1.25 MG Ipratropium [place] (Atrovent 0.02% 0.5MG/2.5ML Neb) 0.5 mg Q2H PRN INH 10/05/16 20:30 11/04/16 20:29 Levalbuterol (Xopenex 1.25MG/ 0.5ML Neb) 1.25 mg Q2H PRN INH 10/05/16 20:30 11/04/16 20:29 Hydrocodone Bit/ Homatropine Methylb (Hycodan Syrup) 5 ml Q4H PRN PO 10/05/16 21:00 10/19/16 20:59 10/06/16 01:03 5 ML Hydrocodone Bit/ Homatropine Methylb (Hycodan Syrup) 10 ml Q4H PRN PO 10/05/16 21:00 10/19/16 20:59 10/06/16 16:38 10 ML Mometasone Furoate 1 puff PM INH 10/07/16 21:00 11/06/16 20:59 Dexamethasone/ Nystatin/ Diphenhydramine HCl/Sucrose/ Microcrystalline Cellulose/Barcode (Decadron Conc Soln/Mycostatin Susp/Benadryl Syrup/Ora-Sweet Syrup/Ora-Plus Susp. Vehicle) Q6H PRN PO 10/07/16 08:30 11/06/16 08:29 I & O: 24-Hour Column 10/07/16 08:00 Intake Total 2794 ml Output Total 1450 ml Balance 1344 ml Vital Signs: Date Time Temp Pulse Resp B/P Pulse Ox O2 Delivery O2 Flow Rate FiO2 10/07/16 10:00 65 22 118/76 98 Nasal Cannula 2.0 10/07/16 08:00 36.6 69 22 135/91 100 Nasal Cannula 2.0 10/07/16 08:00 Nasal Cannula 2.0 10/07/16 07:49 51 16 100 Nasal Cannula 2.0 10/07/16 06:00 72 18 127/77 95 Nasal Cannula 2.0 10/07/16 04:00 Nasal Cannula 2.0 10/07/16 04:00 36.5 49 16 123/68 100 Nasal Cannula 2.0 10/07/16 02:08 88 20 100 Nasal Cannula 2.0 10/07/16 02:00 53 19 118/75 99 Nasal Cannula 2.0 10/07/16 00:01 36.6 56 21 129/80 95 Nasal Cannula 2.0 10/06/16 23:59 Nasal Cannula 2.0 10/06/16 22:00 58 20 122/87 99 Nasal Cannula 2.0 10/06/16 20:00 96 Nasal Cannula 2.0 10/06/16 20:00 36.6 66 20 132/90 98 Nasal Cannula 2.0 10/06/16 19:45 89 22 100 Nasal Cannula 2.0 10/06/16 18:00 69 22 127/79 98 Nasal Cannula 2.0 10/06/16 16:00 36.8 71 22 134/89 98 Nasal Cannula 2.0 10/06/16 16:00 Nasal Cannula 2.0 10/06/16 14:20 78 24 99 Nasal Cannula 2.0 10/06/16 14:00 53 21 132/74 99 Nasal Cannula 2.0 10/06/16 12:00 36.7 61 20 133/88 98 Nasal Cannula 2.0 10/06/16 12:00 Nasal Cannula 2.0 Laboratory Results: Last 24 Hours Test 10/06/16 11:59 10/06/16 17:43 10/06/16 21:27 10/07/16 05:45 Bedside Glucose 120 mg/dl 121 mg/dl 117 mg/dl White Blood Count 11.88 K/uL Red Blood Count 4.62 M/uL Hemoglobin 12.6 g/dL Hematocrit 38.9 % Mean Corpuscular Volume 84.2 fL Mean Corpuscular Hemoglobin 27.3 pg Mean Corpuscular Hemoglobin Concent 32.4 g/dl Platelet Count 256 K/uL Mean Platelet Volume 10.3 fL Neutrophils (%) (Auto) 83.8 % Lymphocytes (%) (Auto) 12.2 % Monocytes (%) (Auto) 3.1 % Eosinophils (%) (Auto) 0.0 % Basophils (%) (Auto) 0.1 % Neutrophils # (Auto) 9.95 K/uL Lymphocytes # (Auto) 1.45 K/uL Monocytes # (Auto) 0.37 K/uL Eosinophils # (Auto) 0.00 K/uL Basophils # (Auto) 0.01 K/uL RDW Standard Deviation 44.6 fL RDW Coefficient of Variation 14.4 % Immature Granulocyte % (Auto) 0.8 % Immature Granulocyte # (Auto) 0.10 K/uL Sodium Level 138 mmol/L Potassium Level 4.4 mmol/L Chloride Level 103 mmol/L Carbon Dioxide Level 28 mmol/L Anion Gap 7.0 mmol/L Blood Urea Nitrogen 14 mg/dl Creatinine 0.55 mg/dl Est Creatinine Clear Calc Drug Dose 158.0 ml/min Estimated GFR () 136.0 Estimated GFR (Non- 117.3 BUN/Creatinine Ratio 25.1 Random Glucose 138 mg/dl Calcium Level 8.2 mg/dl Phosphorus Level 2.7 mg/dl Magnesium Level 2.6 mg/dl Total Bilirubin 0.4 mg/dl Direct Bilirubin < 0.1 mg/dl Aspartate Amino Transf (AST/SGOT) 9 U/L Alanine Aminotransferase (ALT/SGPT) 15 U/L Alkaline Phosphatase 43 U/L Total Protein 6.1 gm/dl Albumin 3.0 gm/dl
[2016-10-07] MEDS: HYDROCODONE/HOMATROPINE SYRUP 5MG/1.5MG 5ML UDP PO PRN ×2 (13:48→19:40)
--- NOTE | 2016-10-07 14:35 | Medical Consult ---
Consultation Note Date of Service Oct 07, 2016. Consultation Note Consult Dictated #[id number]
--- NOTE | 2016-10-07 15:30 | CONSULTATION REPORT ---
DATE OF CONSULTATION: 10/07/2016 CHIEF COMPLAINT: Shortness of breath. HISTORY OF PRESENT ILLNESS: This is a 41-year-old female who has been hospitalized at [facility] since October 01 of this year. The patient says that prior to her hospitalization, she had approximately 4 days of some worsening shortness of breath particularly with activity. She has had a cough that she describes as nonproductive. She says that over the ensuing 4 days, her shortness of breath did become worse, so she presented to [facility], where she was ultimately hospitalized due to a diagnosis of questionable angioedema and reactive airway disease. I did ask a question to the patient on specific history of angioedema and asthma and she denies both of these situations. She says that she does have an anaphylactic type reaction to when she comes in contact with floor wax that they used in the hospital. 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 Concerning other pulmonary symptomatology, she has never had a DVT or PE. 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 She says that she has pets at home and these have never triggered any episodes of reactive airway disease. She has been seen by ENT in the past and has had what she reports as a normal laryngoscopy in the past. She also notes that she may have had a questionable episode of aspiration prior to her admission and specifically saying that it is possible that she aspirated on some salad that she was eating salad with finely chopped lettuce. Thus far in the hospital, she has had various diagnostic studies including a CT scan of her chest, which did not show any evidence of mediastinal adenopathy. Atelectasis was noted. There is no evidence of pneumonia. There was also no evidence of PE. The patient had a CT scan of her sinuses that showed minimal mucosal thickening with no evidence of acute sinusitis. She has had numerous chest x-rays, none of which show any active disease in the chest or pneumothorax. The patient has been treated with various nebulizers and inhalers along with intravenous steroids and antibiotics in the form of Levaquin. She has had an MRSA nasal screen that was noted to be negative. She has had serology sent for influenza A and B, both of which were negative and a CBC most recently showed a white blood cell count 11.8. Hemoglobin, hematocrit and platelet count were all normal. The patient also has had coagulation studies that are normal and chemistry profile showed sodium, potassium and BUN, which were normal and her creatinine was actually low at 0.5. The patient has also had allergy testing labs sent, all of which are pending. The patient has been evaluated by pulmonary medicine and they feel that due to the patient's atypical presentation and current clinical status and persistent cough that she should be evaluated by bronchoscopy to evaluate for etiology such as tracheomalacia or tracheal or bronchial foreign body. For this reason, we are asked to participate in her care. I did question the patient on numerous symptoms and she has not had any falls, visual changes, or tinnitus. She does note a sore throat from excessive coughing. She denies any recent sinusitis. No neck pain or chest pain is noted. She does note shortness of breath with activity. She also notes a nonproductive cough. She denies abdominal pain, nausea, vomiting or diarrhea. She denies dysuria. She has no history of DVT or PE. She denies any history of seizure. PAST MEDICAL HISTORY: Includes the followin. Kidney stones. 2. There was a reported history of angioedema, although the patient denies this. 3. There is a reported history of asthma, although the patient denies this. PAST SURGICAL HISTORY: Includes tubal ligation. ALLERGIES: THE PATIENT SAYS THAT SHE IS ALLERGIC TO FLOOR WAXES AND POLISHES, WHICH DO CAUSE WHAT SHE DESCRIBES AN ANAPHYLACTIC TYPE REACTION. SHE ALSO NOTES THAT SHE IS ALLERGIC TO PENICILLIN, ALTHOUGH SHE ADMITS THAT THIS CAUSES NAUSEA, VOMITING, SO THIS MAY NOT BE A TRUE REACTION. OUTPATIENT MEDICATIONS: Include, 1. Albuterol inhaler as needed. 2. Benadryl as needed. 3. Epinephrine pen as needed. 4. Claritin 10 mg daily. 5. Zofran as needed. CURRENT MEDICATION REGIMEN: Includes the followin. Asmanex inhaler in the evening. 2. Nystatin swish and swallow as needed. 3. Protonix 40 mg daily. 4. Solu-Medrol 60 mg every 6 hours. 5. Atrovent and Xopenex nebs. 6. Hycodan as needed. 7. Lorazepam as needed. 8. Benadryl as needed. 9. Levaquin 750 mg daily. 10. Claritin 10 mg daily. 11. Mucinex 600 mg every 12 hours. 12. Lovenox 40 mg subcutaneously every evening. SOCIAL HISTORY: She is a lifetime nonsmoker. FAMILY HISTORY: Negative for coronary artery disease. REVIEW OF SYSTEMS: As noted above. PHYSICAL EXAMINATION: VITAL SIGNS: The patient is currently afebrile with a temperature of 36.7, pulse 80 and regular, respirations are 15 and they are nonlabored, blood pressure is 135/79, and pulse ox 99% on 2 liters. SKIN: Warm with good turgor. GENERAL: She is alert. She is oriented x3. She is in no distress at this time. HEENT: Head is atraumatic and normocephalic. EYES: Pupils equal, round and reactive to light and accommodation. Extraocular motions are intact. EARS: Auditory acuity is grossly intact. NOSE: Nasal patency was intact. Sinuses are nontender. MOUTH: Moist without exudates. NECK: Supple. No JVD is noted. There is no tracheal shift or stridor. Her voice did sound raspy. CARDIOVASCULAR: Regular rate and rhythm. LUNGS: Clear to auscultation. I did not appreciate any rales, rhonchi or wheezing. ABDOMEN: Soft and nontender. EXTREMITIES: Revealed no cyanosis, clubbing or edema. NEUROLOGIC: Revealed cranial nerves II through XII are grossly intact. No focal deficits are noted. DIAGNOSTIC DATA: As noted above. IMPRESSION: A 41-year-old female with reactive airway disease and questionable bronchial asthma and angioedema. PLAN: We will continue the patient's current medication regimen of nebulizers and inhalers, antibiotics and steroids. We have been asked to evaluate by the pulmonary service with question of bronchoscopy to evaluate for etiologies such as tracheomalacia or foreign body as well as to evaluate the subglottic area. We will tentatively plan on performing this procedure on October 08, which is tomorrow. I had a lengthy discussion with the patient and her at the bedside and they wish to proceed. CHAVA
[2016-10-07] MEDS: LEVOFLOXACIN / D5W 750 MG in PREMIXED IN D5W 150 ML IV SCH (17:39)
[2016-10-07] MEDS: ENOXAPARIN 40 MG/0.4 ML SYR SC SCH (20:54)
[2016-10-07] MEDS: MOMETASONE FUROATE 14 PUFF/1 INHALER INH SCH (20:54)
[2016-10-08] VITALS (38 sets, daily range): BP systolic 113–138; BP diastolic 67–95; PULSE 50–82; TEMP 36.4–36.8; O2SAT 90–99
[2016-10-08] MEDS: LEVALBUTEROL 1.25MG/0.5ML NEB INH SCH ×3 (01:36→19:18)
[2016-10-08] MEDS: IPRATROPIUM BROMIDE NEB SOLN 0.02% 2.5 ML VIAL INH SCH ×3 (01:36→19:18)
[2016-10-08] MEDS: METHYLPREDNISOLONE IV 60 MG in SYRINGE 0 ML IV SCH ×2 (02:15→08:29)
[2016-10-08 06:33] LABS: ALT/SGPT 16 U/L (12-78); AST/SGOT 10 U/L (15-37); BLOOD UREA NITROGEN 16 mg/dl (7-18); BUN/CREATININE RATIO 25.3 (10-20); CALCIUM 8.4 mg/dl (8.5-10.1); CARBON DIOXIDE 27 mmol/L (21-32); CHLORIDE 104 mmol/L (98-107); CREATININE 0.65 mg/dl (0.60-1.20); GLUCOSE 144 mg/dl (70-99); MAGNESIUM 2.6 mg/dl (1.8-2.4); POTASSIUM 4.4 mmol/L (3.5-5.1); SODIUM 139 mmol/L (136-145)
[2016-10-08 06:41] LABS: ALKALINE PHOSPHATASE 41 U/L (45-117); PHOSPHORUS 2.5 mg/dl (2.5-4.9)
[2016-10-08 06:55] LABS: BASO % 0.1 %; BASO ABS # 0.01 K/uL (0-0.2); EOS % 0.1 %; HEMATOCRIT 39.3 % (37-47); IG% 1.2 %; LYMPH % 9.9 %; LYMPH ABS # 1.19 K/uL (1.2-3.4); MEAN CELL VOLUME 82.9 fL (80-100); MEAN CORPUSCULAR HEMOGLOBIN 27.6 pg (25-34); MEAN PLATELET VOLUME 9.9 fL (7.4-10.4); MONO % 3.2 %; NEUT % 85.5 %; PLATELET COUNT 236 K/uL (130-400); RED BLOOD COUNT 4.74 M/uL (4.2-5.4); WHITE BLOOD COUNT 12.05 K/uL (4.8-10.8)
[2016-10-08 07:00] LABS: COMPLETE YES; MEAN CORPUSCULAR HGB CONC 33.3 g/dl (32-36)
--- NOTE | 2016-10-08 07:47 | PULMONARY PROGRESS NOTE ---
DATE: 10/08/2016 The patient is comfortable, states she had a fairly good night. Her accompanies her today. I spoke with both of them at great length this morning. According to nurses' note she had a fairly good night without any difficulty. There is no evidence of any upper airway obstruction. She is scheduled for bronchoscopy this morning. She has mild chest discomfort with coughing in the upper airway area. PHYSICAL EXAMINATION: VITAL SIGNS: Stable and she is afebrile. Oxygen saturation 95% on room air. Blood pressure 129/85. Weight 95 kilograms, which is stable. Nurses' notes and meds reviewed. HEENT: Unremarkable. No thrush noted. Palate elevates appropriately. Tongue protrudes in the midline. No tenderness noted over the neck or trachea. Thyroid normal. No adenopathy noted. Expansion of the thorax is normal with deep inspiration. HEART: Regular rate and rhythm. No murmurs are heard. LUNGS: Clear today with no wheezing noted. ABDOMEN: Soft, nontender. With forced expiration she does have coughing which is nonproductive. EXTREMITIES: Reveal no cyanosis, clubbing or edema. LABORATORY DATA: White count 12.05 but she is on high doses of methylprednisolone. Hemoglobin 13.1. PRP looks good. Normal liver function studies. Phosphorous and magnesium are unremarkable with the magnesium slightly high at 2.6. Compliment is unremarkable with a CH50 being slightly increased. MRSA and DNA surveillance screens negative. Chest x-ray yesterday looked good. IMPRESSION: 1. Bronchial asthma exacerbation. 2. Rule out upper airway obstruction. RECOMMENDATIONS: 1. Bronchoscopy. 2. Decrease the Solu-Medrol now and I think she probably could go on prednisone 40 mg a day with a taper over about 2 weeks to 4 weeks. 3. Increase activity. She needs to get up and walking. 4. Continue stopping Asmanex and adding Symbicort 160/4.5 two puffs b.i.d. I think Mucinex could be discontinued. I do not find any evidence of infection. I think the Levaquin probably could be discontinued as well. Overall, she is stable. She will follow up with Dr. Lara as an outpatient.
[2016-10-08] MEDS: GUAIFENESIN 600 MG TABCR PO SCH (08:03)
[2016-10-08] MEDS: LORATADINE 10 MG TAB PO SCH (08:03)
[2016-10-08] MEDS: PANTOprazole INJ 40 MG in SYRINGE 0 ML IV SCH (08:29)
--- NOTE | 2016-10-08 10:56 | Critical Care Progress Note ---
Critical Care Progress Note Date of Service Oct 08, 2016. Attending Subjective She had a good night. No worsening wheezing. No increased cough or sputum. No fever or chills. No new meds. I spoke with [facility] surgeon who will be performing the bronchoscopy. Objective Vitals-afeb/VSS HEENT--no new focal changes. Pulmonary--exchange is really good--I don't hear much of any wheezing AM today, speaking in complete sentences. Cardio--rate and volume to track GI--OBR and monitor progress. Musculo--no changes Neuro--no focal changes Psychiatric--appears calm at the time of visit AM today Assessment & Plan Atypical Asthma--Will investigate the airways and vocal cords today. Will reduce the steroids and discontinue the antibiotic. Continue general supportive care and if broncho goes well may transfer out of the ICU Critical Care Time--40 minutes Consults & Procedures Consultants: Dr Garcia--Pulmonary Data Medications: Current Inpatient Medications Medications (Trade) Dose Ordered Sig/Hussein Route Start Time Stop Time Status Last Admin Dose Admin Enoxaparin Sodium (Lovenox Inj) 40 mg QPM SC 10/01/16 21:00 10/31/16 20:59 10/07/16 20:54 40 MG Acetaminophen (Tylenol Tab) 650 mg Q4H PRN PO 10/01/16 15:00 10/31/16 14:59 10/05/16 18:40 650 MG Al Hydrox/Mg Hydrox/Simethicone (Maalox Max Susp) 15 ml Q4H PRN PO 10/01/16 15:00 10/31/16 14:59 Magnesium Hydroxide (Milk Of Magnesia Susp) 30 ml Q12H PRN PO 10/01/16 15:00 10/31/16 14:59 Ondansetron HCl (Zofran Inj) 4 mg Q6H PRN IV 10/01/16 15:00 10/31/16 14:59 10/05/16 20:23 4 MG Albuterol (Ventolin Hfa Inhaler) 1 puffs Q4 PRN INH 10/01/16 15:00 10/31/16 14:59 Epinephrine (Epipen) 0.3 mg UD PRN IM 10/01/16 15:00 10/31/16 14:59 Loratadine (Claritin Tab) 10 mg DAILY PO 10/02/16 09:00 11/01/16 08:59 10/05/16 08:06 10 MG Menthol 1 zohaib 1 zohaib PRN PRN PO 10/01/16 16:45 10/31/16 16:44 10/01/16 16:44 1 ZOHAIB Levofloxacin/Prmx (Levaquin / D5W/ Premixed D5W) 150 ml @ 100 mls/hr DAILY@1600 IV 10/04/16 16:00 10/08/16 23:59 10/07/16 17:39 100 MLS/HR Ioversol (Optiray 320) 125 ml UD PRN IV 10/04/16 16:00 10/08/16 15:59 Ioversol (Optiray 320) 111 ml UD PRN IV 10/05/16 17:15 10/09/16 17:14 Lorazepam (Ativan Inj) 0.5 mg Q4H PRN IV 10/05/16 20:15 11/04/16 20:14 Diphenhydramine HCl 50 mg 50 mg Q6H PRN IV 10/05/16 20:15 11/04/16 20:14 Lorazepam/Syringe (Ativan Inj/ Syringe) 1 ml @ 1 mls/min Q4H PRN IV 10/05/16 20:30 11/04/16 20:29 Ipratropium [place] (Atrovent 0.02% 0.5MG/2.5ML Neb) 0.5 mg Q6R INH 10/05/16 21:00 11/04/16 20:59 10/08/16 07:36 0.5 MG Levalbuterol (Xopenex 1.25MG/ 0.5ML Neb) 1.25 mg Q6R INH 10/05/16 21:00 11/04/16 20:59 10/08/16 07:36 1.25 MG Ipratropium [place] (Atrovent 0.02% 0.5MG/2.5ML Neb) 0.5 mg Q2H PRN INH 10/05/16 20:30 11/04/16 20:29 Levalbuterol (Xopenex 1.25MG/ 0.5ML Neb) 1.25 mg Q2H PRN INH 10/05/16 20:30 11/04/16 20:29 Hydrocodone Bit/ Homatropine Methylb (Hycodan Syrup) 5 ml Q4H PRN PO 10/05/16 21:00 10/19/16 20:59 10/06/16 01:03 5 ML Hydrocodone Bit/ Homatropine Methylb (Hycodan Syrup) 10 ml Q4H PRN PO 10/05/16 21:00 10/19/16 20:59 10/07/16 19:40 10 ML Mometasone Furoate 1 puff PM INH 10/07/16 21:00 11/06/16 20:59 10/07/16 20:54 1 PUFF Dexamethasone 3.75 mg/Nystatin 30 ml/ Diphenhydramine HCl 300 mg/ Sucrose 45 ml/ Microcrystalline Cellulose 45 ml/ Barcode 1 ea Q6H PRN PO 10/07/16 08:30 11/06/16 08:29 Methylprednisolone Sodium Succinate/ Syringe (Solu-Medrol IV/ Syringe) 0.64 ml @ 1.5 mls/min Q6H IV 10/08/16 12:00 11/07/16 11:59 Lansoprazole (Prevacid Solutab) 30 mg DAILY PO 10/09/16 09:00 11/08/16 08:59 I & O: 24-Hour Column 10/08/16 07:59 Intake Total 2310 ml Output Total 1600 ml Balance 710 ml Vital Signs: Date Time Temp Pulse Resp B/P Pulse Ox O2 Delivery O2 Flow Rate FiO2 10/08/16 09:18 36.4 66 16 124/83 95 Room Air 10/08/16 07:36 59 16 98 Room Air 10/08/16 07:30 Room Air 10/08/16 07:30 36.4 67 16 129/73 95 Room Air 10/08/16 06:00 60 16 129/85 95 Room Air 10/08/16 04:00 36.7 54 17 138/85 97 Room Air 10/08/16 04:00 Room Air 10/08/16 02:00 74 21 116/69 96 Room Air 10/08/16 01:36 63 16 95 Room Air 10/08/16 00:01 36.7 50 17 115/77 95 Room Air 10/07/16 23:59 Room Air 10/07/16 22:00 78 13 123/70 97 Room Air 10/07/16 20:00 Room Air 10/07/16 20:00 36.6 69 24 151/97 100 Room Air 10/07/16 18:10 67 16 100 Nasal Cannula 2.0 10/07/16 18:00 86 22 137/82 98 Room Air 10/07/16 16:00 Nasal Cannula 2.0 10/07/16 16:00 36.7 64 23 120/75 97 Room Air 10/07/16 15:00 59 16 100 Nasal Cannula 2.0 10/07/16 14:00 80 15 135/79 99 Nasal Cannula 2.0 10/07/16 12:00 Nasal Cannula 2.0 10/07/16 12:00 36.7 47 16 123/74 100 Nasal Cannula 2.0 Laboratory Results: Last 24 Hours Test 10/07/16 18:08 10/08/16 05:49 10/08/16 06:49 Bedside Glucose 102 mg/dl Sodium Level 139 mmol/L Potassium Level 4.4 mmol/L Chloride Level 104 mmol/L Carbon Dioxide Level 27 mmol/L Anion Gap 8.0 mmol/L Blood Urea Nitrogen 16 mg/dl Creatinine 0.65 mg/dl Est Creatinine Clear Calc Drug Dose 133.7 ml/min Estimated GFR () 128.7 Estimated GFR (Non- 111.1 BUN/Creatinine Ratio 25.3 Random Glucose 144 mg/dl Calcium Level 8.4 mg/dl Phosphorus Level 2.5 mg/dl Magnesium Level 2.6 mg/dl Total Bilirubin 0.6 mg/dl Direct Bilirubin < 0.1 mg/dl Aspartate Amino Transf (AST/SGOT) 10 U/L Alanine Aminotransferase (ALT/SGPT) 16 U/L Alkaline Phosphatase 41 U/L Total Protein 6.1 gm/dl Albumin 3.1 gm/dl White Blood Count 12.05 K/uL Red Blood Count 4.74 M/uL Hemoglobin 13.1 g/dL Hematocrit 39.3 % Mean Corpuscular Volume 82.9 fL Mean Corpuscular Hemoglobin 27.6 pg Mean Corpuscular Hemoglobin Concent 33.3 g/dl Platelet Count 236 K/uL Mean Platelet Volume 9.9 fL Neutrophils (%) (Auto) 85.5 % Lymphocytes (%) (Auto) 9.9 % Monocytes (%) (Auto) 3.2 % Eosinophils (%) (Auto) 0.1 % Basophils (%) (Auto) 0.1 % Neutrophils # (Auto) 10.30 K/uL Lymphocytes # (Auto) 1.19 K/uL Monocytes # (Auto) 0.39 K/uL Eosinophils # (Auto) 0.01 K/uL Basophils # (Auto) 0.01 K/uL RDW Standard Deviation 42.4 fL RDW Coefficient of Variation 14.0 % Immature Granulocyte % (Auto) 1.2 % Immature Granulocyte # (Auto) 0.15 K/uL
[2016-10-08] MEDS ORDERED: METHYLPREDNISOLONE IV 40 MG in SYRINGE 0 ML IV SCH (12:00)
[2016-10-08] MEDS ORDERED: FENTANYL CITRATE INJ 50 MCG/1 ML 2 ML VIAL ONE (13:32)
[2016-10-08] MEDS ORDERED: PROPOFOL IV EMULSION 10 MG/ML 20 ML VIAL IV ONE (13:32)
[2016-10-08] MEDS ORDERED: LIDOCAINE HCL 2% 2 ML VIAL (20MG/ML) ONE (13:32)
[2016-10-08] MEDS ORDERED: MIDAZOLAM HCL 1 MG/ML 2ML VIAL ONE ×2 (13:32→13:33)
[2016-10-08] MEDS ORDERED: ATROPINE SULFATE 0.1 MG/ML 5ML SYR IV PRN (14:00)
[2016-10-08] MEDS ORDERED: FENTANYL CITRATE INJ 50 MCG/1 ML 2 ML VIAL IV PRN (14:00)
[2016-10-08] MEDS ORDERED: EpHEDrine SULFATE INJ 50 MG/ML AMP IV PRN (14:00)
[2016-10-08] MEDS ORDERED: ONDANSETRON INJ 2 MG/ML 2 ML VIAL IV PRN (14:00)
--- NOTE | 2016-10-08 14:11 | Anesthesiology Progress Note ---
Anesthesia Post Op Note Date & Time Oct 08, 2016 at 14:11 Vital Signs Pain Intensity: 0.0 Vital Signs Past 12 Hours Date Time Temp Pulse Resp B/P Pulse Ox O2 Delivery O2 Flow Rate FiO2 10/08/16 14:00 36.8 82 16 125/77 95 Room Air 10/08/16 13:35 138/85 10/08/16 13:00 54 20 95 10/08/16 12:59 53 21 138/85 95 10/08/16 12:00 65 24 96 10/08/16 11:59 69 19 131/87 95 10/08/16 11:30 36.8 60 16 123/89 95 Room Air 10/08/16 11:30 Room Air 10/08/16 11:00 58 18 94 10/08/16 10:59 62 20 123/84 94 10/08/16 10:00 55 9 95 10/08/16 09:59 60 17 135/81 94 10/08/16 09:18 36.4 66 16 124/83 95 Room Air 10/08/16 09:00 64 21 95 10/08/16 08:59 66 19 124/83 95 10/08/16 08:00 59 20 95 10/08/16 08:00 Room Air 10/08/16 07:59 64 19 125/76 94 10/08/16 07:36 59 16 98 Room Air 10/08/16 07:30 Room Air 10/08/16 07:30 36.4 67 16 129/73 95 Room Air 10/08/16 07:00 52 18 95 10/08/16 06:00 60 16 129/85 95 Room Air 10/08/16 04:00 36.7 54 17 138/85 97 Room Air 10/08/16 04:00 Room Air Notes Mental Status: alert / awake / arousable, participated in evaluation Pt Amnestic to Procedure: Yes Nausea / Vomiting: adequately controlled Pain: adequately controlled Airway Patency, RR, SpO2: stable & adequate BP & HR: stable & adequate Hydration State: stable & adequate Anesthetic Complications: no major complications apparent
--- NOTE | 2016-10-08 14:57 | Medical Student: [facility] ---
Immediate Operative Summary Operative Date Oct 08, 2016. Pre-Operative Diagnosis possible foreign body in airway Post-Operative Diagnosis normal airway Procedure(s) Performed flexible bronchoscopy Surgeon Dr. Love Regulatory Lead Surgeon(s) none Estimated Blood Loss 0 mL Findings Normal appearing epiglottis, vocal cords, trachea, and R and L bronchi. No foreign body visualized. No vocal cord dysfunction present. Specimens none collected Anesthesia lidocaine liquid, swabs, and spray Complication(s) None Disposition Surgical ICU
--- NOTE | 2016-10-08 15:35 | SURGERY PROGRESS NOTE ---
DATE: 10/08/2016 SUBJECTIVE: Ms. Bingham was seen today on 10/08/2016. 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 Her voice is very weak and she cannot talk above the whisper. I was asked to evaluate her for a bronchoscopy to assess her vocal cord as well as to evaluate whether she has had aspirated a foreign body. I had a long talk with the patient and her . We are going to proceed with this procedure today. For specifics of her history and physical, please refer to the full consultation dictated by SHAY Slade.
--- NOTE | 2016-10-08 15:43 | OPERATIVE REPORT ---
DATE OF OPERATION: 10/08/2016 PROCEDURE: Diagnostic fiberoptic bronchoscopy. SURGEON: Dr. Love. ANESTHESIA: Local with sedation. 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 There is a psychological component to this; however, it is unclear if she has any anatomical problems with her vocal chords resulting in her hoarseness or if she has aspirated some "medicine." She feels may have occurred when she was eating several days ago. On 10/08/2016, the patient underwent an uncomplicated fiberoptic bronchoscopy. Her vocal cords were normal and moved normally. Her trachea was not inflamed. I carefully inspected both the right and left bronchial tree and irrigated out both lower lobes airways and saw no evidence of any foreign bodies or even any mucus. She tolerated it well. PROCEDURE: The patient was brought to the operating room and placed in supine position. She was sedated. After appropriate timeout had been given and we had anesthetized both nasal passages with first aerosolized lidocaine and then lidocaine jelly. I then easily placed the bronchoscope into the right naris and this easily went back to her cords. I saw no evidence of inflammation. We did inject Xylocaine over this and then suctioned it dry. Going down the record, she had some coughing. I then again irrigated the airways with Xylocaine. I then systematically in her right upper lobe where I saw no abnormalities and no evidence of inflammation or other problems. I also went into the middle lobe, the bronchus intermedius and the lower lobe segments, I saw no evidence of the abnormalities whatsoever. I irrigated out the middle lobe and the lower lobe with sterile saline and got clear fluid back. So, I removed the bronchoscope back to the germán and then went into the left side. I first went to the left upper lobe and the lingular, I saw no abnormalities. Going down into the lower lobe, I saw no abnormalities and then irrigated this out with sterile saline and again this came back clear. I slowly removed the bronchoscope and she did not have any evidence of tracheal collapse. Upon pulling this back above the cords as well as going down, it could be seen that she had no abnormalities. There were no polyps. Both cords moved nicely. I then slowly removed the bronchoscope and we terminated the procedure. She tolerated it well. I attest to the content of the Intraoperative Record and any orders documented therein. Any exceptio ns are noted below.
[2016-10-08] MEDS: LEVOFLOXACIN / D5W 750 MG in PREMIXED IN D5W 150 ML IV SCH (15:52)
--- NOTE | 2016-10-08 18:14 | Hospitalist Progress Note ---
Hospitalist Progress Note Date of Service Oct 08, 2016. Subjective Pt evaluation today including: conversation w/ patient, physical exam, chart review, lab review, review of studies, review of inpatient medication list Patient had no acute issues overnight Raza any chest pain, SOB Patient had bronchoscopy today without complication Constitutional: No fever Eyes: No redness, No worsening of vision ENT: No hearing loss, No nasal symptoms Respiratory: No cough, No shortness of breath Cardiovascular: No chest pain, No edema Abdomen: No diarrhea, No pain, No vomiting Musculoskeletal: No joint pain Female : No dysuria Psychiatric: No depression symptoms Medications Current Inpatient Medications Medications (Trade) Dose Ordered Sig/Hussein Route Start Time Stop Time Status Last Admin Dose Admin Enoxaparin Sodium (Lovenox Inj) 40 mg QPM SC 10/01/16 21:00 10/31/16 20:59 10/07/16 20:54 40 MG Acetaminophen (Tylenol Tab) 650 mg Q4H PRN PO 10/01/16 15:00 10/31/16 14:59 10/05/16 18:40 650 MG Al Hydrox/Mg Hydrox/Simethicone (Maalox Max Susp) 15 ml Q4H PRN PO 10/01/16 15:00 10/31/16 14:59 Magnesium Hydroxide (Milk Of Magnesia Susp) 30 ml Q12H PRN PO 10/01/16 15:00 10/31/16 14:59 Ondansetron HCl (Zofran Inj) 4 mg Q6H PRN IV 10/01/16 15:00 10/31/16 14:59 10/05/16 20:23 4 MG Albuterol (Ventolin Hfa Inhaler) 1 puffs Q4 PRN INH 10/01/16 15:00 10/31/16 14:59 Epinephrine (Epipen) 0.3 mg UD PRN IM 10/01/16 15:00 10/31/16 14:59 Loratadine (Claritin Tab) 10 mg DAILY PO 10/02/16 09:00 11/01/16 08:59 10/05/16 08:06 10 MG Menthol 1 molly 1 molly PRN PRN PO 10/01/16 16:45 10/31/16 16:44 10/01/16 16:44 1 MOLLY Levofloxacin/Prmx (Levaquin / D5W/ Premixed D5W) 150 ml @ 100 mls/hr DAILY@1600 IV 10/04/16 16:00 10/08/16 23:59 10/08/16 15:52 100 MLS/HR Ioversol (Optiray 320) 111 ml UD PRN IV 10/05/16 17:15 10/09/16 17:14 Lorazepam (Ativan Inj) 0.5 mg Q4H PRN IV 10/05/16 20:15 11/04/16 20:14 Diphenhydramine HCl 50 mg 50 mg Q6H PRN IV 10/05/16 20:15 11/04/16 20:14 Lorazepam/Syringe (Ativan Inj/ Syringe) 1 ml @ 1 mls/min Q4H PRN IV 10/05/16 20:30 11/04/16 20:29 Ipratropium [place] (Atrovent 0.02% 0.5MG/2.5ML Neb) 0.5 mg Q6R INH 10/05/16 21:00 11/04/16 20:59 10/08/16 07:36 0.5 MG Levalbuterol (Xopenex 1.25MG/ 0.5ML Neb) 1.25 mg Q6R INH 10/05/16 21:00 11/04/16 20:59 10/08/16 07:36 1.25 MG Ipratropium [place] (Atrovent 0.02% 0.5MG/2.5ML Neb) 0.5 mg Q2H PRN INH 10/05/16 20:30 11/04/16 20:29 Levalbuterol (Xopenex 1.25MG/ 0.5ML Neb) 1.25 mg Q2H PRN INH 10/05/16 20:30 11/04/16 20:29 Hydrocodone Bit/ Homatropine Methylb (Hycodan Syrup) 5 ml Q4H PRN PO 10/05/16 21:00 10/19/16 20:59 10/06/16 01:03 5 ML Hydrocodone Bit/ Homatropine Methylb (Hycodan Syrup) 10 ml Q4H PRN PO 10/05/16 21:00 10/19/16 20:59 10/07/16 19:40 10 ML Mometasone Furoate 1 puff PM INH 10/07/16 21:00 11/06/16 20:59 10/07/16 20:54 1 PUFF Dexamethasone/ Nystatin/ Diphenhydramine HCl/Sucrose/ Microcrystalline Cellulose/Barcode (Decadron Conc Soln/Mycostatin Susp/Benadryl Syrup/Ora-Sweet Syrup/Ora-Plus Susp. Vehicle) Q6H PRN PO 10/07/16 08:30 11/06/16 08:29 Lansoprazole (Prevacid Solutab) 30 mg DAILY PO 10/09/16 09:00 11/08/16 08:59 Fentanyl Citrate (Fentanyl Inj) 50 mcg Q5M PRN IV 10/08/16 14:00 10/08/16 20:00 Ondansetron HCl (Zofran Inj) 4 mg ONE PRN IV 10/08/16 14:00 10/08/16 20:00 Ephedrine Sulfate (EpHEDrine SULFATE INJ) 5 mg Q5M PRN IV 10/08/16 14:00 10/08/16 20:00 Atropine Sulfate (Atropine Sulfate 0.1MG/Ml Inj) 0.5 mg Q1M PRN IV 10/08/16 14:00 10/08/16 20:00 Prednisone (PredniSONE TAB) 50 mg Taper DAILY@0800 PO 10/09/16 08:00 10/14/16 07:59 Objective Vital Signs Date Time Temp Pulse Resp B/P Pulse Ox O2 Delivery O2 Flow Rate FiO2 10/08/16 17:30 36.7 80 16 127/81 95 Room Air 10/08/16 16:11 36.8 65 20 99 2.0 10/08/16 15:00 65 20 99 10/08/16 14:59 62 16 131/95 99 10/08/16 14:45 53 21 90 10/08/16 14:44 61 21 122/86 96 10/08/16 14:30 58 19 99 10/08/16 14:29 55 20 136/92 97 10/08/16 14:18 Nasal Cannula 10/08/16 14:15 72 18 94 10/08/16 14:14 63 19 123/89 94 10/08/16 14:03 68 16 125/77 93 10/08/16 14:00 Room Air 10/08/16 14:00 36.8 82 16 125/77 95 Room Air 10/08/16 13:35 138/85 10/08/16 13:00 54 20 95 10/08/16 12:59 53 21 138/85 95 10/08/16 12:00 65 24 96 10/08/16 11:59 69 19 131/87 95 10/08/16 11:30 36.8 60 16 123/89 95 Room Air 10/08/16 11:30 Room Air 10/08/16 11:00 58 18 94 10/08/16 10:59 62 20 123/84 94 10/08/16 10:00 55 9 95 10/08/16 09:59 60 17 135/81 94 10/08/16 09:18 36.4 66 16 124/83 95 Room Air 10/08/16 09:00 64 21 95 10/08/16 08:59 66 19 124/83 95 10/08/16 08:00 59 20 95 10/08/16 08:00 Room Air 10/08/16 07:59 64 19 125/76 94 10/08/16 07:36 59 16 98 Room Air 10/08/16 07:30 Room Air 10/08/16 07:30 36.4 67 16 129/73 95 Room Air 10/08/16 07:00 52 18 95 10/08/16 06:00 60 16 129/85 95 Room Air 10/08/16 04:00 36.7 54 17 138/85 97 Room Air 10/08/16 04:00 Room Air 10/08/16 02:00 74 21 116/69 96 Room Air 10/08/16 01:36 63 16 95 Room Air 10/08/16 00:01 36.7 50 17 115/77 95 Room Air 10/07/16 23:59 Room Air 10/07/16 22:00 78 13 123/70 97 Room Air 10/07/16 20:00 Room Air 10/07/16 20:00 36.6 69 24 151/97 100 Room Air Physical Exam General Appearance: WD/WN, no apparent distress Eyes: normal inspection ENT: normal ENT inspection Neck: supple, no adenopathy Respiratory/Chest: chest non-tender, lungs clear Cardiovascular: regular rate, rhythm, no edema Abdomen: normal bowel sounds, non tender, soft, no organomegaly Extremities: normal range of motion, non-tender, normal inspection Neurologic/Psychiatric: international coordinator II-XII nml as tested, no motor/sensory deficits, alert, oriented x 3 Lymphatic: no adenopathy Laboratory Results Last 24 Hours Test 10/08/16 05:49 10/08/16 06:49 Sodium Level 139 mmol/L Potassium Level 4.4 mmol/L Chloride Level 104 mmol/L Carbon Dioxide Level 27 mmol/L Anion Gap 8.0 mmol/L Blood Urea Nitrogen 16 mg/dl Creatinine 0.65 mg/dl Est Creatinine Clear Calc Drug Dose 133.7 ml/min Estimated GFR () 128.7 Estimated GFR (Non- 111.1 BUN/Creatinine Ratio 25.3 Random Glucose 144 mg/dl Calcium Level 8.4 mg/dl Phosphorus Level 2.5 mg/dl Magnesium Level 2.6 mg/dl Total Bilirubin 0.6 mg/dl Direct Bilirubin < 0.1 mg/dl Aspartate Amino Transf (AST/SGOT) 10 U/L Alanine Aminotransferase (ALT/SGPT) 16 U/L Alkaline Phosphatase 41 U/L Total Protein 6.1 gm/dl Albumin 3.1 gm/dl White Blood Count 12.05 K/uL Red Blood Count 4.74 M/uL Hemoglobin 13.1 g/dL Hematocrit 39.3 % Mean Corpuscular Volume 82.9 fL Mean Corpuscular Hemoglobin 27.6 pg Mean Corpuscular Hemoglobin Concent 33.3 g/dl Platelet Count 236 K/uL Mean Platelet Volume 9.9 fL Neutrophils (%) (Auto) 85.5 % Lymphocytes (%) (Auto) 9.9 % Monocytes (%) (Auto) 3.2 % Eosinophils (%) (Auto) 0.1 % Basophils (%) (Auto) 0.1 % Neutrophils # (Auto) 10.30 K/uL Lymphocytes # (Auto) 1.19 K/uL Monocytes # (Auto) 0.39 K/uL Eosinophils # (Auto) 0.01 K/uL Basophils # (Auto) 0.01 K/uL RDW Standard Deviation 42.4 fL RDW Coefficient of Variation 14.0 % Immature Granulocyte % (Auto) 1.2 % Immature Granulocyte # (Auto) 0.15 K/uL Assessment and Plan 41 yo female with history of angioedema, has required intubation in the past, also with reactive airway disease, here with chest tightness,presents with SOB and cough. Patien had concern for worsening angioedema vs oropharyngeal edema and transferred to ICU on 10.06 Bronchial Asthma - appreciate pulmonary input - bronchoscopy today by Dr. Love which was generally unremarkable - continue nebulizers - d/c solumedrol/switch to prednisone 50 mg daily per pulmonary - patient to be seen by cemetery workers supervisor at [facility] this week, if not discharged will need to be re-scheduled Hoarseness/Dysphagia - seen by ENT on laryngoscopy - unclear etiology sinusitis/postnasal drip/however suspect anxiety with psychological component/continued ativan - bronchoscopy done today which did not showed any abnormality - per pulmonary recommend - continue Mucinex and levaquin Sinusitis - cont Levaquin/Mucinex - continue PPI as questionable component of GERD h/o recurrent Angioedema: -ENT evaluation: normal oropharynx, normal cords, no inflammation visualized in throat or swelling - racemic epinephrine given on 10.06 hypokalemia: resolved DVT proph -lovenox Disposition- will consider discharge in am if patient feels better
[2016-10-08] MEDS: MOMETASONE FUROATE 14 PUFF/1 INHALER INH SCH (20:37)
[2016-10-08] MEDS: ENOXAPARIN 40 MG/0.4 ML SYR SC SCH ×2 (20:38→22:07)
[2016-10-09] VITALS (8 sets, daily range): BP systolic 115–121; BP diastolic 69–80; PULSE 71–83; TEMP 36.4–36.7; O2SAT 94–98
[2016-10-09] MEDS: LEVALBUTEROL 1.25MG/0.5ML NEB INH SCH ×2 (02:32→07:22)
[2016-10-09] MEDS: IPRATROPIUM BROMIDE NEB SOLN 0.02% 2.5 ML VIAL INH SCH ×2 (02:32→07:22)
[2016-10-09 06:22] LABS: BASO % 0.1 %; BASO ABS # 0.02 K/uL (0-0.2); COMPLETE YES; EOS % 0.1 %; IG% 1.8 %; LYMPH % 22.4 %; LYMPH ABS # 4.28 K/uL (1.2-3.4); MEAN CELL VOLUME 80.8 fL (80-100); MEAN CORPUSCULAR HEMOGLOBIN 27.7 pg (25-34); MEAN CORPUSCULAR HGB CONC 34.3 g/dl (32-36); MEAN PLATELET VOLUME 10.1 fL (7.4-10.4); MONO % 7.7 %; NEUT % 67.9 %; PLATELET COUNT 258 K/uL (130-400); RED BLOOD COUNT 4.95 M/uL (4.2-5.4); WHITE BLOOD COUNT 19.14 K/uL (4.8-10.8)
[2016-10-09 07:05] LABS: BUN/CREATININE RATIO 28.6 (10-20); CALCIUM 8.5 mg/dl (8.5-10.1); CREATININE 0.86 mg/dl (0.60-1.20); MAGNESIUM 2.5 mg/dl (1.8-2.4); PHOSPHORUS 1.8 mg/dl (2.5-4.9); POTASSIUM 3.7 mmol/L (3.5-5.1)
--- NOTE | 2016-10-09 08:08 | PULMONARY PROGRESS NOTE ---
DATE: 10/09/2016 The patient is dramatically improved. She is out walking in the hallway today, all her symptoms have resolved. This suggests maybe some anxiety component to her disorder, perhaps some functional vocal cord disorder. She states the bronchoscopy worked very well for her. It was unremarkable. She had a good night last night. She states that occasionally when she uses albuterol before exercising, it may cause some coughing, and I asked her to hold on using the albuterol before exercising. PHYSICAL EXAMINATION: VITAL SIGNS: Stable and she is afebrile. Blood pressure 121/80, oxygen saturation 95% on room air. According to nurses' note, she had a fairly good night last night without any particular complaints, been in a normal sinus rhythm. She had a dry nonproductive cough and that has all resolved. HEENT: Unremarkable. No adenopathy noted. Thyroid normal. CHEST: Shows good expansion with deep inspiration. HEART: Regular rate and rhythm. No murmurs are heard. LUNGS: Clear today. Even with deep inspiration or forced expiration, she has no coughing. ABDOMEN: Soft, nontender. EXTREMITIES: Reveal no cyanosis, clubbing or edema. LABORATROY DATA: White count is 19,000 and hemoglobin 13.7 with no eosinophils noted. Chemistry profile looked good with a BUN of 25. Phosphorous is a bit low at 1.8 and that should be replaced since she is eating well. Complement was unremarkable except for slight elevation of total complement CH50. Urinalysis revealed +3 glucose. Sugars were in the 105-144 range. IMPRESSION: 1. Bronchial asthma. 2. Probable vocal cord dysfunction. 3. Gastroesophageal reflux disease. RECOMMENDATIONS: 1. Strict antireflux regimen discussed at great length. 2. I would consider placing her on Symbicort 160/4.5 two puffs b.i.d. and stop the Asmanex. 3. Taper the prednisone quickly but I think that could be tapered down over about a week. 4. Antireflux regimen with Prevacid. Again, discussed with the patient at great length. 5. Follow up with Joe Thibodeaux PA-C, as an outpatient in 2 weeks. I believe she has an evaluation at [facility] for allergy testing to complement what Dr. Slade has done in the past. Overall, she looks great today.
[2016-10-09] MEDS ORDERED: LANSOPRAZOLE SOLUTAB 30 MG PO SCH (09:00)
[2016-10-09] MEDS: LORATADINE 10 MG TAB PO SCH (09:00)
[2016-10-09] MEDS ORDERED: PRD10 PO (12:18)
[2016-10-09] MEDS ORDERED: LANS30TA3 PO (12:18)
--- NOTE | 2016-10-09 12:20 | Discharge Instructions ---
Discharge Instructions Admission Admission Date: Oct 01, 2016 at 15:03 Admission Diagnosis: Status Asthmaticus. Discharge Care Plan - Problem: Medical Problems: (1) Allergic reaction (2) Anaphylaxis (3) Bronchospasm (4) Respiratory distress Care Plan - Goal(s): Decrease discomfort, Improve function Care Plan - Instructions: Activity Recommendations: no limitations Recommended Home Diet: Regular Provider Instructions: Please follow up with up with the Allergy doctor at scheduled appointment Work Instructions Additional Instructions: Return to work on 10.13.16 [facility] Recommendations: Call your doctor if: * Temperature above 101 degrees * Pain not relieved by pain medicine ordered * There is increased drainage or redness from any incision * You have any unanswered questions or concerns. Your Doctors Instructions noted above were prepared by provider Brina Kaminski.
--- NOTE | 2016-10-09 14:12 | Anesthesiology Progress Note ---
Anesthesia Post Op Note Date & Time Oct 09, 2016 at 14:11 Vital Signs Pain Intensity: 0.0 Vital Signs Past 12 Hours Date Time Temp Pulse Resp B/P Pulse Ox O2 Delivery O2 Flow Rate FiO2 10/09/16 13:43 36.7 81 16 98 Room Air 10/09/16 12:00 98 Room Air 10/09/16 11:24 36.7 81 16 115/69 98 10/09/16 08:00 94 Room Air 10/09/16 07:42 36.4 83 16 117/79 94 10/09/16 07:23 81 16 98 Room Air 10/09/16 04:00 Room Air 10/09/16 04:00 36.5 71 18 121/80 95 Room Air 10/09/16 02:32 74 16 96 Room Air Notes Mental Status: alert / awake / arousable, participated in evaluation Pt Amnestic to Procedure: Yes Nausea / Vomiting: adequately controlled Pain: adequately controlled Airway Patency, RR, SpO2: stable & adequate BP & HR: stable & adequate Hydration State: stable & adequate Anesthetic Complications: no major complications apparent
--- NOTE | 2016-10-09 17:30 | Discharge Summary ---
Discharge Summary Date of Service Oct 09, 2016. Discharge Summary Admission Date: Oct 01, 2016 at 15:03 Discharge Date: Oct 09, 2016 Discharge Disposition: Home Principal Diagnosis: Reactive Airway Disease Consultations: ENT Critical Care Pulmonary Thoracic Surgery Medication Reconciliation New Medications: Lansoprazole (Prevacid Solutab) 30 Mg Tab 30 MG PO DAILY for 30 Days, #30 TAB Prednisone (Prednisone) 10 Mg Tab 50 MG PO DAILY@0800 for 5 Days, #30 TAB Continued Medications: Albuterol Sulfate (Proventil Hfa) 108 Mcg/Act Aer 2 PUFF PO Q4 PRN for Shortness of Breath Diphenhydramine Hcl (Benadryl Allergy) 25 Mg Tab 25 MG PO DIRECTED PRN for ALLERGIC REACTION Epinephrine (Epinephrine) 0.3 Mg/0.3 Ml Inj 0.3 MG IM UD PRN for ALLERGIC REACTION Loratadine (Claritin) 10 Mg Tab 10 MG PO DAILY, TAB Ondansetron Hcl (Zofran) 4 Mg Tab 4 MG PO TID PRN for Nausea, #20 TAB Discharge Exam Review of Systems: Constitutional: No chills Eyes: No worsening of vision ENT: No unusual epistaxis Respiratory: No cough, No dyspnea on exertion, No sputum Musculoskeletal: No joint pain Genitourinary - Female: No dysuria Genitourinary - Male: No dysuria, No hematuria Neurologic: No memory loss Psychiatric: No depression symptoms Endocrine: No fatigue Hematologic / Lymphatic: No abnormal bleeding/bruising Physical Exam: General Appearance: WD/WN, no apparent distress Eyes: normal inspection ENT: normal ENT inspection, hearing grossly normal Neck: supple Respiratory/Chest: chest non-tender, lungs clear Cardiovascular: regular rate, rhythm, no edema Abdomen / GI: normal bowel sounds, non tender, soft Extremities: normal inspection Neurologic/Psychiatric: e commerce specialist II-XII nml as tested, no motor/sensory deficits , alert, oriented x 3 Skin: normal color, warm/dry Lymphatic: no adenopathy Hospital Course 41 yo female with history of angioedema, has required intubation in the past, also with reactive airway disease presented to the ED with chest tightness, SOB and cough. Gabrielle was admitted to the medical floors for bronchial asthma exacerbation. Patient had concern for worsening angioedema vs oropharyngeal edema and transferred to ICU on 10.06. She was given racemic epinephrine and IV steroids. Patient continue to c/o of dysphagia and hoarseness. She did not require intubation. Critical Care and pulmonary followed the patient. thoracic surgery did a bronchoscopy on 10.08.16 which was unremarkable. Patients symptoms resolved instantaneously after bronchoscopy. She was stable for d/c on 10.09.16 Bronchial Asthma /Reactive Airway disease - appreciate pulmonary input - bronchoscopy today by Dr. Love which was generally unremarkable - continue nebulizers - d/c solumedrol/switch to prednisone 50 mg daily per pulmonary - patient to be seen by optical instrument assembler at [facility] this week, if not discharged will need to be re-scheduled Hoarseness/Dysphagia - seen by ENT on laryngoscopy - unclear etiology sinusitis/postnasal drip/however suspect anxiety with psychological component/continued ativan - bronchoscopy done 10.08 which did not showed any abnormality - continue Mucinex Sinusitis - continued on Levaquin/Mucinex - continue PPI as questionable component of GERD h/o recurrent Angioedema: -ENT evaluation: normal oropharynx, normal cords, no inflammation visualized in throat or swelling - racemic epinephrine given on 10.06 hypokalemia: resolved DVT proph -lovenox Disposition- home with f/u by optical instrument assembler Total Time Spent: Greater than 30 minutes This includes examination of the patient, discharge planning, medication reconciliation, and communication with other providers. Discharge Instructions Please refer to the electronic Patient Visit Report (Discharge Instructions) for additional information.
[2016-10-11 18:19] LABS: ALTERNARIA CLASS 0; ALTERNARIA IGE <0.10 KU/L; ASPERG FUMIG CLASS 0; ASPERG FUMIG IGE <0.10 KU/L; BAHIA GRASS ASM CLASS 0; BAHIA GRASS IGE <0.10 KU/L; BERMUDA GRASS CLASS 0; BERMUDA GRASS IGE <0.10 KU/L; BIRCH CLASS 0; BLACK LOCUST CLASS 0; BLACK LOCUST IGE <0.35 kU/L (<0.35); CASHEW CLASS 0; CASHEW IGE <0.10 KU/L; CAT DANDER CLASS 0; CLADOSPORIUM HER CLASS 0; CLADOSPORIUM HER IGE <0.10 KU/L; COCKROACH CLASS 0; CODFISH CLASS 0; D. FARINAE CLASS 0; D. FARINAE IGE <0.10 KU/L; D. PTERONYSSINUS CLASS 0; D. PTERONYSSINUS IGE <0.10 KU/L; DOG DANDER CLASS 0; EGG WHITE CLASS 0; EGG WHITE IGE <0.10 KU/L; ELM CLASS 0; ENGLISH PLAN CLASS 0; ENGLISH PLAN IGE <0.10 KU/L; HAZELNUT CLASS 0; JOHNSON CLASS 0; JOHNSON IGE <0.10 KU/L; JUNE (KENTUCKY BLUE) CLASS 0; JUNE IGE <0.10 KU/L; MAPLE (BOX ELDER) IGE <0.10 KU/L; MAPLE CLASS 0; MOUNTAIN CEDAR ASM CLASS 0; MOUNTAIN CEDAR IGE <0.10 KU/L; MUCOR CLASS 0; MUCOR IGE <0.10 KU/L; NETTLE CLASS 0; NETTLE IGE <0.10 KU/L; PEANUT IGE <0.10 KU/L; PENIC NOTATUM CLASS 0; PENIC NOTATUM IGE <0.10 KU/L; RAST ALMOND CLASS 0; RAST ALMOND IGE <0.10 KU/L; RAST HAZELNUT IGE <0.10 KU/L; ROUGH PIGWEED CLASS 0; ROUGH PIGWEED IGE <0.10 KU/L; SALMON CLASS 0; SALMON IGE <0.10 KU/L; SCALLOP CLASS 0; SCALLOP IGE <0.10 KU/L; SESAME CLASS 0; SESAME IGE <0.10 KU/L; SHORT RAGWEED CLASS 0; SHORT RAGWEED IGE <0.10 KU/L; SHRIMP CLASS 0; SOY CLASS 0; SOY IGE <0.10 KU/L; STEMPHY BOTRY CLASS 0; STEMPHY BOTRY IGE <0.10 KU/L; TUNA CLASS 0; TUNA IGE <0.10 KU/L; WALNUT CLASS 0; WHEAT CLASS 0; WHEAT IGE <0.10 KU/L; WHITE HICKORY ASM CLASS 0; WHITE HICKORY IGE <0.10 kU/L (<0.35); WHITE MULBERRY CLASS 0; WHITE MULBERRY IGE <0.10 KU/L
== END 2016-10-09 14:23 | disposition home or self-care (01) | DRG 203 ==
LOC: ENRESERVTM → ENRESERVDT → EDBD 11:19 → C.EDA 11:20 → C.2T 15:03 → C.4E 10-03 12:40 → C.MSICU 10-05 20:39 → C.MED 10-08 17:00
PROVIDERS: ADMIT Family Medicine; ATTEND Internal Medicine
PROC: 0BJ08ZZ Inspection of Tracheobronchial Tree, Via Natural or Artificial Opening Endoscopic (ICD-10-PCS; principal; 2016-10-08 13:00)
DX: J45.901 Unspecified asthma with (acute) exacerbation (principal); E87.6 Hypokalemia; J02.9 Acute pharyngitis, unspecified; K21.9 Gastro-esophageal reflux disease without esophagitis; J38.3 Other diseases of vocal cords

== ENCOUNTER → 2016-10-24 | Outpatient (CLI) | payer BC ==
[~2016-10-24] MED LIST changes: +ACET325T96 PO; +CLR10 PO; +EPIN1INJ37 IM; +HYDR-5688 PO; +IBUP-103 PO; +LANS30TA3 PO; +PRD10 PO
[2016-10-24 17:19] LABS: ALT/SGPT 29 U/L (12-78); AST/SGOT 18 U/L (15-37); BLOOD UREA NITROGEN 6 mg/dl (7-18); BUN/CREATININE RATIO 8.4 (10-20); CALCIUM 9.2 mg/dl (8.5-10.1); CARBON DIOXIDE 26 mmol/L (21-32); CHLORIDE 105 mmol/L (98-107); CREATININE 0.67 mg/dl (0.60-1.20); GLUCOSE 83 mg/dl (70-99); POTASSIUM 3.7 mmol/L (3.5-5.1); SODIUM 140 mmol/L (136-145)
[2016-10-24 17:29] LABS: ALB/GLOB RATIO 1.1 (0.9-2); ALKALINE PHOSPHATASE 56 U/L (45-117)
== END | disposition home or self-care (01) ==
LOC: C.LABBC 14:56
PROVIDERS: ATTEND Internal Medicine Geriatric Medicine
DX: R60.9 Edema, unspecified (principal)

== ENCOUNTER → 2017-02-05 | Outpatient (CLI) | payer BC ==
[2017-02-05 10:53] LABS: CHOLESTEROL/HDL RATIO 3.9
== END | disposition home or self-care (01) ==
LOC: C.LAB 07:48
PROVIDERS: ATTEND Internal Medicine
DX: Z00.00 Encounter for general adult medical examination without abnormal findings (principal); Z13.1 Encounter for screening for diabetes mellitus; Z13.220 Encounter for screening for lipoid disorders

== ENCOUNTER 2017-02-28 13:55 | Emergency (ER) | payer BC ==
[~2017-02-28] VITALS: Ht 167.6 cm; Wt 98.6 kg
[~2017-02-28 13:55] MED LIST changes: -ACET325T96 PO; -HYDR-5688 PO; -IBUP-103 PO; -ONDA4TAB46 PO
[2017-02-28 13:57] VITALS: TEMP 36.6; Ht 167.6 cm; Wt 98.6 kg
[2017-02-28] MEDS ORDERED: KETOROLAC TROMETHAMINE 30 MG/ML VIAL IV STA (14:18)
[2017-02-28] MEDS ORDERED: KETOROLAC TROMETHAMINE 60 MG/2 ML VIAL IM STA (14:19)
[2017-02-28 14:47] LABS: URINE APPEARANCE CLEAR (CLEAR); URINE BILIRUBIN NEG (NEG); URINE COLOR YELLOW; URINE NITRITE NEG (NEG); URINE SPECIFIC GRAVITY 1.009 (1.000-1.030); UROBILINOGEN NEG (NEG); ZZUR CULT IF INDIC CLEAN CATCH NO
[2017-02-28 14:50] LABS: MANUAL MICROSCOPIC REQUIRED? NO; REVIEW REQ? NO
--- NOTE | 2017-02-28 14:50 | DIAGNOSTIC IMAGING REPORT ---
L-SPINE MIN 4 VIEWS ROUTINE CLINICAL HISTORY: Right low back pain. COMPARISON: CT of the abdomen and pelvis January 16, 2016. FINDINGS: There are cholecystectomy clips. Alignment of the lumbar spine is anatomic. Vertebral body heights are maintained. There is no fracture or suspicious lesion. There is minimal multilevel disc space narrowing and osteophytosis. IMPRESSION: 1. No lumbar spine fracture or subluxation. 2. Minimal multilevel degenerative disc disease and facet arthrosis of the lumbar spine. Electronically signed by: Jacky Galeana M.D. 02/28/2017 2:48 PM Dictated Date/Time: 02/28/2017 2:43 PM
[2017-02-28] MEDS ORDERED: IBUP-103 PO (15:15)
[2017-02-28] MEDS ORDERED: ACET325T96 PO (15:15)
[2017-02-28] MEDS ORDERED: HYDR-5688 PO (15:21)
--- NOTE | 2017-02-28 15:23 | EMERGENCY ROOM VISIT NOTE ---
History First contact with patient: 14:02 Chief Complaint: BACK PAIN Stated Complaint: BACK PAIN History of Present Illness The patient is a 41 year old female who presents to the Emergency Room with complaints of low back pain. The patient states that she has had right-sided lower back pain which started this morning. She has taken 800 mg ibuprofen and 1500 mg Tylenol without relief. She states it is a sharp, squeezing pain and is concentrated in the right lumbar region. She rates the discomfort an 8/10. The pain does not radiate into her abdomen or legs. She states the pain has gradually worsened throughout the day, especially after working. She denies any numbness or weakness in the legs, bowel or bladder incontinence. She denies history of back problems. The patient does state she has a history of kidney stones but is unsure if this felt similar, as that was several years ago. She denies any nausea/vomiting or urinary symptoms. Review of Systems A complete 10 point review of systems was reviewed with the patient with pertinent positives and negatives as per history of present illness. All else were negative. Past Medical/Surgical History Medical Problems: (1) Abdominal pain (2) Acute respiratory failure (3) CALCULUS OF KIDNEY (4) CALCULUS OF URETER (5) Chest pain (6) Dyspnea (7) IRRITABLE BOWEL SYNDROME (8) LUMBAGO (9) PERITONEAL ENAKAVWJL-[id number]-LL/INF (10) Status asthmaticus (11) Toxic effect of fumes (12) TUBAL LIGATION STATUS (13) Wheeze Family History No family history of cardiac disease Social History Smoking Status: Never Smoker Alcohol Use: none Drug Use: none Marital Status: Housing Status: lives with family Occupation Status: employed Current/Historical Medications Scheduled Ibuprofen Tab (Advil), 200-600 MG PO Q4H Scheduled PRN Epinephrine (Epinephrine), 0.3 MG IM UD PRN for ALLERGIC REACTION Hydrocodone/Acetaminophen 5MG/325MG (Olancha 5MG/325MG), 1 TABLET PO Q6H PRN for Pain Miscellaneous Medications Acetaminophen Tab (Tylenol), 650 MG PO Physical Exam Vital Signs Date Time Temp Pulse Resp B/P (MAP) Pulse Ox O2 Delivery O2 Flow Rate FiO2 02/28/17 15:49 88 20 119/94 100 02/28/17 13:57 36.6 89 18 150/81 92 Room Air Physical Exam VITALS: Vitals are noted on the nurse's note and reviewed by myself. Vital signs stable. GENERAL: This is a 41-year-old female, in no acute distress, nondiaphoretic, well-developed well-nourished. SKIN: The skin was without rashes. HEART: Regular rate and rhythm without murmurs gallops or rubs. LUNGS: Clear to auscultation bilaterally without wheezes, rales or rhonchi. ABDOMEN: Soft, nontender to palpation. MUSCULOSKELETAL: Mild tenderness to palpation of the right lumbar region. No midline spinal tenderness. No CVA tenderness. Full range of motion of bilateral external wheeze. Strength 5/5 throughout. NEURO: Patient was alert and oriented to person place and time. Normal sensation to light and sharp touch. Medical Decision & Procedures ER Provider Diagnostic Interpretation: L-SPINE MIN 4 VIEWS ROUTINE FINDINGS: There are cholecystectomy clips. Alignment of the lumbar spine is anatomic. Vertebral body heights are maintained. There is no fracture or suspicious lesion. There is minimal multilevel disc space narrowing and osteophytosis. IMPRESSION: 1. No lumbar spine fracture or subluxation. 2. Minimal multilevel degenerative disc disease and facet arthrosis of the lumbar spine. Laboratory Results Test 02/28/17 14:22 Urine Color YELLOW Urine Appearance CLEAR (CLEAR) Urine pH 6.0 (4.5-7.5) Urine Specific [place] 1.009 (1.000-1.030) Urine Protein NEG (NEG) Urine Glucose (UA) NEG (NEG) Urine Ketones NEG (NEG) Urine Occult Blood NEG (NEG) Urine Nitrite NEG (NEG) Urine Bilirubin NEG (NEG) Urine Urobilinogen NEG (NEG) Urine Leukocyte Esterase NEG (NEG) Medications Administered Medications (Trade) Dose Ordered Sig/Hussein Route Start Time Stop Time Status Last Admin Dose Admin Ketorolac Tromethamine (Toradol Inj) 60 mg NOW STAT IM 02/28/17 14:19 02/28/17 14:20 DC 02/28/17 14:24 60 MG Medical Decision Differential diagnosis includes cauda equina syndrome, cord compression, disc herniation, muscle spasm, lumbar strain, epidural abscess, malignancy, transverse myelitis, urinary tract infection, colitis, diverticulitis, kidney stone, herpes zoster, among others. The patient was evaluated as above. Her exam and history are most consistent with musculoskeletal lumbar back pain. She has no CVA tenderness or urinary symptoms to suggest a kidney stone. The patient was very concerned about possible kidney stone due to a reported history of stones in the past. I did review the patient's records and it was found that she had a renal stone, but has not had an obstructing ureteral stone. Urinalysis was obtained and showed no blood in the urine. Lumbar spine x-rays were obtained and did show some degenerative disease. The patient was given IM Toradol with little relief. Conservative measures were discussed. She'll be given a short course of narcotic pain medication at home but was also instructed to take anti- inflammatories and follow up with her primary care provider as needed. [facility] Monitoring Program Search Results: patient reviewed within database, no issues identified Medication Reconcilliation Current Medication List: was personally reviewed by me Blood Pressure Screening Patient's blood pressure: Elevated blood pressure Blood pressure disposition: Elevated BP felt to be situational Impression Primary Impression: Acute lumbar back pain Departure Information Dispostion Home / Self-Care Condition GOOD Prescriptions Hydrocodone/Acetaminophen 5MG/325MG (Olancha 5MG/325MG) Tab 1 TABLET PO Q6H Y for Pain, #12 TAB For Initial Treatment Prov: Josefina Finch .BHAVANA 02/28/17 Referrals RV. Patrick MD (PCP) Patient Instructions My [facility] Additional Instructions You have been treated in the Emergency Department for Back Pain. You have been prescribed Olancha to be used for pain control. This is a narcotic medication. You cannot drive or consume alcohol while on this medicine. This medicine should only be used for pain that cannot be controlled with over-the- counter pain medicines. You should begin taking an anti-inflammatory medication such as Aleve, which is [id number]. You may take this twice a day. For pain control, you can use the following cxry-mjn-cdqlevy medicines (if >12 yo): - Regular strength (325mg/tab) Tylenol (acetaminophen) 2 tabs every 4-6 hours as needed. Do not exceed 12 tablets in a 24 hour period. Avoid taking more than 4 grams (4000 mg) of Tylenol per day. This includes any other sources of acetaminophen you may take on a regular basis. - Regular strength (200 mg/tab) Advil (ibuprofen) 1-2 tabs every 4-6 hours as needed. Do not exceed a dose of 3200 mg per day. If this is an acute injury, ice can be applied to the area of pain for the first 3 days to help decrease pain and inflammation. After the first 3 days, a heating pad can be used over the area for continued soothing relief. You should schedule a follow-up appointment in 2-3 days with your Primary Care Provider for further evaluation and treatment of your back pain. Return to the Emergency Department if your current symptoms worsen despite treatment course outlined above, or if you develop any of the following symptoms : intractable pain despite aforementioned treatment course, loss of control of your bowel or bladder, numbness or tingling in your groin, or development of a fever. Problem Qualifiers Primary Impression: Acute lumbar back pain Back pain laterality: right Sciatica presence: without sciatica Qualified Codes: M54.5 - Low back pain
[2017-02-28 15:49] VITALS: BP 119/94; PULSE 88; O2SAT 100
== END 2017-02-28 15:54 | disposition home or self-care (01) ==
LOC: C.EDB 13:57
DX: M54.5 Low back pain (principal); K58.9 Irritable bowel syndrome, unspecified; J45.909 Unspecified asthma, uncomplicated; Z87.442 Personal history of urinary calculi; Z98.51 Tubal ligation status

== ENCOUNTER → 2017-10-07 | Outpatient (CLI) | payer OTHER ==
[~2017-10-07] MED LIST changes: +ACET-1693 PO; -ALBUAER PO; -CLR10 PO; -DIPH1TAB PO; +EPIN0.3I14 IM; -EPIN1INJ37 IM; +IBUP-103 PO; -LANS30TA3 PO; -PRD10 PO
--- NOTE | 2017-10-08 15:54 | MAMMOGRAPHY REPORT ---
BILATERAL DIGITAL SCREENING MAMMOGRAM TOMOSYNTHESIS WITH CAD: 10/07/2017 CLINICAL HISTORY: Routine screening. TECHNIQUE: Bilateral CC and MLO views of the breasts with and without implant displacement views were obtained. Tomosynthesis was also performed on the implant displaced views. Current study was also evaluated with a Computer Aided Detection (CAD) system. COMPARISON: Comparison is made to exams dated: 08/12/2016 ultrasound and 08/07/2016 mammogram - [facility]. BREAST COMPOSITION: The tissue of both breasts is heterogeneously dense, which may obscure small mas ses. FINDINGS: Bilateral subglandular saline implants are intact. There is stable asymmetry in the super ior left breast on the nondisplaced MLO view. No suspicious mass, architectural distortion or cluste r of microcalcifications is seen. IMPRESSION: ACR BI-RADS CATEGORY 1: NEGATIVE 1. Stable bilateral mammograms, without mammographic evidence of malignancy. 2. However, the patient reported occasional pain in the left breast over the past 2 months for which clinical follow-up is recommended. If there is high clinical suspicion, additional targeted left br east ultrasound may be useful. The patient will receive written notification of the results. Approximately 10% of breast cancers are not detected with mammography. A negative mammographic report should not delay biopsy if a clinically suggestive mass is present. Margarita Turner M.D. ay/:10/07/2017 15:19:24 Event Sales Assistant: Karla CLEMENTS (R)([place]), [facility] letter sent: Normal 1/2 BI-RADS Code: ACR BI-RADS Category 1: Negative
== END | disposition home or self-care (01) ==
LOC: C.MAMM 14:02
PROVIDERS: ATTEND Obstetrics & Gynecology
DX: Z12.31 Encounter for screening mammogram for malignant neoplasm of breast (principal); N64.4 Mastodynia; Z98.82 Breast implant status